=== PATIENT | female | born 1935 | race Caucasian/White ===

== ENCOUNTER 2016-05-09 22:05 | Emergency (ER) | payer OTHER, BC ==
[~2016-05-09] VITALS: Ht 165.1 cm; Wt 71.4 kg
[~2016-05-09 22:05] MED LIST: CARB0.5D28 OPB; CHLO0.1222 PO; DILT-115 PO; ESCI1TAB18 PO; SPIR25TA PO; VALA1TAB31 PO; [UNRECOGNIZED DRUG - CODE] PO
[2016-05-09 22:09] VITALS: TEMP 36.6; Ht 165.1 cm; Wt 71.4 kg
[2016-05-09 22:45] LABS: BASO % 0.3 %; BASO ABS # 0.02 K/uL (0-0.2); COMPLETE YES; EOS % 1.7 %; HEMATOCRIT 42.8 % (37-47); IG% 0.2 %; LYMPH ABS # 0.97 K/uL (1.2-3.4); MEAN CELL VOLUME 97.9 fL (80-100); MEAN CORPUSCULAR HEMOGLOBIN 34.8 pg (25-34); MEAN CORPUSCULAR HGB CONC 35.5 g/dl (32-36); MONO % 13.1 %; NEUT % 69.7 %; PLATELET COUNT 184 K/uL (130-400); RED BLOOD COUNT 4.37 M/uL (4.2-5.4); WHITE BLOOD COUNT 6.48 K/uL (4.8-10.8)
--- NOTE | 2016-05-09 22:56 | DIAGNOSTIC IMAGING REPORT ---
CT SCAN OF THE BRAIN WITHOUT IV CONTRAST CLINICAL HISTORY: Lightheadedness. Hypertension. COMPARISON STUDY: CT of the brain dated 01/24/2014. TECHNIQUE: Unenhanced axial CT scan of the brain is performed from the vertex to the skull base. CT DOSE: 580.48 mGy.cm FINDINGS: Brain parenchyma: There are age-related involutional changes noting mild subcortical and periventricular microangiopathic change. There is no hemorrhage, mass effect, or evidence of acute territorial ischemia by CT criteria. Sellers-white matter is preserved. No extra-axial fluid collection is seen. Ventricles, sulci, cisterns: Prominent secondary to involutional change. Intracranial vasculature: There is atherosclerotic calcification of the cavernous carotid and vertebral arteries. Calvarium: Unremarkable. Sinuses and mastoids: There are secretions within the sphenoid sinuses. The remaining visualized paranasal sinuses are clear. The mastoid air cells are well pneumatized. Orbits: The bony orbits are grossly intact. There are bilateral ocular lens implants. IMPRESSION: There is no hemorrhage, mass effect, or evidence of acute territorial ischemia by CT criteria. Electronically signed by: New Smith M.D. 05/09/2016 10:54 PM Dictated Date/Time: 05/09/2016 10:52 PM
[2016-05-09 23:02] LABS: BLOOD UREA NITROGEN 16 mg/dl (7-18); BUN/CREATININE RATIO 15.5 (10-20); CALCIUM 8.8 mg/dl (8.5-10.1); CARBON DIOXIDE 20 mmol/L (21-32); CHLORIDE 103 mmol/L (98-107); GLUCOSE 95 mg/dl (70-99); POTASSIUM 4.1 mmol/L (3.5-5.1); SODIUM 136 mmol/L (136-145)
[2016-05-09] MEDS ORDERED: PANT40TA PO (23:07)
[2016-05-09] MEDS ORDERED: OMEG10007 PO (23:07)
[2016-05-09] MEDS ORDERED: SPR25 PO (23:07)
[2016-05-09] MEDS ORDERED: GLUC500C4 PO (23:07)
[2016-05-09] MEDS ORDERED: LXP10 PO (23:07)
[2016-05-09] MEDS ORDERED: MISCCAP80 PO (23:07)
[2016-05-09] MEDS ORDERED: VALS-10 PO (23:07)
[2016-05-09 23:52] VITALS: BP 140/86; PULSE 71; O2SAT 96
--- NOTE | 2016-05-10 02:13 | EMERGENCY ROOM VISIT NOTE ---
History First contact with patient: 22:12 Chief Complaint: HYPERTENSION Stated Complaint: HYPERTENSION, LIGHTHEADED History of Present Illness The patient is a 81 year old female who presents to the Emergency Room with complaints of high blood pressure and feeling lightheaded today. Patient's been monitoring her blood pressure for the past 2 days and this was 200/160. Patient saw the family care DrAditi today and increased her spironolactone. Patient has been slowing tapering off her Lexapro. She's been suffering from a chronic rash and they believe the rash might be due to this medication. Patient denies chest pain, dyspnea, fever, chills, numbness, tingling, weakness , vision problems, localized weakness, vomiting, diarrhea. Patient is tolerating by mouth fluids and food. She states she is just concerned about her blood pressure. She sees her family care doctor this Sunday for follow- up. . Review of Systems See HPI for pertinent positives & negatives. A total of 10 systems reviewed and were otherwise negative. Past Medical/Surgical History Medical Problems: (1) Dysthymic Disorder (2) History of anxiety (3) Hyperlipidemia Nec/Nos (4) Hypertension Nos (5) Osteoarthros Nos-L/Leg Surgical Problems: (1) Hip Joint Replacement Status (2) History of hip replacement, total Family History Heart disease Social History Smoking Status: Former Smoker Alcohol Use: none Drug Use: none Marital Status: Housing Status: lives with family Occupation Status: retired Current/Historical Medications Scheduled Escitalopram Oxalate (Escitalopram Oxalate), 10 MG PO Q2D Fish Oil ([place]-3), 1 CAP PO QPM Glucosamine Sulfate (Glucosamine), 1 TAB PO QPM Pantoprazole (Protonix), 1 TAB PO DAILY Probiotic Product (Probiotic), 1 CAP PO QPM Spironolactone (Spironolactone), 25 MG PO DAILY Valsartan/Hctz (Diovan Hct 320MG/12.5MG), 1 TAB PO DAILY Scheduled PRN Carboxymethylcellulose Sodium (Refresh Tears), 1 DROP OPB 5XD PRN for DRY EYES Allergies Coded Allergies: No Known Allergies (Unverified , 05/09/16) Physical Exam Vital Signs Date Time Temp Pulse Resp B/P Pulse Ox O2 Delivery O2 Flow Rate FiO2 05/09/16 23:52 71 18 140/86 96 Room Air 05/09/16 22:09 36.6 74 20 160/77 92 Room Air Pain Rating (0-10): 0 Physical Exam VITALS: Vitals are noted on the nurse's note and reviewed by myself. Vital signs hypertensive GENERAL: Pleasant female anxious-appearing, in no acute distress, nondiaphoretic , well-developed well-nourished. SKIN: The skin was without rashes, erythema, edema, or bruising. There is no tenting of the skin. Capillary reflex less than 2 seconds. HEAD: Normocephalic atraumatic. EARS: External auditory canals clear, tympanic membranes pearly corey without erythema or effusion bilaterally. EYES: Pupils equal round and reactive to light and accommodation. Conjunctivae without injection, sclerae without icterus. Extraocular movements intact. NOSE: Patent, turbinates without inflammation or discharge. MOUTH: Mucous membranes moist. Pharynx without erythema or exudate. Uvula midline. Airway patent. Tongue does not deviate. NECK: Supple without nuchal rigidity. No lymphadenopathy. No thyromegaly. Cervical spine is nontender. No JVD. HEART: Regular rate and rhythm LUNGS: Clear to auscultation bilaterally without wheezes, rales or rhonchi. No dullness to percussion. No retractions or accessory muscle use. ABDOMEN: Positive bowel sounds x 4. Normal tympanic percussion. Soft, nontender, without masses or organomegaly. Paulino sign negative. No guarding or rebound tenderness. MUSCULOSKELETAL: No muscle atrophy, erythema, or edema noted. NEURO: Patient was alert and oriented to person place and time. Normal sensation to light and sharp touch. No focal neurological deficits. Medical Decision & Procedures Laboratory Results 05/09/16 22:35 Red Blood Count 4.37, Mean Corpuscular Volume 97.9, Mean Corpuscular Hemoglobin 34.8, Mean Corpuscular Hemoglobin Concent 35.5, Mean Platelet Volume 11.0, Neutrophils (%) (Auto) 69.7, Lymphocytes (%) (Auto) 15.0, Monocytes (%) (Auto) 13.1, Eosinophils (%) (Auto) 1.7, Basophils (%) (Auto) 0.3, Neutrophils # (Auto ) 4.52, Lymphocytes # (Auto) 0.97, Monocytes # (Auto) 0.85, Eosinophils # (Auto ) 0.11, Basophils # (Auto) 0.02 05/09/16 22:35 Test 05/09/16 22:35 White Blood Count 6.48 K/uL (4.8-10.8) Red Blood Count 4.37 M/uL (4.2-5.4) Hemoglobin 15.2 g/dL (12.0-16.0) Hematocrit 42.8 % (37-47) Mean Corpuscular Volume 97.9 fL (80-100) Mean Corpuscular Hemoglobin 34.8 pg (25-34) Mean Corpuscular Hemoglobin Concent 35.5 g/dl (32-36) Platelet Count 184 K/uL (130-400) Mean Platelet Volume 11.0 fL (7.4-10.4) Neutrophils (%) (Auto) 69.7 % Lymphocytes (%) (Auto) 15.0 % Monocytes (%) (Auto) 13.1 % Eosinophils (%) (Auto) 1.7 % Basophils (%) (Auto) 0.3 % Neutrophils # (Auto) 4.52 K/uL (1.4-6.5) Lymphocytes # (Auto) 0.97 K/uL (1.2-3.4) Monocytes # (Auto) 0.85 K/uL (0.11-0.59) Eosinophils # (Auto) 0.11 K/uL (0-0.5) Basophils # (Auto) 0.02 K/uL (0-0.2) RDW Standard Deviation 47.4 fL (36.4-46.3) RDW Coefficient of Variation 13.2 % (11.5-14.5) Immature Granulocyte % (Auto) 0.2 % Immature Granulocyte # (Auto) 0.01 K/uL (0.00-0.02) Anion Gap 13.0 mmol/L (3-11) Est Creatinine Clear Calc Drug Dose 43.7 ml/min Estimated GFR () 61.2 Estimated GFR (Non- 52.8 BUN/Creatinine Ratio 15.5 (10-20) Calcium Level 8.8 mg/dl (8.5-10.1) Troponin I < 0.015 ng/ml (0-0.045) Thyroid Stimulating Hormone (TSH) 5.440 uIu/ml (0.300-4.500) ED Course Prior records/ancillary studies reviewed regarding the history above. Triage Nursing notes reviewed. Additional history obtained from the family. The patient's history was concerning for hypertension. Differential diagnosis: Etiologies such as benign hypertension, hypertensive emergency, cardiovascular pathology, pheochromocytoma, electrolyte abnormality, renal disease, endorgan damage, as well as others were entertained. Physical examination: As above. No signs of end organ damage. ER treatment provided: Patient was observed On reassessment the patient felt better. Diagnostic interpretation by me: The electrocardiogram was negative for pathologic change. Normal sinus, normal intervals, no acute ST-T changes. Impression normal sinus rhythm interpreted by myself The labs revealed no worrisome leukocytosis or electrolyte abnormality. Negative troponin Imaging studies: Head CT negative for intracranial bleed per radiology This appears to be consistent with blood pressure that resolved on its own. This could be related to patient tapering off her Lexapro. Patient was also anxious appearing. Patient was neurovascularly and neurologically intact. Unremarkable workup as above. She is advised to rest, decrease stress and to follow-up family care as scheduled. She is advised to return to the ER immediately for headache, elevated blood pressure, chest pain, weakness, worsening signs or symptoms or as needed.. By the evaluation outlined above emergent etiologies such as hypertensive emergency, pheochromocytoma, endorgan damage, cardiac ischemia, aortic dissection, pulmonary embolism, pneumonia, pneumothorax, infections, gastrointestinal, as well as others were deemed relatively unlikely. The pt informed about the findings as listed above. All questions were answered and pleased with the treatment. Return instructions were outlined and the patient was discharged in stable condition. Referral: The patient was referred back to their primary care physician for follow-up in 2 to 3 days for a recheck of the current condition. Case reviewed with my attending Medical Decision As above Impression Primary Impression: Hypertension Departure Information Dispostion Home / Self-Care Condition GOOD Forms WORK / SCHOOL INSTRUCTIONS, HOME CARE DOCUMENTATION FORM, IMPORTANT VISIT INFORMATION Patient Instructions [facility] Additional Instructions Monitor your blood pressure. Decrease stress, caffeine, alcohol, tobacco and salt intake. Keep your appointment as scheduled this week with your family doctor. Return to ER sooner for chest pain, difficulty breathing, elevated blood pressure, weakness, worsening signs or symptoms or as needed.
== END 2016-05-09 23:56 | disposition home or self-care (01) ==
LOC: C.EDB 22:06 → C.EDC 23:56
DX: I10 Essential (primary) hypertension (principal); E78.5 Hyperlipidemia, unspecified; Z87.891 Personal history of nicotine dependence; F34.1 Dysthymic disorder

== ENCOUNTER → 2016-05-24 | Outpatient (CLI) | payer OTHER, BC ==
[~2016-05-24] MED LIST changes: +APIX1TAB3 PO; +BUDE0.09 PO; -CHLO0.1222 PO; -DILT-115 PO; +DILT-119 PO; -ESCI1TAB18 PO; +GLUC500C4 PO; +LXP10 PO; +METO25TA56 PO; +MISCCAP80 PO; +OMEG10007 PO; +PANT40TA PO; -SPIR25TA PO; +SPR25 PO; -VALA1TAB31 PO; +VALS-10 PO; -[UNRECOGNIZED DRUG - CODE] PO
[2016-05-24 11:56] LABS: COMPLETE YES; EOS % 0.8 %; HEMATOCRIT 48.7 % (37-47); IG% 0.2 %; LYMPH % 11.4 %; LYMPH ABS # 0.98 K/uL (1.2-3.4); MEAN CELL VOLUME 95.1 fL (80-100); MEAN CORPUSCULAR HEMOGLOBIN 34.6 pg (25-34); MEAN CORPUSCULAR HGB CONC 36.3 g/dl (32-36); MEAN PLATELET VOLUME 10.8 fL (7.4-10.4); MONO % 10.9 %; NEUT % 76.7 %; PLATELET COUNT 166 K/uL (130-400); RED BLOOD COUNT 5.12 M/uL (4.2-5.4)
--- NOTE | 2016-05-24 12:09 | DIAGNOSTIC IMAGING REPORT ---
CHEST 2 VIEWS ROUTINE HISTORY: Fatigue. Upper rest for infection. Cough. Assess for pneumonia. COMPARISON: Chest 06/29/2013. FINDINGS: Stable calcified granuloma within the right upper lobe and calcified right hilar lymph nodes. No focal lung consolidations to suggest pneumonia. No evidence for pulmonary edema. The heart is normal in size. No pleural effusions. No pneumothorax. IMPRESSION: No focal lung consolidations to suggest pneumonia. Electronically signed by: Neftali Blackman M.D. 05/24/2016 12:08 PM Dictated Date/Time: 05/24/2016 12:06 PM
[2016-05-24 12:32] LABS: ALT/SGPT 21 U/L (12-78); BLOOD UREA NITROGEN 20 mg/dl (7-18); BUN/CREATININE RATIO 15.1 (10-20); CALCIUM 9.4 mg/dl (8.5-10.1); CARBON DIOXIDE 23 mmol/L (21-32); CHLORIDE 99 mmol/L (98-107); GLUCOSE 97 mg/dl (70-99); MAGNESIUM 1.8 mg/dl (1.8-2.4); POTASSIUM 4.5 mmol/L (3.5-5.1); SODIUM 133 mmol/L (136-145)
[2016-05-24 12:35] LABS: ALKALINE PHOSPHATASE 112 U/L (45-117); AST/SGOT 20 U/L (15-37)
== END | disposition home or self-care (01) ==
LOC: C.RAD 11:35
PROVIDERS: ATTEND Nurse Practitioner Family
DX: R53.83 Other fatigue (principal); I10 Essential (primary) hypertension

== ENCOUNTER 2016-06-29 12:22 | Inpatient (IN) | payer OTHER, BC ==
[~2016-06-29] VITALS: Ht 167.6 cm; Wt 69.2 kg
[~2016-06-29 12:22] MED LIST changes: -APIX1TAB3 PO; -BUDE0.09 PO; -DILT-119 PO; -METO25TA56 PO
[2016-06-29] MEDS ORDERED: OPTIRAY 320 IV PRN (14:00)
[2016-06-29 14:32] LABS: BASO % 0.1 %; BASO ABS # 0.01 K/uL (0-0.2); COMPLETE YES; EOS % 0.6 %; HEMATOCRIT 40.7 % (37-47); IG% 0.3 %; LYMPH % 8.2 %; LYMPH ABS # 0.72 K/uL (1.2-3.4); MEAN CELL VOLUME 94.2 fL (80-100); MEAN CORPUSCULAR HGB CONC 37.1 g/dl (32-36); MEAN PLATELET VOLUME 10.5 fL (7.4-10.4); MONO % 16.4 %; NEUT % 74.4 %; PLATELET COUNT 195 K/uL (130-400); RED BLOOD COUNT 4.32 M/uL (4.2-5.4)
[2016-06-29] MEDS ORDERED: BUDE0.09 PO (14:46)
[2016-06-29] MEDS ORDERED: DILT-119 PO (14:46)
[2016-06-29] MEDS ORDERED: METO25TA56 PO (14:46)
[2016-06-29 14:51] LABS: ALT/SGPT 134 U/L (12-78); AST/SGOT 112 U/L (15-37); BLOOD UREA NITROGEN 17 mg/dl (7-18); CALCIUM 8.9 mg/dl (8.5-10.1); CARBON DIOXIDE 25 mmol/L (21-32); CHLORIDE 99 mmol/L (98-107); CREATININE 0.92 mg/dl (0.60-1.20); GLUCOSE 98 mg/dl (70-99); POTASSIUM 4.5 mmol/L (3.5-5.1); SODIUM 133 mmol/L (136-145)
[2016-06-29 14:56] LABS: ALB/GLOB RATIO 0.7 (0.9-2); ALKALINE PHOSPHATASE 189 U/L (45-117); CKMB/CK RATIO 3.8 (0-3.0)
--- NOTE | 2016-06-29 15:41 | DIAGNOSTIC IMAGING REPORT ---
CT ANGIOGRAM OF THE CHEST CLINICAL HISTORY: Atypical chest pain COMPARISON STUDY: Chest x-ray dated 05/24/2016 TECHNIQUE: Following the IV administration of 92 mL of Optiray-320, CT angiogram of the thorax was performed from the thoracic inlet to the lung bases utilizing the pulmonary embolus protocol. Images are reviewed in the axial, sagittal, and coronal planes. IV contrast was administered without complication. MIP imaging was performed. CT DOSE: 264.62 mGy.cm FINDINGS: There is a 12 mm left lobe thyroid nodule. No pathologically enlarged axillary mediastinal or hilar lymph nodes were visualized. There was no evidence of thoracic aortic dilatation. There are bilateral upper and lower lobe pulmonary artery filling defects. There is a saddle embolus measuring 9 mm in diameter. There is a trace right pleural effusion. There is pulmonary emphysema. There is a peripheral airspace opacity within the right lower lobe. This likely represents a small infarct or focal atelectatic change. There are minor peripheral airspace opacities within the left upper lobe. IMPRESSION: 1. Acute bilateral pulmonary embolism. There is a moderate thrombus burden. A saddle embolus is visualized. Electronically signed by: Felice Daigle M.D. 06/29/2016 3:40 PM Dictated Date/Time: 06/29/2016 3:36 PM
[2016-06-29] MEDS ORDERED: HEPARIN SOD (PORCINE) 1000 UNIT/ML 10 ML VIAL ONE (16:01)
[2016-06-29] MEDS ORDERED: HEPARIN 25000 UNIT/500 ML D5W ONE (16:01)
[2016-06-29 16:03] LABS: PARTIAL THROMBOPLASTIN RATIO 1.2; PROTHROMBIN TIME (PATIENT) 10.3 SECONDS (9.0-12.0)
--- NOTE | 2016-06-29 17:25 | DIAGNOSTIC IMAGING REPORT ---
ULTRASOUND RIGHT LOWER EXTREMITY VENOUS CLINICAL HISTORY: Right leg swelling. COMPARISON STUDY: No priors. TECHNIQUE: Real-time, grayscale, and color Doppler sonography of the deep veins of the right lower extremity was performed from the inguinal crease to the calf. Compression and augmentation were utilized. FINDINGS: There is occlusive deep venous thrombosis extending from the proximal superficial femoral vein to the calf. The common femoral vein is patent and normally compressible. The greater saphenous vein and the profunda femoris vein at the junction with the common femoral vein appear clear. IMPRESSION: Extensive occlusive right lower extremity deep venous thrombosis as above. Electronically signed by: New Smith M.D. 06/29/2016 5:24 PM Dictated Date/Time: 06/29/2016 5:22 PM
[2016-06-29] MEDS ORDERED: ONDANSETRON INJ 2 MG/ML 2 ML VIAL IV PRN (18:00)
[2016-06-29] MEDS ORDERED: NITROGLYCERIN 0.4 MG SL PER TAB CHARGE SL PRN (18:00)
[2016-06-29] MEDS ORDERED: ACETAMINOPHEN 325 MG TAB PO PRN (18:00)
--- NOTE | 2016-06-29 18:37 | History and Physical ---
History & Physical Date & Time of Service: Jun 29, 2016 at 18:02 Chief Complaint: Legs Swelling W/Chest Discomfort Primary Care Physician: Senia Bangura C.R.NAditiPAditi History of Present Illness Source: patient, family This is a 81 y/o female with PMHx of HTN presented to the ED complaining of right sided chest pain X3days. She states that she only feels the pain with deep inspiration or exertion. Denies any pain at rest. She states that for past few weeks she also noticed right sided leg swelling. She states that she is pretty active at home. Even when she sits down, she wouldn't sit down for more than 1 hr. Denies any recent trip or prolong immobility. Denies any SOB, calf tenderness, weakness, numbness/tingling of the extremities, nausea, vomiting, or abdominal pain. Denies any previous hx of blood clots. She used to smoke but quit about 40yrs ago. She drinks socially. Past Medical/Surgical History Medical Problems: (1) History of anxiety Status: Chronic (2) HTN Status: Chronic (3) Colitis Status: Chronic Surgical Problems: (1) History of hip replacement, total Status: Resolved Family History Heart disease Social History Smoking Status: Former Smoker Alcohol Use: socially Drug Use: none Marital Status: Housing status: lives with family Occupational Status: retired Immunizations History of Influenza Vaccine: Yes History of Tetanus Vaccine?: Yes History of Pneumococcal: Yes History of Hepatitis B Vaccine: No Multi-Drug Resistant Organisms History of MDRO: No Allergies Coded Allergies: No Known Allergies (Unverified , 06/29/16) Home Medications Scheduled Budesonide (Budesonide), 1 TAB PO DAILY Diltiazem Hcl Ext Rel (Tiazac), 360 MG PO DAILY Metoprolol Tartrate (Lopressor) (Lopressor), 12.5 MG PO DAILY Spironolactone (Spironolactone), 25 MG PO DAILY Review of Systems Constitutional: No chills, No fever, No weight loss ENT: No sore throat Respiratory: No cough, No dyspnea at rest, No dyspnea on exertion, No hemoptysis, No shortness of breath, No sputum, No wheezing Cardiovascular: + chest pain (Right sided chest pain with deep inspiration) Abdomen: No constipation, No diarrhea, No nausea, No pain, No vomiting Musculoskeletal: + swelling (R leg swelling), No calf pain, No muscle pain Genitourinary - Female: No dysuria Neurologic: No numbness/tingling, No weakness Endocrine: No fatigue Hematologic / Lymphatic: No clotting problems Integumentary: No rash Physical Exam Vital Signs Date Time Temp Pulse Resp B/P Pulse Ox O2 Delivery O2 Flow Rate FiO2 06/29/16 17:27 99 18 126/85 95 Room Air 06/29/16 17:27 99 06/29/16 16:34 96 18 139/80 95 Room Air 06/29/16 14:50 90 18 143/103 94 Room Air 06/29/16 14:24 96 Room Air 06/29/16 12:32 36.6 89 20 141/86 95 Room Air General Appearance: WD/WN, no apparent distress Head: normocephalic, atraumatic Eyes: normal inspection, PERRL, EOMI ENT: pharynx normal Neck: supple, trachea midline Respiratory/Chest: chest non-tender, lungs clear, normal breath sounds, no respiratory distress, no accessory muscle use Cardiovascular: regular rate, rhythm, no murmur, normal peripheral pulses Abdomen/GI: normal bowel sounds, non tender, soft Extremities/Musculoskelatal: no calf tenderness, + pedal edema (trace of the edema on the distal right lower ext) Neurologic/Psych: alert, normal mood/affect, oriented x 3 Skin: normal color, warm/dry, + pertinent finding (noted bruises b/l legs) Diagnostics Laboratory Results Results Past 24 Hours Test 06/29/16 14:20 06/29/16 16:22 Range/Units White Blood Count 8.80 4.8-10.8 K/uL Red Blood Count 4.32 4.2-5.4 M/uL Hemoglobin 15.1 12.0-16.0 g/dL Hematocrit 40.7 37-47 % Mean Corpuscular Volume 94.2 80-100 fL Mean Corpuscular Hemoglobin 35.0 25-34 pg Mean Corpuscular Hemoglobin Concent 37.1 32-36 g/dl Platelet Count 195 130-400 K/uL Mean Platelet Volume 10.5 7.4-10.4 fL Neutrophils (%) (Auto) 74.4 % Lymphocytes (%) (Auto) 8.2 % Monocytes (%) (Auto) 16.4 % Eosinophils (%) (Auto) 0.6 % Basophils (%) (Auto) 0.1 % Neutrophils # (Auto) 6.55 1.4-6.5 K/uL Lymphocytes # (Auto) 0.72 1.2-3.4 K/uL Monocytes # (Auto) 1.44 0.11-0.59 K/uL Eosinophils # (Auto) 0.05 0-0.5 K/uL Basophils # (Auto) 0.01 0-0.2 K/uL RDW Standard Deviation 45.3 36.4-46.3 fL RDW Coefficient of Variation 13.0 11.5-14.5 % Immature Granulocyte % (Auto) 0.3 % Immature Granulocyte # (Auto) 0.03 0.00-0.02 K/uL Prothrombin Time 10.3 9.0-12.0 SECONDS Prothromb Time International Ratio 1.0 0.9-1.1 Activated Partial Thromboplast Time 30.3 21.0-31.0 SECONDS Partial Thromboplastin Ratio 1.2 D-Dimer 4100 0-500 ug/L FEU Sodium Level 133 136-145 mmol/L Potassium Level 4.5 3.5-5.1 mmol/L Chloride Level 99 98-107 mmol/L Carbon Dioxide Level 25 21-32 mmol/L Anion Gap 9.0 3-11 mmol/L Blood Urea Nitrogen 17 7-18 mg/dl Creatinine 0.92 0.60-1.20 mg/dl Est Creatinine Clear Calc Drug Dose 44.9 ml/min Estimated GFR () 67.7 Estimated GFR (Non- 58.4 BUN/Creatinine Ratio 18.0 10-20 Random Glucose 98 70-99 mg/dl Calcium Level 8.9 8.5-10.1 mg/dl Total Bilirubin 1.1 0.2-1 mg/dl Aspartate Amino Transf (AST/SGOT) 112 15-37 U/L Alanine Aminotransferase (ALT/SGPT) 134 12-78 U/L Alkaline Phosphatase 189 45-117 U/L Total Creatine Kinase 42 26-192 U/L Creatine Kinase MB 1.6 0.5-3.6 ng/ml Creatine Kinase MB Ratio 3.8 0-3.0 Troponin I < 0.015 0-0.045 ng/ml Total Protein 7.2 6.4-8.2 gm/dl Albumin 3.0 3.4-5.0 gm/dl Globulin 4.2 2.5-4.0 gm/dl Albumin/Globulin Ratio 0.7 0.9-2 Diagnostic Radiology Patient Name: ADRIANA GORDON Unit Number: [id number] Dictated: 06/29/161535 Transcribed: 06/29/161535 ARG Printed Date/Time: [~ rep prt dt]/[~ rep prt tm] [~ rep ct labl] - [~ rep ct ivnm] [facility] [place] [address] Dictated: 06/29/161535 Transcribed: 06/29/161535 ARG Printed Date/Time: [~ rep prt dt]/[~ rep prt tm] [~ rep ct labl] - [~ rep ct ivnm] CT ANGIOGRAM OF THE CHEST CLINICAL HISTORY: Atypical chest pain COMPARISON STUDY: Chest x-ray dated 05/24/2016 TECHNIQUE: Following the IV administration of 92 mL of Optiray-320, CT angiogram of the thorax was performed from the thoracic inlet to the lung bases utilizing the pulmonary embolus protocol. Images are reviewed in the axial, sagittal, and coronal planes. IV contrast was administered without complication. MIP imaging was performed. CT DOSE: 264.62 mGy.cm FINDINGS: There is a 12 mm left lobe thyroid nodule. No pathologically enlarged axillary mediastinal or hilar lymph nodes were visualized. There was no evidence of thoracic aortic dilatation. There are bilateral upper and lower lobe pulmonary artery filling defects. There is a saddle embolus measuring 9 mm in diameter. There is a trace right pleural effusion. There is pulmonary emphysema. There is a peripheral airspace opacity within the right lower lobe. This likely represents a small infarct or focal atelectatic change. There are minor peripheral airspace opacities within the left upper lobe. IMPRESSION: 1. Acute bilateral pulmonary embolism. There is a moderate thrombus burden. A saddle embolus is visualized. Electronically signed by: Felice Daigle M.D. 06/29/2016 3:40 PM Dictated Date/Time: 06/29/2016 3:36 PM The status of this report is Signed. Draft = Not yet reviewed or approved by Radiologist. Signed = Reviewed and approved by Radiologist. <AttendingPhy></AttendingPhy> <FamilyPhy>Senia Bangura C.RAditiN.P.</FamilyPhy> <PrimaryPhy>Senia Bangura C.R.NAditiP.</PrimaryPhy> <UnitNumber>[id number]</ UnitNumber> <VisitNumber>[id number]</VisitNumber> <PatientName>ADRIANA GORDON</ PatientName> <DateOfBirth>1935</DateOfBirth> <Location>C.EDB</Location> < ServiceDate>06/29/16</ServiceDate> <MNE>ESINDI</MNE> <OrderingPhy>Kerri Cordoba PA-C</OrderingPhy> <OrderingPhyMNE>f rep ord dr levy</OrderingPhyMNE> < DictatingPhyMNE>f rep dict dr levy</DictatingPhyMNE> <CCListMNE>f rep ct mne</ CCListMNE> <AdmittingPhyMNE>f pt admit dr levy</AdmittingPhyMNE> <AttendingPhyMNE >f pt attend dr levy</AttendingPhyMNE> <ConsultingPhyMNE>f pt consult dr levy</ConsultingPhyMNE> <FamilyPhyMNE>f pt fam dr levy</FamilyPhyMNE> <OtherPhyMNE>f pt other dr levy</OtherPhyMNE> < PrimaryPhyMNE>f pt prim care dr levy</PrimaryPhyMNE> <ReferringPhyMNE>f pt referring dr levy</ReferringPhyMNE> Patient Name: ADRIANA GORDON Unit Number: [id number] Dictated: 06/29/161721 Transcribed: 06/29/161721 EV Printed Date/Time: [~ rep prt dt]/[~ rep prt tm] [~ rep ct labl] - [~ rep ct ivnm] [facility] [place] [address] Dictated: 06/29/161721 Transcribed: 06/29/161721 EV Printed Date/Time: [~ rep prt dt]/[~ rep prt tm] [~ rep ct labl] - [~ rep ct ivnm] ULTRASOUND RIGHT LOWER EXTREMITY VENOUS CLINICAL HISTORY: Right leg swelling. COMPARISON STUDY: No priors. TECHNIQUE: Real-time, grayscale, and color Doppler sonography of the deep veins of the right lower extremity was performed from the inguinal crease to the calf. Compression and augmentation were utilized. FINDINGS: There is occlusive deep venous thrombosis extending from the proximal superficial femoral vein to the calf. The common femoral vein is patent and normally compressible. The greater saphenous vein and the profunda femoris vein at the junction with the common femoral vein appear clear. IMPRESSION: Extensive occlusive right lower extremity deep venous thrombosis as above. Electronically signed by: [place] M.D. 06/29/2016 5:24 PM Dictated Date/Time: 06/29/2016 5:22 PM The status of this report is Signed. Draft = Not yet reviewed or approved by Radiologist. Signed = Reviewed and approved by Radiologist. <AttendingPhy></AttendingPhy> <FamilyPhy>Senia Bangura C.R.N.P.</FamilyPhy> <PrimaryPhy>Senia Bangura C.R.N.P.</PrimaryPhy> <UnitNumber>[id number]</ UnitNumber> <VisitNumber>[id number]</VisitNumber> <PatientName>ADRIANA GORDON</ PatientName> <DateOfBirth>1935</DateOfBirth> <Location>C.EDB</Location> < ServiceDate>06/29/16</ServiceDate> <MNE>ESINDI</MNE> <OrderingPhy>Kerri Cordoba PA-C</OrderingPhy> <OrderingPhyMNE>f rep ord dr levy</OrderingPhyMNE> < DictatingPhyMNE>f rep dict dr levy</DictatingPhyMNE> <CCListMNE>f rep ct mne</ CCListMNE> <AdmittingPhyMNE>f pt admit dr levy</AdmittingPhyMNE> <AttendingPhyMNE >f pt attend dr levy</AttendingPhyMNE> <ConsultingPhyMNE>f pt consult dr levy</ConsultingPhyMNE> <FamilyPhyMNE>f pt fam dr levy</FamilyPhyMNE> <OtherPhyMNE>f pt other dr levy</OtherPhyMNE> < PrimaryPhyMNE>f pt prim care dr levy</PrimaryPhyMNE> <ReferringPhyMNE>f pt referring dr levy</ReferringPhyMNE> Impression Assessment and Plan 1. Saddle PE/DVT - Patient complains of right sided chest pain with deep inspiration and RLE swelling. Denies any SOB. The etiology is unclear. Patient states that she is pretty active at home and denies any recent trip or immobility. - Dimer was elevated in ED (4100) - INR is normal - CTA of chest showed: Acute bilateral pulmonary embolism, saddle embolus measuring 9 mm in diameter, and a trace right pleural effusion. - US of the right lower ext showed extensive occlusive right lower extremity deep venous thrombosis - Currently on heparin drip - Order Protein C & S activity, antithrombin III activity and factor V Leiden - Pending - Will continue to monitor in Tele 2. HTN - Continue with the home medications - C/w Diltiazem 360mg, Metoprolol 12.5mg, and Spirolactone 25mg 3. Colitis - C/w Budesonide 3mg 4. DVT prophylaxis - heparin 5. Code Status - DNR - Patient states that she has a living will Resident Physician Supervision Note: I was present with Dr. Robledo during the history and exam. I discussed the case with the resident and agree with the findings and plan as documented in the note. Any exceptions or clarifications are listed here: Agree with plan, unprovoked PE, no recent trips or trauma, agree with heparin drip. Genetic testing obtained Level of Care Telemetry Advanced Directives Existing Living Will: Yes Resuscitation Status DO NOT RESUSCITATE VTE Prophylaxis VTE Risk Assessment Done? Y/N: Yes Risk Level: Moderate Given or contraindicated: Other Anticoagulation Note >60minutes
[2016-06-29 18:57] VITALS: BP 160/88; PULSE 105; TEMP 36.9; O2SAT 96; Ht 167.6 cm; Wt 69.2 kg
[2016-06-29] MEDS ORDERED: NURSING VERBAL MED ORDER ONE (19:45)
[2016-06-29] MEDS: AUTOLOGOUS SERUM OP SCH (20:58)
[2016-06-29 23:08] LABS: PARTIAL THROMBOPLASTIN RATIO 3.5
[2016-06-29 23:17] VITALS: BP 134/80; PULSE 94; TEMP 36.8; O2SAT 92
[2016-06-29] MEDS: HEPARIN 25,000 UNIT/500ML D5W 500 ML IV PRN (23:50)
[2016-06-30 04:00] VITALS: BP 135/80; PULSE 90; TEMP 36.6; O2SAT 92
[2016-06-30 06:25] LABS: HEMATOCRIT 40.2 % (37-47); MEAN CELL VOLUME 95.7 fL (80-100); MEAN CORPUSCULAR HGB CONC 36.6 g/dl (32-36); MEAN PLATELET VOLUME 10.9 fL (7.4-10.4); PLATELET COUNT 214 K/uL (130-400); WHITE BLOOD COUNT 9.09 K/uL (4.8-10.8)
[2016-06-30 06:45] LABS: PARTIAL THROMBOPLASTIN RATIO 2.8; PROTHROMBIN TIME (PATIENT) 10.9 SECONDS (9.0-12.0)
[2016-06-30 06:47] LABS: BUN/CREATININE RATIO 16.8 (10-20); CALCIUM 9.1 mg/dl (8.5-10.1); CREATININE 0.8 mg/dl (0.60-1.20); POTASSIUM 3.9 mmol/L (3.5-5.1)
[2016-06-30 07:30] VITALS: BP 116/66; PULSE 95; TEMP 36.7; O2SAT 93
--- NOTE | 2016-06-30 07:34 | Hospitalist Progress Note ---
Hospitalist Progress Note Date of Service Jun 30, 2016. (Wilma Kwan ., SEFERINO) Subjective Pt evaluation today including: conversation w/ patient, conversation w/ family , physical exam, chart review, lab review, review of studies, review of inpatient medication list Voiding: no voiding problems, no incontinence Patient states she is feeling well. She is eating and drinking OK. +right-sided pain under breast. Patient denies any fever, chills, sweats, lightheadedness, dizziness, vision changes, CP, palpitations, edema, SOB, wheezing, cough, abdominal pain, nausea, vomiting, diarrhea, urinary symptoms, melena, numbness/ tingling, weakness, muscle/joint pain, anxiety/depression, active bleeding, or new skin discoloration/changes. (Wilma Kwan ., ANNE MARIEC) Medications Current Inpatient Medications Medications (Trade) Dose Ordered Sig/Khadijah Route Start Time Stop Time Status Last Admin Dose Admin Ioversol (Optiray 320) 125 ml UD PRN IV 06/29/16 14:00 07/03/16 13:59 Acetaminophen (Tylenol Tab) 650 mg Q4H PRN PO 06/29/16 18:00 07/29/16 17:59 06/30/16 08:08 650 MG Ondansetron HCl (Zofran Inj) 4 mg Q6H PRN IV 06/29/16 18:00 07/29/16 17:59 06/30/16 07:53 4 MG Nitroglycerin (Nitrostat Tab) 0.4 mg UD PRN SL 06/29/16 18:00 07/29/16 17:59 Budesonide (Entocort EC Cap) 3 mg DAILY PO 06/30/16 09:00 07/30/16 08:59 06/30/16 08:09 3 MG Diltiazem HCl (TIAzac CAP) 360 mg DAILY PO 06/30/16 09:00 07/30/16 08:59 06/30/16 08:09 360 MG Metoprolol Tartrate (Lopressor Tab) 12.5 mg DAILY PO 06/30/16 09:00 07/30/16 08:59 06/30/16 08:09 12.5 MG Spironolactone 25 mg 25 mg DAILY PO 06/30/16 09:00 07/30/16 08:59 06/30/16 08:09 25 MG Heparin Sodium/ Dextrose (Heparin 25,000 Unit/500ml D5W) 500 ml @ 19 mls/hr Q24H PRN IV 06/29/16 20:45 07/29/16 20:44 06/29/16 23:50 20 MLS/HR Non-Formulary Medication 1 ea 1 ea QID OP 06/29/16 21:00 07/29/16 20:59 06/30/16 12:55 1 EA Sodium Chloride (Nss 1000ml) 1,000 ml @ 75 mls/hr [id number] IV 06/30/16 07:45 07/30/16 07:44 06/30/16 07:59 75 MLS/HR (Wilma Kwan PA-C) Objective Vital Signs Date Time Temp Pulse Resp B/P Pulse Ox O2 Delivery O2 Flow Rate FiO2 06/30/16 04:00 Room Air 06/30/16 04:00 36.6 90 19 135/80 92 Room Air 06/30/16 00:00 Room Air 06/29/16 23:17 36.8 94 17 134/80 92 Room Air 06/29/16 20:00 Room Air 06/29/16 18:57 36.9 105 18 160/88 96 Room Air 06/29/16 18:23 98 18 147/82 95 Room Air 06/29/16 17:27 99 18 126/85 95 Room Air 06/29/16 17:27 99 06/29/16 16:34 96 18 139/80 95 Room Air 06/29/16 14:50 90 18 143/103 94 Room Air 06/29/16 14:24 96 Room Air 06/29/16 12:32 36.6 89 20 141/86 95 Room Air (Wilma Kwan PA-C) Physical Exam General Appearance: no apparent distress Eyes: normal inspection, PERRL ENT: hearing grossly normal Neck: supple Respiratory/Chest: lungs clear, no respiratory distress, no accessory muscle use Cardiovascular: regular rate, rhythm Abdomen: normal bowel sounds, non tender, soft Extremities: no calf tenderness, + swelling (non-pitting edema of right LE ) Neurologic/Psychiatric: alert, normal mood/affect, oriented x 3 Skin: normal color, warm/dry, no rash (Wilma Kwan PA-C) Laboratory Results Last 24 Hours Test 06/29/16 14:20 06/29/16 16:22 06/29/16 22:30 06/30/16 05:50 White Blood Count 8.80 K/uL 9.09 K/uL Red Blood Count 4.32 M/uL 4.20 M/uL Hemoglobin 15.1 g/dL 14.7 g/dL Hematocrit 40.7 % 40.2 % Mean Corpuscular Volume 94.2 fL 95.7 fL Mean Corpuscular Hemoglobin 35.0 pg 35.0 pg Mean Corpuscular Hemoglobin Concent 37.1 g/dl 36.6 g/dl Platelet Count 195 K/uL 214 K/uL Mean Platelet Volume 10.5 fL 10.9 fL Neutrophils (%) (Auto) 74.4 % Lymphocytes (%) (Auto) 8.2 % Monocytes (%) (Auto) 16.4 % Eosinophils (%) (Auto) 0.6 % Basophils (%) (Auto) 0.1 % Neutrophils # (Auto) 6.55 K/uL Lymphocytes # (Auto) 0.72 K/uL Monocytes # (Auto) 1.44 K/uL Eosinophils # (Auto) 0.05 K/uL Basophils # (Auto) 0.01 K/uL RDW Standard Deviation 45.3 fL 45.8 fL RDW Coefficient of Variation 13.0 % 13.1 % Immature Granulocyte % (Auto) 0.3 % Immature Granulocyte # (Auto) 0.03 K/uL Prothrombin Time 10.3 SECONDS 10.9 SECONDS Prothromb Time International Ratio 1.0 1.0 Activated Partial Thromboplast Time 30.3 SECONDS 91.7 SECONDS 72.5 SECONDS Partial Thromboplastin Ratio 1.2 3.5 2.8 D-Dimer 4100 ug/L FEU Sodium Level 133 mmol/L 131 mmol/L Potassium Level 4.5 mmol/L 3.9 mmol/L Chloride Level 99 mmol/L 97 mmol/L Carbon Dioxide Level 25 mmol/L 23 mmol/L Anion Gap 9.0 mmol/L 11.0 mmol/L Blood Urea Nitrogen 17 mg/dl 13 mg/dl Creatinine 0.92 mg/dl 0.80 mg/dl Est Creatinine Clear Calc Drug Dose 44.9 ml/min 51.6 ml/min Estimated GFR () 67.7 80.1 Estimated GFR (Non- 58.4 69.1 BUN/Creatinine Ratio 18.0 16.8 Random Glucose 98 mg/dl 96 mg/dl Calcium Level 8.9 mg/dl 9.1 mg/dl Total Bilirubin 1.1 mg/dl Aspartate Amino Transf (AST/SGOT) 112 U/L Alanine Aminotransferase (ALT/SGPT) 134 U/L Alkaline Phosphatase 189 U/L Total Creatine Kinase 42 U/L Creatine Kinase MB 1.6 ng/ml Creatine Kinase MB Ratio 3.8 Troponin I < 0.015 ng/ml Total Protein 7.2 gm/dl Albumin 3.0 gm/dl Globulin 4.2 gm/dl Albumin/Globulin Ratio 0.7 (Wilma Kwan, SEFERINO) Assessment and Plan This is a 81 y/o female with PMHx of HTN presented to the ED complaining of right sided chest pain X3days. She states that she only feels the pain with deep inspiration or exertion. Denies any pain at rest. She states that for past few weeks she also noticed right sided leg swelling. She states that she is pretty active at home. Even when she sits down, she wouldn't sit down for more than 1 hr. Denies any recent trip or prolong immobility. Denies any SOB, calf tenderness, weakness, numbness/tingling of the extremities, nausea, vomiting, or abdominal pain. Denies any previous hx of blood clots. She used to smoke but quit about 40yrs ago. She drinks socially. Saddle PE/DVT: - Admit to tele for cardiac monitoring--> reviewed- at 0624 run of v tach, otherwise episodes of sinus tachycardia (highest rate 120) - IV Heparin drip, bridge w/ Coumadin until INR within therapeutic range of 2-3 -- Discussed risk/benefits of Coumadin--> patient/ verbalized understanding and agree to proceed w/ Coumadin treatment - Imaging: -- CTA of chest showed- Acute bilateral pulmonary embolism, saddle embolus measuring 9 mm in diameter, and a trace right pleural effusion. -- US of the right lower extremity showed extensive occlusive right lower extremity deep venous thrombosis - Hypercoagulable workup pending - Follow PT/INR/PTT, CBC Hyponatremia: - Treat w/ IV NSS @ 75 ml/hr - Follow PRP Elevated LFTs: - Repeat LFT panel- trending downwards - Review of past records show LFTs WNL in 05/2016 HTN: Continue Diltiazem 360mg, Metoprolol 12.5mg, and Spirolactone 25mg Colitis: Continue Budesonide 3mg DVT prophylaxis: Heparin/Coumadin Code Status, LEVEL V, DNR Dispo: - From home, lives w/ - PT/OT evaluations (Wilma Kwan ., PABrice) Attending Attestation: Pt seen/examined, chart reviewed, care plan d/w GURU Kwan. I agree w/ the myrick components of her documentation. Pt's right sided chest pain is largely resolved. Denies dyspnea at rest or orthopnea. Good appetite. Reports that over the winter she was "sick for a lot of it." Wasn't as active as previous. But, no surgery, no travel. Weight loss was 4 pounds over winter. NO personal or family h/o DVT or PE. tele with 5-beat run of NS v-tach VSS, o2 sats wnl in RA gen - nad neck - no JVD heart - RRR, s1, s2 lungs - CTA b/l abd - soft, NT, no HSM ext - trace edema right leg, pulses 2+ b/l A/P: 1. RLE DVT (extensive) with PE (saddle/extensive) - unprovoked; greatest risk factor relative immobility 2. hemodynamically stable fortunately 3. abnormal LFTs, possibly 2nd to right heart strain from #1 4. chronic colitis on entocort 5. HTN 6. non-sustained V-tach in light of clot burden, age, etc would not use a DOAC but instead coumadin heparin drip for now for bridging purpose may be candidate to transition to lovenox in a couple of days and allow to return home on lovenox w/ coumadin consider outpatient w/u for occult malignancy if desired by patient; I get the sense she would not want such, however repeat LFTs in am NSS at 75cc/hr for another 24 hours as she is preload dependent cont entocort cont outpatient BP meds as tolerated check echo due to #1 and #6 PT, OT leave on tele Bobo MILLS MD (Stanley Mills MD)
[2016-06-30] MEDS: SODIUM CHLORIDE 0.9% 1000ML 1,000 ML IV SCH ×2 (07:59→21:17)
[2016-06-30] MEDS: AUTOLOGOUS SERUM OP SCH ×4 (08:02→22:01)
[2016-06-30] MEDS: METOPROLOL TARTRATE 25 MG TAB PO SCH (08:09)
[2016-06-30] MEDS: DILTIAZEM HCL (TIAzac) 180 MG CAPCR PO SCH (08:09)
[2016-06-30] MEDS: BUDESONIDE EC 3 MG CAP PO SCH (08:09)
[2016-06-30] MEDS: SPIRONOLACTONE 25 MG TAB PO SCH (08:09)
[2016-06-30 11:30] VITALS: BP 107/65; PULSE 67; TEMP 36.9; O2SAT 92
[2016-06-30 14:47] LABS: PARTIAL THROMBOPLASTIN RATIO 2.4
[2016-06-30 15:37] VITALS: BP 96/55; PULSE 70; TEMP 36.8; O2SAT 92
--- NOTE | 2016-06-30 16:13 | EMERGENCY ROOM VISIT NOTE ---
History First contact with patient: 13:28 Chief Complaint: CARDIAC ASSESSMENT Stated Complaint: DVT, PULMONARY EMBOLISM Nursing Triage Summary: Triage Note: Pt reports she was seen at [facility] and sent to ed for further eval. "i feel like i have a broken rib but i know i don't have a broken rib. " pt reports pain is at right ribs. pt denies any shortness of breath. pt reports right leg swelling x "some weeks ago." History of Present Illness The patient is a 81 year old female who presents to the Emergency Room with complaints of pain below her right breast. The patient states that she first noticed the pain a few days ago when she was riding in the car back from [place]. She initially thought that it may have been bruising from the seatbelt. She reports that it feels like a broken rib, but she denies any recent trauma to the ribs. She states the pain is worse with deep breath and she sometimes feels it is difficult to take a deep breath. She denies any true shortness of breath. The patient does report that she has had some right leg swelling over the past few weeks. She has some areas of bruising over both legs but states this is normal for her. The patient denies any cardiac history. She states that she had a recent cardiac workup including stress test , all of which was negative. She does report that she has had chronic diarrhea for the past several months and is currently taking a steroid for this. She denies any personal or family history of blood clots. She is not a smoker. She denies any recent prolonged travel. She denies any history of cancer. The patient denies palpitations, syncope, abdominal pain, nausea or vomiting. She denies cough or fevers/chills. Review of Systems A complete 10-point Review of Systems was discussed with the patient, with pertinent positives and negatives listed in the History of Present Illness. All remaining Review of Systems questions can be considered negative unless otherwise specified. Past Medical/Surgical History Medical Problems: (1) DVT (deep venous thrombosis) (2) Dysthymic Disorder (3) History of anxiety (4) Hyperlipidemia Nec/Nos (5) Hypertension Nos (6) Osteoarthros Nos-L/Leg (7) Pulmonary embolism Surgical Problems: (1) Hip Joint Replacement Status (2) History of hip replacement, total Family History Heart disease Social History Smoking Status: Never Smoker Alcohol Use: none Drug Use: none Marital Status: Housing Status: lives with family Occupation Status: retired Current/Historical Medications Scheduled Budesonide (Budesonide), 1 TAB PO DAILY Diltiazem Hcl Ext Rel (Tiazac), 360 MG PO DAILY Metoprolol Tartrate (Lopressor) (Lopressor), 12.5 MG PO DAILY Spironolactone (Spironolactone), 25 MG PO DAILY Allergies Coded Allergies: No Known Allergies (Unverified , 06/29/16) Physical Exam Vital Signs Date Time Temp Pulse Resp B/P Pulse Ox O2 Delivery O2 Flow Rate FiO2 06/29/16 17:27 99 18 126/85 95 Room Air 06/29/16 17:27 99 06/29/16 16:34 96 18 139/80 95 Room Air 06/29/16 14:50 90 18 143/103 94 Room Air 06/29/16 14:24 96 Room Air 06/29/16 12:32 36.6 89 20 141/86 95 Room Air Pain Rating (0-10): 0 Physical Exam VITALS: Vitals are noted on the nurse's note and reviewed by myself. Vital signs stable. GENERAL: This is an 81-year-old female, in no acute distress, nondiaphoretic, well-developed well-nourished. SKIN: Capillary reflex less than 2 seconds. HEENT: Normocephalic. PERRLA. EOMI. Nares patent. Mucous membranes moist. Neck is supple without nuchal rigidity. HEART: Mildly tachycardic, regular rhythm without murmurs gallops or rubs. LUNGS: Clear to auscultation bilaterally without wheezes, rales or rhonchi. No retractions or accessory muscle use. CHEST: No reproducible chest pain on palpation. ABDOMEN: Positive bowel sounds x 4. Soft, nontender to palpation. NEURO: Patient was alert and oriented to person place and time. Medical Decision & Procedures ER Provider Diagnostic Interpretation: CT ANGIOGRAM OF THE CHEST FINDINGS: There is a 12 mm left lobe thyroid nodule. No pathologically enlarged axillary mediastinal or hilar lymph nodes were visualized. There was no evidence of thoracic aortic dilatation. There are bilateral upper and lower lobe pulmonary artery filling defects. There is a saddle embolus measuring 9 mm in diameter. There is a trace right pleural effusion. There is pulmonary emphysema. There is a peripheral airspace opacity within the right lower lobe. This likely represents a small infarct or focal atelectatic change. There are minor peripheral airspace opacities within the left upper lobe. IMPRESSION: 1. Acute bilateral pulmonary embolism. There is a moderate thrombus burden. A saddle embolus is visualized. ULTRASOUND RIGHT LOWER EXTREMITY VENOUS FINDINGS: There is occlusive deep venous thrombosis extending from the proximal superficial femoral vein to the calf. The common femoral vein is patent and normally compressible. The greater saphenous vein and the profunda femoris vein at the junction with the common femoral vein appear clear. IMPRESSION: Extensive occlusive right lower extremity deep venous thrombosis as above. Laboratory Results Test 06/29/16 14:20 06/29/16 16:22 Immature Granulocyte % (Auto) 0.3 % White Blood Count 8.80 K/uL (4.8-10.8) Red Blood Count 4.32 M/uL (4.2-5.4) Hemoglobin 15.1 g/dL (12.0-16.0) Hematocrit 40.7 % (37-47) Mean Corpuscular Volume 94.2 fL (80-100) Mean Corpuscular Hemoglobin 35.0 pg (25-34) Mean Corpuscular Hemoglobin Concent 37.1 g/dl (32-36) Platelet Count 195 K/uL (130-400) Mean Platelet Volume 10.5 fL (7.4-10.4) Neutrophils (%) (Auto) 74.4 % Lymphocytes (%) (Auto) 8.2 % Monocytes (%) (Auto) 16.4 % Eosinophils (%) (Auto) 0.6 % Basophils (%) (Auto) 0.1 % Neutrophils # (Auto) 6.55 K/uL (1.4-6.5) Lymphocytes # (Auto) 0.72 K/uL (1.2-3.4) Monocytes # (Auto) 1.44 K/uL (0.11-0.59) Eosinophils # (Auto) 0.05 K/uL (0-0.5) Basophils # (Auto) 0.01 K/uL (0-0.2) Immature Granulocyte # (Auto) 0.03 K/uL (0.00-0.02) D-Dimer 4100 ug/L FEU (0-500) Total Creatine Kinase 42 U/L (26-192) Creatine Kinase MB 1.6 ng/ml (0.5-3.6) Creatine Kinase MB Ratio 3.8 (0-3.0) Troponin I < 0.015 ng/ml (0-0.045) Globulin 4.2 gm/dl (2.5-4.0) Albumin/Globulin Ratio 0.7 (0.9-2) Medications Administered Medications (Trade) Dose Ordered Sig/Khadijah Route Start Time Stop Time Status Last Admin Dose Admin Heparin Sodium/ Dextrose 1 ea NOW STAT N/A 06/29/16 15:46 06/29/16 15:49 DC 06/29/16 15:46 1 EA Heparin Sodium/ Dextrose 1 ea Q30M N/A 06/29/16 16:00 06/29/16 19:00 DC 06/29/16 16:00 1 EA Heparin Sodium (Porcine) (Heparin Iv Bolus) 10,000 unit STK-MED ONCE .ROUTE 06/29/16 16:01 06/29/16 16:05 DC 06/29/16 16:23 10,000 UNIT Heparin Sodium/ Dextrose (Heparin 25,000 Unit/500ml D5W) 25,000 unit STK-MED ONCE .ROUTE 06/29/16 16:01 06/29/16 16:05 DC 06/29/16 16:24 25,000 UNIT ECG Rate (beats per minute): 89 Rhythm: normal sinus Findings: T-wave inversion (Anterior), no acute ischemic change, no ectopy Medical Decision Differential diagnosis includes pulmonary embolism, acute coronary syndrome, pericarditis, costochondritis, muscular strain, fracture, contusion, cholecystitis, among others. The patient was evaluated as above. Labs were drawn and IV access was obtained. The patient was placed on the director global strategic publisher sales. Imaging studies were performed and read by radiology as above. The patient was reassessed multiple times during their stay in the emergency department and remained in stable condition. The patient is an 81-year-old female who presents today complaining of pain in her right ribs. Labs revealed no leukocytosis or concerning anemia. D-dimer significantly elevated at greater than 4000. Troponin. LFTs were elevated. This is of unclear clinical significance. EKG was interpreted by myself and showed no acute ischemic changes. CTA of the chest was performed and revealed bilateral pulmonary emboli with saddle embolus and moderate thrombus burden. The patient does not have any significant risk factors for pulmonary embolism. Hypercoagulability workup was ordered. Standard Heparin bolus and drip were given. The case was discussed with the [facility] hospitalist service, who agreed to evaluate the patient for admission. At that time, Doppler ultrasound of the right lower extremity was pending. The patient remained hemodynamically stable under my care. Oxygen saturations remained around 95% on room air. The patient was independently evaluated by Dr. Hoffman, ED attending physician, who agreed with my assessment and treatment plan. Impression Primary Impression: Pulmonary embolism Critical Care I have personally spent greater than 30 minutes of critical care time in the direct management of this patient. This includes bedside care, interpretation of diagnostic studies, and testing, discussion with consultants, patient, and family members, and other required patient management activities. This 30 minutes is in excess of all separately billable procedures. Departure Information Dispostion Being Evaluated By Hospitalist Condition FAIR Referrals Senia Bangura, C.R.N.P. (PCP) Forms IMPORTANT VISIT INFORMATION Patient Instructions My [facility] Health Problem Qualifiers Primary Impression: Pulmonary embolism Pulmonary embolism type: saddle Chronicity: acute
[2016-06-30] MEDS: HEPARIN 25,000 UNIT/500ML D5W 500 ML IV PRN (17:45)
[2016-06-30] MEDS: WARFARIN SOD 5 MG TAB PO SCH (18:37)
[2016-06-30 19:26] VITALS: BP 113/67; PULSE 79; TEMP 37; O2SAT 90
[2016-06-30 23:47] VITALS: BP 123/66; PULSE 76; TEMP 36.8; O2SAT 91
[2016-07-01] VITALS (9 sets, daily range): BP systolic 115–127; BP diastolic 65–70; PULSE 69–80; TEMP 36.5–36.8; O2SAT 91–94
[2016-07-01 04:45] LABS: HEMATOCRIT 36.3 % (37-47); MEAN CELL VOLUME 93.6 fL (80-100); MEAN CORPUSCULAR HEMOGLOBIN 33.8 pg (25-34); MEAN PLATELET VOLUME 10.3 fL (7.4-10.4); PLATELET COUNT 205 K/uL (130-400); RED BLOOD COUNT 3.88 M/uL (4.2-5.4); WHITE BLOOD COUNT 9.77 K/uL (4.8-10.8)
[2016-07-01 05:03] LABS: PARTIAL THROMBOPLASTIN RATIO 2.5; PROTHROMBIN TIME (PATIENT) 10.8 SECONDS (9.0-12.0)
[2016-07-01 05:06] LABS: BUN/CREATININE RATIO 14.1 (10-20); CALCIUM 8.3 mg/dl (8.5-10.1); CREATININE 0.79 mg/dl (0.60-1.20); POTASSIUM 3.9 mmol/L (3.5-5.1)
[2016-07-01 05:07] LABS: MEAN CORPUSCULAR HGB CONC 36.1 g/dl (32-36)
[2016-07-01] MEDS: HEPARIN 25,000 UNIT/500ML D5W 500 ML IV PRN ×2 (05:29→18:04)
[2016-07-01] MEDS: AUTOLOGOUS SERUM OP SCH ×4 (07:00→20:41)
[2016-07-01] MEDS: SPIRONOLACTONE 25 MG TAB PO SCH (07:02)
[2016-07-01] MEDS: METOPROLOL TARTRATE 25 MG TAB PO SCH (07:02)
[2016-07-01] MEDS: BUDESONIDE EC 3 MG CAP PO SCH (07:02)
[2016-07-01] MEDS: DILTIAZEM HCL (TIAzac) 180 MG CAPCR PO SCH (07:02)
[2016-07-01] MEDS: SODIUM CHLORIDE 0.9% 1000ML 1,000 ML IV SCH (10:25)
--- NOTE | 2016-07-01 14:56 | ECHOCARDIOGRAM REPORT ---
*NOTICE TO RECEIVING DEMOCRAT AGENCY This information is strictly Confidential and protected under [place] law. [place] law prohibits you from making any further disclosure of this information unless further disclosure is expressly permitted by the written consent of the person to whom it pertains or is authorized by law. A general authorization for the release of medical or other information is not sufficient for this purpose. Hospital accepts no responsibility if the information is made available to any other person, INCLUDING THE PATIENT. Interpretation Summary * Name: ADRIANA GORDON Study Date: 07/01/2016 01:37 PM BP: 124/65 mmHg * Patient Location: C.2E\S\E209\S\1 HR: 77 * : 1935 (M/d/yyy) Gender: Female Height: 66 in * Age: 81 yrs Ethnicity: CA Weight: 149 lb * Ordering Physician: Stanley Lambert * Referring Physician: Self, Referred * Performed By: Abhishek Patel RDCS * * Reason For Study: Acute saddle PE, nonsustained vtach * BSA: 1.8 m2 * Normal biventricular systolic function. * Normal chamber dimensions. * Left ventricular diastolic dysfunction. * Mild tricuspid and pulmonic regurgitation. * Moderate pulmonary hypertension. * Trace mitral regurgitation. * -- Conclusions -- * Aortic valve sclerosis mild, without significant aortic valvular stenosis. Procedure Details * A complete two-dimensional transthoracic echocardiogram was performed (2D, M-mode, Doppler and color flow Doppler). * The study was technically adequate. Left Ventricle * The left ventricle is normal in size. * There is normal left ventricular wall thickness. * Left ventricular systolic function is normal. * Ejection Fraction = 65-70%. * A full diastolic examination was done with clinical findings of Class I diastolic dysfunction. * The left ventricular wall motion is normal. Right Ventricle * The right ventricle is normal in size and function. * The right ventricular systolic function is normal as assessed by tricuspid annular plane systolic excursion (TAPSE) (normal >1.5 cm). Atria * The left atrial size is normal. * Right atrial size is normal. * No ASD detected; PFO is not assessed. Mitral Valve * There is mild mitral annular calcification. * There is no mitral valve stenosis. * There is trace mitral regurgitation. Tricuspid Valve * The tricuspid valve is not well visualized, but is grossly normal. * There is no tricuspid stenosis. * There is mild tricuspid regurgitation. * Right ventricular systolic pressure is elevated at 50-60mmHg. Aortic Valve * The aortic valve is trileaflet. * The aortic valve opens well. * Aortic valve sclerosis mild, without significant aortic valvular stenosis. * No aortic regurgitation is present. Pulmonic Valve * The pulmonary valve is inadequately visualized, but the Doppler data is adequate for interpretation. * Pulmonic stenosis is absent. * Mild pulmonic valvular regurgitation. Great Vessels * The aortic root is normal size. * The inferior vena cava is mildly dilated. MMode 2D Measurements and Calculations IVSd 0.89 cm IVSs 1.4 cm LVIDd 4.2 cm LVIDs 2.5 cm LVPWd 0.89 cm LVPWs 1.2 cm IVS/LVPW 1.0 FS 39.9 % EDV(Teich) 80.2 ml ESV(Teich) 23.3 ml EF(Teich) 70.9 % EDV(cubed) 76.0 ml ESV(cubed) 16.5 ml EF(cubed) 78.3 % % IVS thick 61.2 % % LVPW thick 33.8 % LV mass(C)d 117.8 grams LV mass(C)dI 66.8 grams/m\S\2 LV mass(C)s 101.2 grams LV mass(C)sI 57.3 grams/m\S\2 SV(Teich) 56.8 ml SI(Teich) 32.2 ml/m\S\2 SV(cubed) 59.5 ml SI(cubed) 33.7 ml/m\S\2 EPSS 0.65 cm Ao root diam 2.9 cm Ao root area 6.6 cm\S\2 ACS 1.4 cm LA dimension 3.7 cm LA/Ao 1.3 LVOT diam 1.9 cm LVOT area 2.8 cm\S\2 LVAd ap4 13.9 cm\S\2 LVLd ap4 6.5 cm EDV(MOD-sp4) 25.0 ml LVAs ap4 8.1 cm\S\2 LVLs ap4 5.4 cm ESV(MOD-sp4) 10.0 ml EF(MOD-sp4) 60.0 % LVAd ap2 16.3 cm\S\2 LVLd ap2 6.4 cm EDV(MOD-sp2) 35.0 ml LVAs ap2 9.1 cm\S\2 LVLs ap2 5.3 cm ESV(MOD-sp2) 13.0 ml EF(MOD-sp2) 62.9 % SV(MOD-sp4) 15.0 ml SI(MOD-sp4) 8.5 ml/m\S\2 SV(MOD-sp2) 22.0 ml SI(MOD-sp2) 12.5 ml/m\S\2 Doppler Measurements and Calculations MV E max marlon 69.1 cm/sec MV A max marlon 96.3 cm/sec MV E/A 0.72 MV dec time 0.30 sec Ao V2 max 178.4 cm/sec Ao max PG 12.7 mmHg Ao max PG (full) 6.9 mmHg YRN(V,A) 1.9 cm\S\2 YRN(V,D) 1.9 cm\S\2 LV V1 max PG 5.8 mmHg LV V1 max 120.3 cm/sec PA V2 max 106.7 cm/sec PA max PG 4.6 mmHg PI end-d marlon 112.5 cm/sec TR max marlon 337.5 cm/sec
[2016-07-01] MEDS: WARFARIN SOD 5 MG TAB PO SCH (17:05)
--- NOTE | 2016-07-01 23:42 | Progress Note ---
Subjective Date of Service: Jul 01, 2016. Subjective Pt evaluation today including: conversation w/ patient, conversation w/ family , physical exam, chart review, lab review, review of studies, review of inpatient medication list Voiding: no voiding problems, no incontinence Pt is seen and examined by me at the bedside. Pt was accompanied with her and daughter.Pt still have some right sided lower rib pain, but much better than before. Pin is more likely on deep breathing. Pt denies Cp, SOB, dizziness, palpitation and LOC. Pt denies any abnormal bleeding on Coumadin.Pt has good appetite and sleep.Pt denies fever, chills, rigors and sweats. Problem List Medical Problems: (1) Hypertension Status: Acute Review of Systems All Other Systems: Reviewed and Negative Objective Vital Signs Date Time Temp Pulse Resp B/P Pulse Ox O2 Delivery O2 Flow Rate FiO2 07/01/16 20:04 91 Room Air 07/01/16 19:45 36.8 75 18 127/69 93 Room Air 07/01/16 16:18 91 Room Air 07/01/16 15:34 36.5 77 18 118/70 94 Room Air 07/01/16 12:14 91 Room Air 07/01/16 11:47 36.8 69 18 115/69 91 Room Air 07/01/16 08:22 36.5 80 18 123/70 93 Room Air 07/01/16 08:01 91 Room Air 07/01/16 04:00 36.8 77 16 124/65 91 Room Air 07/01/16 04:00 Room Air 07/01/16 00:00 Room Air 06/30/16 23:47 36.8 76 18 123/66 91 Room Air Physical Exam General Appearance: WD/WN, no apparent distress Eyes: normal inspection, PERRL Neck: supple, no adenopathy, thyroid normal Respiratory/Chest: lungs clear, normal breath sounds, no respiratory distress, no accessory muscle use, + pertinent finding (right sided lower rib pain) Cardiovascular: regular rate, rhythm, no edema, no JVD, no murmur Abdomen: non tender, soft Extremities: non-tender, normal inspection, no pedal edema, + calf tenderness ( right lower leg calf tenderness on deep palpation) Neurologic/Psychiatric: no motor/sensory deficits, alert, normal mood/affect, oriented x 3 Lymphatic: no adenopathy Laboratory Results Last 24 Hours Test 07/01/16 04:30 White Blood Count 9.77 K/uL Red Blood Count 3.88 M/uL Hemoglobin 13.1 g/dL Hematocrit 36.3 % Mean Corpuscular Volume 93.6 fL Mean Corpuscular Hemoglobin 33.8 pg Mean Corpuscular Hemoglobin Concent 36.1 g/dl RDW Standard Deviation 44.9 fL RDW Coefficient of Variation 13.0 % Platelet Count 205 K/uL Mean Platelet Volume 10.3 fL Prothrombin Time 10.8 SECONDS Prothromb Time International Ratio 1.0 Activated Partial Thromboplast Time 65.5 SECONDS Partial Thromboplastin Ratio 2.5 Sodium Level 132 mmol/L Potassium Level 3.9 mmol/L Chloride Level 99 mmol/L Carbon Dioxide Level 25 mmol/L Anion Gap 8.0 mmol/L Blood Urea Nitrogen 11 mg/dl Creatinine 0.79 mg/dl Est Creatinine Clear Calc Drug Dose 52.3 ml/min Estimated GFR () 81.4 Estimated GFR (Non- 70.2 BUN/Creatinine Ratio 14.1 Random Glucose 121 mg/dl Calcium Level 8.3 mg/dl Total Bilirubin 0.8 mg/dl Direct Bilirubin 0.3 mg/dl Aspartate Amino Transf (AST/SGOT) 59 U/L Alanine Aminotransferase (ALT/SGPT) 78 U/L Alkaline Phosphatase 167 U/L Total Protein 6.1 gm/dl Albumin 2.3 gm/dl Assessment and Plan A/P: 1. RLE DVT (extensive) with PE (saddle/extensive) - unprovoked; greatest risk factor relative immobility - Cont Coumadin, INR is therapeutic 2. abnormal LFTs, possibly 2nd to right heart strain from #1, however slowly trended downward. 3. chronic colitis on entocort 4. HTN. well controlled, cont meds 5. non-sustained V-tach, no acute events overnight. 6. Elevated Pulmonary artery pressure need outpatient work up for pulmonary HTN - Echo reviewed, EF 60-65%. Continued [facility] stay due to: other (abnormal lab) Discharge planning: home
[2016-07-02] VITALS (8 sets, daily range): BP systolic 118–147; BP diastolic 62–81; PULSE 64–94; TEMP 36.4–37; O2SAT 91–94
[2016-07-02] MEDS: SODIUM CHLORIDE 0.9% 1000ML 1,000 ML IV SCH ×2 (00:06→12:37)
[2016-07-02 05:06] LABS: PARTIAL THROMBOPLASTIN RATIO 2.8; PROTHROMBIN TIME (PATIENT) 11.2 SECONDS (9.0-12.0)
[2016-07-02 05:07] LABS: BUN/CREATININE RATIO 8.9 (10-20); CALCIUM 8.3 mg/dl (8.5-10.1); CREATININE 0.71 mg/dl (0.60-1.20); POTASSIUM 3.7 mmol/L (3.5-5.1)
[2016-07-02] MEDS: HEPARIN 25,000 UNIT/500ML D5W 500 ML IV PRN ×3 (05:28→23:25)
[2016-07-02] MEDS: SPIRONOLACTONE 25 MG TAB PO SCH (07:15)
[2016-07-02] MEDS: BUDESONIDE EC 3 MG CAP PO SCH (07:15)
[2016-07-02] MEDS: METOPROLOL TARTRATE 25 MG TAB PO SCH (07:15)
[2016-07-02] MEDS: DILTIAZEM HCL (TIAzac) 180 MG CAPCR PO SCH (07:16)
[2016-07-02] MEDS: AUTOLOGOUS SERUM OP SCH ×4 (07:20→20:02)
[2016-07-02] MEDS ORDERED: NURSING VERBAL MED ORDER ONE (10:15)
[2016-07-02 11:56] LABS: PARTIAL THROMBOPLASTIN RATIO 2.3
--- NOTE | 2016-07-02 15:00 | Progress Note ---
Subjective Date of Service: Jul 02, 2016. Subjective Pt evaluation today including: conversation w/ patient, physical exam, chart review, lab review, review of studies, conversation w/ quality compliance consultant, review of inpatient medication list Pain: no pain reported PO Intake: excellent Voiding: no voiding problems, no incontinence Pt is seen and examined by. Pt denies Cp, Sob, dizziness and LOC. Pt denies abdominal pain, nausea, vomiting, and diarrhea. Excellent appetite and sleep. Pt right side rib pain improved on deep inspiration. Problem List Medical Problems: (1) Hypertension Status: Acute Review of Systems All Other Systems: Reviewed and Negative Objective Vital Signs Date Time Temp Pulse Resp B/P Pulse Ox O2 Delivery O2 Flow Rate FiO2 07/02/16 12:38 91 Room Air 07/02/16 12:00 37.0 71 18 126/74 94 Room Air 07/02/16 08:01 91 Room Air 07/02/16 07:38 36.4 94 18 147/81 94 Room Air 07/02/16 04:00 36.5 91 18 133/76 93 Room Air 07/02/16 04:00 Room Air 07/02/16 00:00 Room Air 07/02/16 00:00 36.8 74 18 133/69 93 Room Air 07/01/16 20:04 91 Room Air 07/01/16 19:45 36.8 75 18 127/69 93 Room Air 07/01/16 16:18 91 Room Air 07/01/16 15:34 36.5 77 18 118/70 94 Room Air Physical Exam General Appearance: WD/WN, no apparent distress Neck: supple, no JVD Respiratory/Chest: lungs clear, normal breath sounds, no respiratory distress Cardiovascular: regular rate, rhythm, no edema, no JVD, no murmur Abdomen: normal bowel sounds, non tender, soft, no organomegaly Extremities: normal range of motion, non-tender, normal inspection, no pedal edema Neurologic/Psychiatric: homemaking rehabilitation consultant II-XII nml as tested, normal mood/affect, oriented x 3 Skin: no rash Lymphatic: no adenopathy Laboratory Results Last 24 Hours Test 07/02/16 04:30 07/02/16 04:40 07/02/16 11:27 Prothrombin Time 11.2 SECONDS Prothromb Time International Ratio 1.0 Activated Partial Thromboplast Time 71.6 SECONDS 59.0 SECONDS Partial Thromboplastin Ratio 2.8 2.3 Sodium Level 135 mmol/L Potassium Level 3.7 mmol/L Chloride Level 102 mmol/L Carbon Dioxide Level 26 mmol/L Anion Gap 7.0 mmol/L Blood Urea Nitrogen 6 mg/dl Creatinine 0.71 mg/dl Est Creatinine Clear Calc Drug Dose 58.1 ml/min Estimated GFR () 92.6 Estimated GFR (Non- 79.9 BUN/Creatinine Ratio 8.9 Random Glucose 112 mg/dl Calcium Level 8.3 mg/dl Assessment and Plan A/P: 1. RLE DVT (extensive) with PE (saddle/extensive) - unprovoked; greatest risk factor relative immobility - Cont Coumadin, INR is still subtherapeutic INR1.0, will increase to Coumadin 7.5mg tonight and repeat INR in am. - We will cont heparin for now. 2. abnormal LFTs, possibly 2nd to right heart strain from #1, however slowly trended downward. - will repeat LFt,s in am. 3. chronic colitis on entocort 4. HTN. well controlled, cont meds 5. non-sustained V-tach, no acute events overnight. 6. Elevated Pulmonary artery pressure need outpatient work up for pulmonary HTN - Echo reviewed, EF 60-65%. Full code Continued [facility] stay due to: multiple IV medications needed, other (abnormal lab ) Discharge planning: home
[2016-07-02] MEDS ORDERED: WARFARIN SOD 2.5 MG TAB PO ONE (16:00)
[2016-07-02] MEDS: WARFARIN SOD 5 MG TAB PO SCH (19:57)
[2016-07-03 00:51] VITALS: BP 130/80; PULSE 78; TEMP 36.7; O2SAT 95
[2016-07-03] MEDS: SODIUM CHLORIDE 0.9% 1000ML 1,000 ML IV SCH (01:49)
[2016-07-03 04:57] LABS: MEAN CELL VOLUME 93.5 fL (80-100); MEAN PLATELET VOLUME 10.1 fL (7.4-10.4); PLATELET COUNT 202 K/uL (130-400); RED BLOOD COUNT 3.53 M/uL (4.2-5.4); WHITE BLOOD COUNT 7.79 K/uL (4.8-10.8)
[2016-07-03 05:06] LABS: MEAN CORPUSCULAR HGB CONC 36.4 g/dl (32-36)
[2016-07-03 05:21] LABS: INR 1.2 (0.9-1.1); PARTIAL THROMBOPLASTIN RATIO 2.5; PROTHROMBIN TIME (PATIENT) 13.4 SECONDS (9.0-12.0)
[2016-07-03 05:31] LABS: BUN/CREATININE RATIO 7.9 (10-20); CALCIUM 8.2 mg/dl (8.5-10.1); CREATININE 0.73 mg/dl (0.60-1.20); POTASSIUM 3.7 mmol/L (3.5-5.1)
[2016-07-03 07:48] VITALS: BP 157/89; PULSE 85; TEMP 36.5; O2SAT 93
[2016-07-03] MEDS: BUDESONIDE EC 3 MG CAP PO SCH (07:55)
[2016-07-03] MEDS: DILTIAZEM HCL (TIAzac) 180 MG CAPCR PO SCH (07:55)
[2016-07-03] MEDS: SPIRONOLACTONE 25 MG TAB PO SCH (07:55)
[2016-07-03] MEDS: AUTOLOGOUS SERUM OP SCH (07:55)
[2016-07-03] MEDS: METOPROLOL TARTRATE 25 MG TAB PO SCH (07:55)
[2016-07-03] MEDS ORDERED: APIX1TAB3 PO (09:49)
--- NOTE | 2016-07-03 09:50 | Discharge Instructions ---
Discharge Instructions Admission Admission Date: Jun 29, 2016 at 17:54 Admission Diagnosis: Dvt, Pulmonary Embolism. Care Plan - Goal(s): Decrease discomfort Care Plan - Instructions: Recommended Home Diet: AHA Phase I (2gmNa/LoCho) VTE Core Measure Inpt VTE Proph given/why not?: Other Anticoagulation [place] Recommendations: Call your doctor if: * Temperature above 101 degrees * Pain not relieved by pain medicine ordered * There is increased drainage or redness from any incision * You have any unanswered questions or concerns. Your Doctors Instructions noted above were prepared by provider Pamela Ruff.
[2016-07-03 10:20] VITALS: BP 157/89; PULSE 85; TEMP 36.5; O2SAT 93
--- NOTE | 2016-07-03 17:30 | Discharge Summary ---
Discharge Summary Date of Service Jul 03, 2016. Discharge Summary Admission Date: Jun 29, 2016 at 17:54 Discharge Date: Jul 03, 2016 Discharge Disposition: Home Principal Diagnosis: DVT/PE Problems/Secondary Diagnoses: 1. RLE DVT (extensive) with PE (saddle/extensive) 2. abnormal LFTs 3. chronic colitis on entocort 4. HTN. well controlled, cont meds 5. non-sustained V-tach, no acute events overnight. 6. Elevated Pulmonary artery pressure need outpatient work up for pulmonary HTN - Echo reviewed, EF 60-65%. Immunizations: Have You Had Influenza Vaccine: Yes History of Tetanus Vaccine?: Yes History of Pneumococcal: Yes History of Hepatitis B Vaccine: No Medication Reconciliation New Medications: Apixaban (Eliquis) 5 Mg Tab 5 MG PO BID for 30 Days, #60 TAB start after one week Apixaban (Eliquis) 5 Mg Tab 10 MG PO BID for 7 Days, #28 TAB Continued Medications: Budesonide (Budesonide) 3 Mg Cap 1 TAB PO DAILY Diltiazem Hcl Ext Rel (Tiazac) 360 Mg Capcr 360 MG PO DAILY, CAP Metoprolol Tartrate (Lopressor) (Lopressor) 25 Mg Tab 12.5 MG PO DAILY, TAB Spironolactone (Spironolactone) 25 Mg Tab 25 MG PO DAILY Discharge Exam Review of Systems: Constitutional: No chills, No fatigue, No fever, No problem reported, No sweats, No weakness, No weight loss Eyes: No diplopia, No discharge, No eye pain, No problem reported, No redness, No worsening of vision ENT: No dental problems, No hearing loss, No nasal symptoms, No problem reported, No sore throat, No tinnitus, No trouble swallowing, No unusual epistaxis Respiratory: No cough, No dyspnea at rest, No dyspnea on exertion, No hemoptysis, No problem reported, No shortness of breath, No sputum, No wheezing Cardiovascular: No PND, No chest pain, No claudication, No edema, No orthopnea, No palpitations, No problem reported Abdomen: No GI bleeding, No constipation, No diarrhea, No nausea, No pain, No problem reported, No vomiting Musculoskeletal: No calf pain, No joint pain, No muscle pain, No problem reported, No swelling Genitourinary - Female: No dysmenorrhea, No dysuria, No hematuria, No menorrhagia, No metrorrhagia, No , No problem reported, No rash, No urinary frequency, No urinary incontinence, No urinary retention, No urinary urgency, No vaginal bleeding, No vaginal discharge, No vaginal itching, No vulvodynia Neurologic: No balance problems, No memory loss, No numbness/tingling, No paralysis, No problem reported, No vertigo, No weakness Psychiatric: No anhedonism, No anxiety, No depression symptoms, No insomnia , No problem reported, No substance abuse Endocrine: No excessive thirst, No excessive urination, No fatigue, No problem reported Hematologic / Lymphatic: No abnormal bleeding/bruising, No clotting problems , No night sweats, No problem reported, No swollen lymph nodes Integumentary: No bleeding, No color change, No itch, No new/changing skin lesions, No problem reported, No rash Physical Exam: General Appearance: WD/WN, no apparent distress Eyes: normal inspection, EOMI ENT: normal ENT inspection, hearing grossly normal, TMs normal Neck: supple, no adenopathy, thyroid normal, no JVD Respiratory/Chest: chest non-tender, lungs clear, normal breath sounds, no respiratory distress, no accessory muscle use Cardiovascular: regular rate, rhythm, no edema, no gallop, no JVD, no murmur Abdomen / GI: normal bowel sounds, non tender, soft, no organomegaly, no pulsatile mass, normal rectal exam, occult blood negative Extremities: normal inspection, no calf tenderness, normal capillary refill , no pedal edema, normal range of motion Neurologic/Psychiatric: piccoloist II-XII nml as tested, no motor/sensory deficits , alert, normal mood/affect, normal reflexes, oriented x 3 Skin: normal color, warm/dry, no rash Hospital Course This is a 81 y/o female with PMHx of HTN presented to the ED complaining of right sided chest pain X3days. Denied any recent trip or prolong immobility. Denies any SOB, calf tenderness, weakness, numbness/tingling of the extremities , nausea, vomiting, or abdominal pain. Denies any previous hx of blood clots. She used to smoke but quit about 40yrs ago. She drinks socially. US lower ext and CTA revealed RLE extensive DVT and extensive PE. noted to have pulmonary HTN, slight elevation of LFTS and an episaode of NSVT likely all related to her PE started on heparin drip and improved slowly. initially was planed to have coumadin but then it was found that her copay on Eliquis is only 1 dollar, she is not a fall risk, last fall was mechanical and was 2 years ago agreed to have mamogram and pap smear with further cancer screening as an OP she had a recent colonoscopy that showed mild chronic colitis stable for discharge today Total Time Spent: Greater than 30 minutes This includes examination of the patient, discharge planning, medication reconciliation, and communication with other providers. Discharge Instructions Please refer to the electronic Patient Visit Report (Discharge Instructions) for additional information.
[2016-07-04 15:40] LABS: ANTITHROMBINIII ACTIVITY** 120 % activity (80-120); B2 GLYCOPROTEIN IGA <9 SAU (<=20); B2 GLYCOPROTEIN IGG <9 SGU (<=20); B2 GLYCOPROTEIN IGM <9 SMU (<=20); LUPUS ANTICOAGULANT** TC36573X Positive (Negative); PROTEIN C ACTIVITY** TC 1777X 141 % (70-180); PROTEIN S ACT(FUNCT)**1779X 108 % (60-140)
== END 2016-07-03 11:45 | disposition home or self-care (01) | DRG 299 ==
LOC: ENRESERVTM → ENRESERVDT → C.EDB 12:23 → C.2E 17:54 → C.MS4W 07-02 15:57
PROVIDERS: ADMIT Hospitalist; ATTEND Internal Medicine
DX: I82.401 Acute embolism and thrombosis of unspecified deep veins of right lower extremity (principal); I26.92 Saddle embolus of pulmonary artery without acute cor pulmonale; E87.1 Hypo-osmolality and hyponatremia; I47.2 Ventricular tachycardia; J90 Pleural effusion, not elsewhere classified; R94.5 Abnormal results of liver function studies; I27.2 Other secondary pulmonary hypertension; I10 Essential (primary) hypertension; K52.9 Noninfective gastroenteritis and colitis, unspecified; R63.4 Abnormal weight loss; R60.0 Localized edema; R07.9 Chest pain, unspecified; M19.90 Unspecified osteoarthritis, unspecified site; I51.9 Heart disease, unspecified; R79.1 Abnormal coagulation profile; Z96.649 Presence of unspecified artificial hip joint; Z66 Do not resuscitate; Z87.891 Personal history of nicotine dependence; Z79.52 Long term (current) use of systemic steroids; Z79.899 Other long term (current) drug therapy

== ENCOUNTER → 2016-07-17 | Outpatient (CLI) | payer OTHER, BC ==
[~2016-07-17] MED LIST changes: +APIX1TAB3 PO; +BUDE0.09 PO; -CARB0.5D28 OPB; +DILT-119 PO; +ESCI10TA17 PO; -GLUC500C4 PO; -LXP10 PO; +METO25TA56 PO; -MISCCAP80 PO; -OMEG10007 PO; +OPTIRAY 320 IV PRN; -PANT40TA PO; +PRAV20TA PO; -VALS-10 PO; +VALS320T2 PO
--- NOTE | 2016-07-17 14:02 | DIAGNOSTIC IMAGING REPORT ---
CT SCAN OF THE ABDOMEN AND PELVIS COMBO PANCREAS PROTOCOL CLINICAL HISTORY: Generalized abdominal pain. Hypercoagulable state. COMPARISON STUDY: Abdominal CT dated 06/29/2013. Chest CT dated 06/29/2016. TECHNIQUE: Before and following the IV administration of 93 cc of Optiray 320, CT scan of the abdomen and pelvis is performed from the lung bases to the proximal femora. The abdominal CT scan is performed utilizing the pancreas protocol. Images are reviewed in the axial, sagittal, and coronal planes. IV contrast was administered without complication. Automated dose control exposure was utilized. CT DOSE: 1278.84 mGycm FINDINGS: Lung bases: The heart is normal in size and without pericardial effusion. The coronary arteries are densely calcified. There is a large fat-containing Bochdalek hernia at the left lung base. Emphysema is observed. There is no airspace consolidation or pleural effusion. Linear atelectasis versus scarring is seen along the right major fissure, possibly related to pulmonary infarct. There is a small hiatal hernia. Segmental and subsegmental pulmonary emboli are present in the right lower lobe. These are best seen on axial image #47 of the arterial phase series. Liver: The contrast-enhanced liver is normal in size, contour, and attenuation. There is no intrahepatic biliary ductal dilatation. 11 mm cyst is present in the right lobe on image #101. Hepatic and portal vasculature: Hepatic arterial anatomy is conventional. The hepatic veins, portal veins, superior mesenteric vein, and splenic vein are patent. Gallbladder: Unremarkable. Spleen: Normal in size and attenuation. There are numerous calcified splenic granulomas. Pancreas: Unremarkable. Adrenal glands: Unremarkable. Kidneys: There is markedly asymmetric cortical atrophy of the left kidney as compared to the right. No hydronephrosis is seen. No renal calculi are identified on the unenhanced series. The kidneys enhance symmetrically. A subcentimeter cortical hypodensity in the upper pole of left kidney likely represents a cyst but is too small for definitive characterization. Abdominal vasculature: The abdominal aorta is normal in course and caliber noting advanced atherosclerotic calcification. 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 Bowel: The small bowel and colon are normal in course and caliber. The appendix is not identified and reported surgically absent. Peritoneum: There is no intraperitoneal free air or abdominal ascites. There is a small fat-containing umbilical hernia. Lymphadenopathy: None. Pelvic viscera: Evaluation of the pelvis is degraded by streak artifact from a right hip arthroplasty. The bladder is normal as imaged. The uterus is surgically absent. No adnexal lesion is seen. Pelvic floor prolapse is suggested. Skeletal structures: The skeletal structures are osteopenic. There is moderate to advanced lumbosacral spondylosis. No lytic or blastic lesions are seen. A right hip arthroplasty is in place. IMPRESSION: 1. There are no acute infectious or inflammatory findings in the abdomen or pelvis. 2. Segmental and subsegmental pulmonary emboli are present within branches of the right lower lobe pulmonary artery. This appears diminished in size from the 06/29/[address] scan. 3. Unremarkable assessment of the pancreas. 4. There is markedly asymmetric cortical atrophy of the left kidney as compared to the right. 5. Additional findings as above. Electronically signed by: New Smith M.D. 07/17/2016 2:00 PM Dictated Date/Time: 07/17/2016 1:50 PM
== END | disposition home or self-care (01) ==
LOC: C.CTS 12:23
PROVIDERS: ATTEND Internal Medicine Gastroenterology
DX: R19.7 Diarrhea, unspecified (principal); I26.99 Other pulmonary embolism without acute cor pulmonale; N26.1 Atrophy of kidney (terminal)

== ENCOUNTER → 2017-01-23 | Outpatient (CLI) | payer OTHER, BC ==
[~2017-01-23] MED LIST changes: -APIX1TAB3 PO; -ESCI10TA17 PO; -OPTIRAY 320 IV PRN; -PRAV20TA PO; -VALS320T2 PO
[2017-01-25 23:31] LABS: DRVVT MIX INTERPRETAION Not Indicated; LAC PTT SCREEN 39 sec (<=40)
== END | disposition home or self-care (01) ==
LOC: C.LAB1850 10:43
PROVIDERS: ATTEND Internal Medicine Hematology & Oncology
DX: I82.401 Acute embolism and thrombosis of unspecified deep veins of right lower extremity (principal); I26.02 Saddle embolus of pulmonary artery with acute cor pulmonale; D68.51 Activated protein C resistance; D68.62 Lupus anticoagulant syndrome

== ENCOUNTER → 2017-07-26 | Outpatient (CLI) | payer OTHER, BC ==
[~2017-07-26] MED LIST changes: +APIX1TAB3 PO; -BUDE0.09 PO; -DILT-119 PO; +ESCI10TA17 PO; +PRAV20TA PO; +VALS320T2 PO
[2017-07-26 15:57] LABS: BASO % 0.4 %; BASO ABS # 0.03 K/uL (0-0.2); EOS % 4.4 %; EOS ABS # 0.32 K/uL (0-0.5); HEMATOCRIT 40.3 % (37-47); HEMOGLOBIN 14.6 g/dL (12.0-16.0); IG# 0.02 K/uL (0.00-0.02); LYMPH ABS # 1.23 K/uL (1.2-3.4); MEAN CELL VOLUME 97.8 fL (80-100); MEAN CORPUSCULAR HEMOGLOBIN 35.4 pg (25-34); MEAN CORPUSCULAR HGB CONC 36.2 g/dl (32-36); MEAN PLATELET VOLUME 10.2 fL (7.4-10.4); MONO % 13.6 %; MONO ABS # 0.98 K/uL (0.11-0.59); NEUT % 64.3 %; NEUT ABS # 4.64 K/uL (1.4-6.5); PLATELET COUNT 257 K/uL (130-400); RED CELL DISTRIBUTION WIDTH CV 13.8 % (11.5-14.5); RED CELL DISTRIBUTION WIDTH SD 49.1 fL (36.4-46.3); WHITE BLOOD COUNT 7.22 K/uL (4.8-10.8)
[2017-07-26 16:25] LABS: ALBUMIN 3.8 gm/dl (3.4-5.0); ALT/SGPT 21 U/L (12-78); AST/SGOT 19 U/L (15-37); BLOOD UREA NITROGEN 11 mg/dl (7-18); CALCIUM 9.2 mg/dl (8.5-10.1); CARBON DIOXIDE 27 mmol/L (21-32); CREATININE 1.17 mg/dl (0.60-1.20); GLUCOSE 111 mg/dl (70-99); POTASSIUM 4.1 mmol/L (3.5-5.1); SODIUM 127 mmol/L (136-145)
[2017-07-26 16:28] LABS: ALKALINE PHOSPHATASE 83 U/L (45-117)
== END | disposition home or self-care (01) ==
LOC: C.LAB1850 15:31
PROVIDERS: ATTEND Internal Medicine Hematology & Oncology
DX: D68.62 Lupus anticoagulant syndrome (principal)

== ENCOUNTER → 2017-11-02 | Outpatient (CLI) | payer OTHER, BC ==
[~2017-11-02] MED LIST changes: +BUDE0.09 PO; -ESCI10TA17 PO; +ESCI1TAB10 PO; +MESA4ENE2 PO; +SPIR25TA6 PO; -SPR25 PO
--- NOTE | 2017-11-02 08:43 | DIAGNOSTIC IMAGING REPORT ---
R PELVIS UNILATERAL HIP 1 VIEW CLINICAL HISTORY: RIGHT HIP PAIN COMPARISON STUDY: Pelvis 12/10/2014. FINDINGS: No fracture or dislocation within the pelvis or hips. Mild left hip osteoarthritis, unchanged. There is a right total hip arthroplasty. The hardware is intact. No abnormal periprosthetic lucency. Mild vascular calcifications. IMPRESSION: 1. Right total hip arthroplasty. No evidence for hardware complication. 2. No fracture or dislocation within the pelvis or hips. Electronically signed by: Neftali Blackman M.D. 11/02/2017 8:41 AM Dictated Date/Time: 11/02/2017 8:39 AM
== END | disposition home or self-care (01) ==
LOC: C.RDSM 12:47
PROVIDERS: ATTEND Physician Assistant
DX: T84.84XA Pain due to internal orthopedic prosthetic devices, implants and grafts, initial encounter (principal); Y83.1 Surgical operation with implant of artificial internal device as the cause of abnormal reaction of the patient, or of later complication, without mention of misadventure at the time of the procedure; Z96.641 Presence of right artificial hip joint

== ENCOUNTER 2019-04-14 14:38 | Inpatient (IN) ==
[2019-04-14] MEDS ORDERED: SODIUM CHLORIDE 0.9% 500 ML IV SCH (16:00)
[2019-04-14 16:26] LABS: Basophils # (auto) 0.01 K/uL (0-0.2); Basophils % (auto) 0.1 %; Hematocrit (blood only) 34.1 % (37-47); Hemoglobin 11.7 g/dL (12.0-16.0); Immature Granulocytes # (auto) 0.02 K/uL (0.00-0.02); Immature Granulocytes % (auto) 0.3 %; Lymphocytes # (auto) 1.08 K/uL (1.2-3.4); Lymphocytes % (auto) 14.1 %; Mean Corpuscular Hemoglobin 35.2 pg (25-34); Mean Corpuscular Hgb Conc 34.3 g/dL (32-36); Mean Corpuscular Volume 102.7 fL (80-100); Mean Platelet Volume 11.3 fL (7.4-10.4); Monocytes # (auto) 1.06 K/uL (0.11-0.59); Monocytes % (auto) 13.8 %; Neutrophils # (auto) 5.49 K/uL (1.4-6.5); Neutrophils % (auto) 71.7 %; Platelet Count 191 K/uL (130-400); RDW Coefficient of Variation 13.4 % (11.5-14.5); RDW Standard Deviation 49.8 fL (36.4-46.3); Red Blood Count 3.32 M/uL (4.2-5.4); White Blood Count 7.66 K/uL (4.8-10.8)
--- NOTE | 2019-04-14 16:30 | XRay Report ---
XR chest 1V portable CLINICAL HISTORY: Chest Pain dyspnea COMPARISON STUDY: 12/02/2018 FINDINGS: The bones soft tissues and hemidiaphragms are normal. The cardiomediastinal silhouette is n ormal. The lungs are clear. The pulmonary vasculature is normal. IMPRESSION: Mild cardiomegaly. Otherwise negative study. ACT 112: Negative or not required by law. The above report was generated using voice recognition software. It may contain grammatical, syntax or spelling errors. Electronically signed by: Dudley Payton M.D. 04/14/2019 4:29 PM
[2019-04-14 16:35] LABS: iSTAT Creatinine 1.3 mg/dl (0.6-1.3); iSTAT Hemoglobin 11.2 g/dl (12.0-16.0); iSTAT Ionized Calcium 1.21 mmol/l (1.12-1.32); iSTAT Potassium 4.3 mEq/L (3.3-5.0)
[2019-04-14 16:36] LABS: INR 1.1 (0.9-1.1); Prothrombin Time 10.9 Seconds (9.0-12.0)
[2019-04-14 16:44] LABS: Alanine Aminotransferase 14 U/L (12-78); Albumin Level 3.3 gm/dl (3.4-5.0); Aspartate Aminotransferase 15 U/L (15-37); BUN Creatinine Ratio 20.6 (10-20); Blood Urea Nitrogen 26 mg/dl (7-18); Calcium 9.2 mg/dl (8.5-10.1); Carbon Dioxide 25 mmol/L (21-32); Chloride 105 mmol/L (98-107); Est GFR (African American) 45.3; Est GFR (Non-African American) 39.1; Glucose 107 mg/dl (70-99); Lipase 296 U/L (73-393); Magnesium 1.8 mg/dl (1.8-2.4); Potassium 4.3 mmol/L (3.5-5.1); Sodium 137 mmol/L (136-145)
[2019-04-14 16:49] LABS: Albumin Globulin Ratio 0.9 (0.9-2); Alkaline Phosphatase 79 U/L (45-117); Bilirubin,Total 1.3 mg/dl (0.2-1); Globulin 3.5 gm/dl (2.5-4.0); Phosphorus 3.5 mg/dl (2.5-4.9); Total Protein 6.8 gm/dl (6.4-8.2); Troponin I < 0.015 ng/ml (0-0.045)
[2019-04-14] MEDS ORDERED: IOVERSOL 100ml IV PRN (16:55)
--- NOTE | 2019-04-14 17:12 | CT Scan Report ---
CT abd pelvis IV con only CLINICAL HISTORY: 84 years-old Female presenting with melena, h/o colitis. TECHNIQUE: Multidetector CT of the abdomen and pelvis was performed after the administration of intra venous contrast. IV contrast: 90 mL of Optiray 320. One or more dose lowering techniques were used co nsistent with the principles of ALARA (as low as reasonably achievable), including automatic exposure control, mA or kV adjustment to individual patient size, and/or use of iterative reconstruction. COMPARISON: 07/17/2016. CT DOSE (mGy.cm): The estimated cumulative dose is 423.10 mGy.cm. 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 Lung bases: Multichamber enlargement of the heart. Coronary artery calcification. Fat-containing Luanne dalek hernia on the left. No pericardial or pleural effusion. Centrilobular emphysema. Minimal depend ent changes likely atelectasis. Liver: Normal morphology. No liver lesion. Patent hepatic vasculature. Biliary: No intrahepatic or extrahepatic biliary ductal dilatation. Normal gallbladder. Pancreas: Normal. Spleen: Calcifications in the spleen suggest a history of granulomatous disease. Adrenal glands: Normal. Kidneys and ureters: Chronic severe atrophy of the left kidney as on prior exam. Normal appearance of the right kidney. Bladder: Normal. Pelvic organs: Uterus surgically absent. Bowel: Postsurgical changes of appendectomy or ileocecectomy. Postsurgical changes of the small bowel in the right mid abdomen. No bowel obstruction. Moderate sliding type hiatal hernia. Circumferential low density wall thickening of the gastric antrum. No perigastric inflammatory changes. Peritoneal cavity: No free fluid or intraperitoneal gas. Lymph nodes: No enlarged lymph nodes in the abdomen or pelvis. Vasculature: Densely calcified abdominal aorta as well as the origins of the major branch vessels. IV C patent. Abdominal wall: Abdominal wall laxity noted Musculoskeletal: Degenerative changes of the spine. Exaggerated endplate concavities suggest underlyi ng osteoporosis/osteopenia. Additionally new mild depression of the superior endplate of L2 suggests an interval compression fracture. This is also new since the prior CT from 10/05/2018. IMPRESSION: 1. Wall thickening of the gastric antrum could suggest a mild gastritis. No perigastric inflammatory change to suggest a more advanced gastritis. 2. Postsurgical changes of the bowel. No bowel obstruction. 3. Chronic severe left renal atrophy. 4. Mild compression fracture involving the superior endplate of L2 new since prior CT lumbar spine f rom September 2018. Correlate for point tenderness to assess for acuity. 5. Extensive atherosclerosis. 6. Emphysema. ACT 112: Negative or not required by law. Electronically signed by: True Cloud M.D. 04/14/2019 5:10 PM
[2019-04-14] MEDS ORDERED: PANTOprazole 80 MG in DEXTROSE 5% 100 ML IV ONE (17:30)
[2019-04-14] MEDS: PANTOprazole 40 MG in DEXTROSE 5% 100 ML IV SCH ×2 (18:18→23:36)
--- NOTE | 2019-04-14 18:56 | Emergency Department Note ---
Entered by Jany Arteaga acting as a scribe for Diaz Washington MD History of Present Illness General Chief complaint: Illness Stated complaint: BLACK STOOLS,NOT FEELING WELL Time Seen by Provider: 04/14/19 15:53 Source: patient History of Present Illness Onset (ago): day(s) 1 Location: abdomen (black stool) Pain Consistency: + other (persistent) Maximum Pain Intensity: 0 Associated symptoms: + weakness and + other (ositive black stool, tired. Negative congestion, diarrhea.); no cough, no fever/chills, no nausea/vomiting and no shortness of breath Treatments prior to arrival: none The patient is an 84 year old female presenting to the Emergency Department complaining of persistent black stool staring 1 day ago. The patient reports that she has noticed that her stool is a very dark color. She explains that she has had bowel movements today and yesterday both of which were dark. She notes that she feels very tired and weak and that this is not normal for her as she is usually active. She adds that she has a history of chronic diarrhea that she has been taking medications for. The patient reports that she has been regularly taking Eliquis for blood clots that were diagnosed 3 years ago. 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 She notes that she follows with GI. 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 The patient denies recent fevers, chills, cough, congestion, nausea, vomiting, diarrhea, shortness of breath and r ecently taking any Pepto-Bismol or iron supplements. Home Medications Home Medications Medication Instructions Recorded Confirmed Type budesonide 3 mg PO DAILY 02/17/18 04/14/19 History escitalopram oxalate 20 mg PO DAILY 02/17/18 04/14/19 History mesalamine 2.4 mg PO DAILY 02/17/18 04/14/19 History pravastatin 20 mg PO HS 02/17/18 04/14/19 History spironolactone 50 mg PO DAILY 02/17/18 04/14/19 History ergocalciferol (vitamin D2) 2,500 2,500 units PO DAILY 06/20/18 04/14/19 History unit capsule losartan 100 mg tablet 100 mg PO DAILY 07/08/18 04/14/19 History metoprolol tartrate 25 mg tablet 100 mg PO DAILY tab 11/27/18 04/14/19 History metoprolol tartrate 50 mg tablet 50 mg PO HS tab 11/27/18 04/14/19 History apixaban 5 mg tablet 5 mg PO BID #180 tab 01/13/19 04/14/19 Rx tramadol 50 mg tablet 50 mg PO .BID-TID #60 tab 01/27/19 04/14/19 Rx triamcinolone acetonide 0.1 % 1 appln TOP .COMPLEX gm 02/20/19 04/14/19 History topical cream gabapentin 300 mg capsule 300 mg PO TID #90 cap 03/17/19 04/14/19 Rx Allergies Allergy/AdvReac Type Severity Reaction Status Date / Time No Known Allergies Allergy Verified 04/14/19 16:18 Past Med/Surg History Medical History Anxiety (Chronic) Chronic diarrhea (Chronic) ON MESALAMINE Collagenous colitis Deep vein thrombosis (Resolved) R LEG Degenerative disc disease (Chronic) Factor 5 Leiden mutation, heterozygous (Chronic) Hypertension (Chronic) Lumbago (Chronic) Lumbar canal stenosis (Chronic) Multilevel On anticoagulant therapy (Chronic) ELIQUIS Osteoarthritis (Chronic) Pulmonary embolism (Resolved) BILT---REASON FOR ELIQUIS Right lumbar radiculitis (Chronic) Surgical History H/O bilateral cataract extraction (Resolved) History of blepharoplasty (Resolved) BILT History of colonoscopy (Resolved) History of tonsillectomy and adenoidectomy (Resolved) History of tooth extraction (Resolved) ALL UPPER TEETH History of total abdominal hysterectomy and bilateral salpingo-oophorectomy (Resolved) Status post right hip replacement (Resolved) Family History Other No significant family history Social History Preferred Language: Malagasy Communication Ability: Effective Visual Impairment: No Limitations 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: Normal 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: No Beliefs That Will Affect Care: None marital status: Current Living Situation: Spouse current occupational status: retired Other Information That Helps Us Care for You: No Feels Safe at Home: Yes Safety Concerns: Feels Safe At This Time Smoking Status: Former smoker Tobacco Type: cigarettes ; Cigarettes Per Day: last smoke 1975 ; Do You Dip or Chew Tobacco: No ; Second Hand Exposure: No ; Hx Alcohol Use: Yes Alcohol type: wine Hx Substance Use: Yes (medical roxana) substance use type: marijuana Substance Use Type Other:: medical marijuana card Last Used Substance Other:: two weeks ago Review of Systems See HPI for pertinent positives & negatives. and A total of 10 systems reviewed and were otherwise negative Physical Exam Vital Signs Vital Signs - 24 hr 04/14/19 14:43 04/14/19 16:27 04/14/19 18:10 Temperature 36.8 C Temperature Source Oral Pulse Rate 62 68 Pulse Rate [Apical] 58 L Pulse Rhythm Regular Pulse Rhythm [Apical] Regular Pulse Strength Normal Respiratory Rate 16 17 18 Respiratory Effort / Characteristics Non-Labored Non-Labored Spontaneous Respiratory Depth Normal Normal Respiratory Pattern Regular Regular Blood Pressure 130/65 Blood Pressure [Right Arm] 161/77 H Blood Pressure Mean 86 Blood Pressure Mean [Right Arm] 105 Blood Pressure Position Sitting Blood Pressure Position [Right Arm] Pulse Oximetry 97 94 Oxygen Delivery Method Room Air Room Air Sepsis Recent Fever Within 48 Hours No Sepsis Action Taken by Nursing No Action Required 04/14/19 18:17 Temperature Temperature Source Pulse Rate Pulse Rate [Apical] 66 Pulse Rhythm Pulse Rhythm [Apical] Pulse Strength Respiratory Rate 20 Respiratory Effort / Characteristics Respiratory Depth Respiratory Pattern Blood Pressure Blood Pressure [Right Arm] 171/97 H Blood Pressure Mean Blood Pressure Mean [Right Arm] 121 Blood Pressure Position Blood Pressure Position [Right Arm] Lying Pulse Oximetry 97 Oxygen Delivery Method Room Air Sepsis Recent Fever Within 48 Hours Sepsis Action Taken by Nursing GENERAL: Awake, alert, fatigued-appearing, in no distress HENT: Normocephalic, atraumatic. Oropharynx with dry mucous membranes and otherwise unremarkable. EYES: Normal conjunctiva. Sclera non-icteric. NECK: Supple. No nuchal rigidity. FROM. No JVD. RESPIRATORY: CTAB. CARDIAC: Regular rate, normal rhythm. Extremities warm and well perfused. Pulses equal. ABDOMEN: Soft, non-distended. No tenderness to palpation. No rebound or guarding. No masses. RECTAL: Scant black stool. Guaiac positive. No gross red blood. MUSCULOSKELETAL: Chest examination reveals no tenderness. The back is symmetr ical on inspection without obvious abnormality. There is no CVA tenderness to palpation. No joint edema. LOWER EXTREMITIES: Calves are equal size bilaterally and non-tender. No edema. No discoloration. NEURO: Normal sensorium. No sensory or motor deficits noted. SKIN: No rash or jaundice noted. Course Course 1600: The patient was evaluated in room C10, and a complete history and physical examination were performed. 1638: I performed a rectal exam at this time. See physical exam for details. 1720: I discussed the patients case with Dr. Kent [facility] hospitalist. She will evaluate the patient for further management. Administered Medications Gabapentin (Neurontin) 300 mg PO TID [place] Stop: 05/14/19 20:59 Last Admin: 04/14/19 21:24 Dose: 300 mg Documented by: [id number] Pantoprazole Sodium 40 mg/ (Dextrose) 100 mls @ 20 mls/hr IV Q5H [place] Stop: 05/14/19 17:44 Last Admin: 04/14/19 23:36 Dose: 20 mls/hr Documented by: [id number] Infusion: 04/14/19 23:18 Dose: 20 mls/hr Documented by: [id number] Admin: 04/14/19 18:18 Dose: 20 mls/hr Documented by: [id number] Sodium Chloride (Nss 1000ml) 1,000 mls @ 80 mls/hr IV .[id number] [place] Stop: 05/14/19 20:17 Last Admin: 04/14/19 20:47 Dose: 80 mls/hr Documented by: [id number] Metoprolol Tartrate (Lopressor) 50 mg PO HS [place] Stop: 05/14/19 20:59 Last Admin: 04/14/19 21:23 Dose: 50 mg Documented by: [id number] Pravastatin Sodium (Pravachol) 20 mg PO HS [place] Stop: 05/14/19 20:59 Last Admin: 04/14/19 21:24 Dose: 20 mg Documented by: [id number] Sucralfate (Carafate) 1 gm PO QID [place] Stop: 05/14/19 20:59 Last Admin: 04/14/19 21:21 Dose: 1 gm Documented by: [id number] Tramadol HCl (Ultram) 50 mg PO BID [place] Stop: 05/14/19 20:59 Last Admin: 04/14/19 21:25 Dose: Not Given Documented by: [id number] Discontinued Medications Sodium Chloride (Nss) 500 mls @ 999 mls/hr IV .Q31M [place] Stop: 04/14/19 16:30 Last Infusion: 04/14/19 17:14 Dose: 0 mls/hr Documented by: [id number] Admin: 04/14/19 16:32 Dose: 999 mls/hr Documented by: [id number] Pantoprazole Sodium 80 mg/ (Dextrose) 120 mls @ 480 mls/hr IV NOW ONE Stop: 04/14/19 17:44 Last Infusion: 04/14/19 18:41 Dose: 0 mls/hr Documented by: [id number] Admin: 04/14/19 17:53 Dose: 480 mls/hr Documented by: [id number] Ioversol (Optiray 320 100ml) 93 ml IV ONCE PRN PRN Reason: Interaction Checking Stop: 04/18/19 16:54 Last Admin: 04/14/19 16:55 Dose: 1 ml Documented by: [id number] Triamcinolone Acetonide (Kenalog 0.1%) 1 appln TOP BID [place] Stop: 05/14/19 20:59 Last Admin: 04/14/19 22:08 Dose: Not Given Documented by: [id number] Medical Decision Making Differential Diagnosis Differential diagnosis: Etiologies such as diverticulosis, AVM, coagulopathy, colitis, inflammatory bowel disease, malignancy, Naz-Soto tear, esophagitis, peptic ulcer disease, variceal bleed, gastritis, epistaxis, fissure, hemorrhoids, aswell as others were entertained. Medical Records Attestation: I reviewed the patient's medical records. Home Medications Current Medication List: was personally reviewed by me Laboratory Data Attestation: I reviewed the patient's lab results. Result diagrams: 04/14/19 21:54 04/14/19 16:13 Lab Results 04/14/19 04/14/19 04/14/19 Range/Units 16:13 16:13 16:13 WBC 7.66 (4.8-10.8) K/uL RBC 3.32 L (4.2-5.4) M/uL Hgb 11.7 L (12.0-16.0) g/dL POC Hgb (12.0-16.0) g/dl Hct 34.1 L (37-47) % POC Hct (37-47) % MCV 102.7 H (80-100) fL MCH 35.2 H (25-34) pg MCHC 34.3 (32-36) g/dL RDW Std Deviation 49.8 H (36.4-46.3) fL RDW Coeff of Gissell 13.4 (11.5-14.5) % Plt Count 191 (130-400) K/uL MPV 11.3 H (7.4-10.4) fL Immature Gran % (Auto) 0.3 % Neut % (Auto) 71.7 % Lymph % (Auto) 14.1 % Gilchrist % (Auto) 13.8 % Eos % (Auto) 0.0 % Baso % (Auto) 0.1 % Immature Gran # (Auto) 0.02 (0.00-0.02) K/uL Neut # (Auto) 5.49 (1.4-6.5) K/uL Lymph # (Auto) 1.08 L (1.2-3.4) K/uL Gilchrist # (Auto) 1.06 H (0.11-0.59) K/uL Eos # (Auto) 0.00 (0-0.5) K/uL Baso # (Auto) 0.01 (0-0.2) K/uL PT 10.9 (9.0-12.0) Seconds INR 1.1 (0.9-1.1) POC Sodium (135-144) mEq/L Sodium 137 (136-145) mmol/L POC Potassium (3.3-5.0) mEq/L Potassium 4.3 (3.5-5.1) mmol/L POC Chloride (101-112) mEq/L Chloride 105 (98-107) mmol/L Carbon Dioxide 25 (21-32) mmol/L POC Total CO2 (24-31) mEq/l Anion Gap 7.0 (3-11) POC Anion Gap (16-25) mmol/L POC BUN (7-18) mg/dl BUN 26 H (7-18) mg/dl Creatinine 1.26 H (0.6-1.2) mg/dl POC Creatinine (0.6-1.3) mg/dl Est Cr Clr Drug Dosing Not Reportable Est GFR ( Amer) 45.3 Est GFR (Non-Af Amer) 39.1 BUN/Creatinine Ratio 20.6 H (10-20) Glucose 107 H (70-99) mg/dl POC Glucose (other) (70-99) mg/dl Calcium 9.2 (8.5-10.1) mg/dl POC Ioniz Calcium [place] (1.12-1.32) mmol/l Phosphorus 3.5 (2.5-4.9) mg/dl Magnesium 1.8 (1.8-2.4) mg/dl Total Bilirubin 1.3 H (0.2-1) mg/dl AST 15 (15-37) U/L ALT 14 (12-78) U/L Alkaline Phosphatase 79 (45-117) U/L Troponin I < 0.015 (0-0.045) ng/ml NT-Pro-B Natriuret Pep (0-1800) pg/ml Total Protein 6.8 (6.4-8.2) gm/dl Albumin 3.3 L (3.4-5.0) gm/dl Globulin 3.5 (2.5-4.0) gm/dl Albumin/Globulin Ratio 0.9 (0.9-2) Lipase 296 (73-393) U/L Urine Color Urine Appearance (Clear) Urine pH (4.5-7.5) Ur Specific [place] (1.000-1.030) Urine Protein (Negative) Urine Glucose (UA) (Negative) Urine Ketones (Negative) Urine Blood (Negative) Urine Nitrite (Negative) Urine Bilirubin (Negative) Urine Urobilinogen (Negative) Ur Leukocyte Esterase (Negative) Urine WBC (Auto) (0-5) /hpf Urine RBC (Auto) (0-4) /hpf U Hyaline Cast (Auto) (0-5) /lpf U Epithel Cells (Auto) (0-5) /lpf Urine Bacteria (Auto) (Negative) POC Stool Occult Blood (Negative) Blood Type Antibody Screen Crossmatch 04/14/19 04/14/19 04/14/19 Range/Units 16:13 16:23 16:28 WBC (4.8-10.8) K/uL RBC (4.2-5.4) M/uL Hgb (12.0-16.0) g/dL POC Hgb 11.2 L (12.0-16.0) g/dl Hct (37-47) % POC Hct 33 L (37-47) % MCV (80-100) fL MCH (25-34) pg MCHC (32-36) g/dL RDW Std Deviation (36.4-46.3) fL RDW Coeff of Gissell (11.5-14.5) % Plt Count (130-400) K/uL MPV (7.4-10.4) fL Immature Gran % (Auto) % Neut % (Auto) % Lymph % (Auto) % Gilchrist % (Auto) % Eos % (Auto) % Baso % (Auto) % Immature Gran # (Auto) (0.00-0.02) K/uL Neut # (Auto) (1.4-6.5) K/uL Lymph # (Auto) (1.2-3.4) K/uL Gilchrist # (Auto) (0.11-0.59) K/uL Eos # (Auto) (0-0.5) K/uL Baso # (Auto) (0-0.2) K/uL PT (9.0-12.0) Seconds INR (0.9-1.1) POC Sodium 134 L (135-144) mEq/L Sodium (136-145) mmol/L POC Potassium 4.3 (3.3-5.0) mEq/L Potassium (3.5-5.1) mmol/L POC Chloride 104 (101-112) mEq/L Chloride (98-107) mmol/L Carbon Dioxide (21-32) mmol/L POC Total CO2 23 L (24-31) mEq/l Anion Gap (3-11) POC Anion Gap 12.0 L (16-25) mmol/L POC BUN 24 H (7-18) mg/dl BUN (7-18) mg/dl Creatinine (0.6-1.2) mg/dl POC Creatinine 1.3 (0.6-1.3) mg/dl Est Cr Clr Drug Dosing Est GFR ( Amer) Est GFR (Non-Af Amer) BUN/Creatinine Ratio (10-20) Glucose (70-99) mg/dl POC Glucose (other) 108 H (70-99) mg/dl Calcium (8.5-10.1) mg/dl POC Ioniz Calcium [place] 1.21 (1.12-1.32) mmol/l Phosphorus (2.5-4.9) mg/dl Magnesium (1.8-2.4) mg/dl Total Bilirubin (0.2-1) mg/dl AST (15-37) U/L ALT (12-78) U/L Alkaline Phosphatase (45-117) U/L Troponin I (0-0.045) ng/ml NT-Pro-B Natriuret Pep 1282 (0-1800) pg/ml Total Protein (6.4-8.2) gm/dl Albumin (3.4-5.0) gm/dl Globulin (2.5-4.0) gm/dl Albumin/Globulin Ratio (0.9-2) Lipase (73-393) U/L Urine Color Urine Appearance (Clear) Urine pH (4.5-7.5) Ur Specific [place] (1.000-1.030) Urine Protein (Negative) Urine Glucose (UA) (Negative) Urine Ketones (Negative) Urine Blood (Negative) Urine Nitrite (Negative) Urine Bilirubin (Negative) Urine Urobilinogen (Negative) Ur Leukocyte Esterase (Negative) Urine WBC (Auto) (0-5) /hpf Urine RBC (Auto) (0-4) /hpf U Hyaline Cast (Auto) (0-5) /lpf U Epithel Cells (Auto) (0-5) /lpf Urine Bacteria (Auto) (Negative) POC Stool Occult Blood (Negative) Blood Type A Positive Antibody Screen NEGATIVE Crossmatch See Detail 04/14/19 04/14/19 Range/Units 16:54 18:40 WBC (4.8-10.8) K/uL RBC (4.2-5.4) M/uL Hgb (12.0-16.0) g/dL POC Hgb (12.0-16.0) g/dl Hct (37-47) % POC Hct (37-47) % MCV (80-100) fL MCH (25-34) pg MCHC (32-36) g/dL RDW Std Deviation (36.4-46.3) fL RDW Coeff of Gissell (11.5-14.5) % Plt Count (130-400) K/uL MPV (7.4-10.4) fL Immature Gran % (Auto) % Neut % (Auto) % Lymph % (Auto) % Gilchrist % (Auto) % Eos % (Auto) % Baso % (Auto) % Immature Gran # (Auto) (0.00-0.02) K/uL Neut # (Auto) (1.4-6.5) K/uL Lymph # (Auto) (1.2-3.4) K/uL Gilchrist # (Auto) (0.11-0.59) K/uL Eos # (Auto) (0-0.5) K/uL Baso # (Auto) (0-0.2) K/uL PT (9.0-12.0) Seconds INR (0.9-1.1) POC Sodium (135-144) mEq/L Sodium (136-145) mmol/L POC Potassium (3.3-5.0) mEq/L Potassium (3.5-5.1) mmol/L POC Chloride (101-112) mEq/L Chloride (98-107) mmol/L Carbon Dioxide (21-32) mmol/L POC Total CO2 (24-31) mEq/l Anion Gap (3-11) POC Anion Gap (16-25) mmol/L POC BUN (7-18) mg/dl BUN (7-18) mg/dl Creatinine (0.6-1.2) mg/dl POC Creatinine (0.6-1.3) mg/dl Est Cr Clr Drug Dosing Est GFR ( Amer) Est GFR (Non-Af Amer) BUN/Creatinine Ratio (10-20) Glucose (70-99) mg/dl POC Glucose (other) (70-99) mg/dl Calcium (8.5-10.1) mg/dl POC Ioniz Calcium [place] (1.12-1.32) mmol/l Phosphorus (2.5-4.9) mg/dl Magnesium (1.8-2.4) mg/dl Total Bilirubin (0.2-1) mg/dl AST (15-37) U/L ALT (12-78) U/L Alkaline Phosphatase (45-117) U/L Troponin I (0-0.045) ng/ml NT-Pro-B Natriuret Pep (0-1800) pg/ml Total Protein (6.4-8.2) gm/dl Albumin (3.4-5.0) gm/dl Globulin (2.5-4.0) gm/dl Albumin/Globulin Ratio (0.9-2) Lipase (73-393) U/L Urine Color Yellow Urine Appearance Clear (Clear) Urine pH 5.0 (4.5-7.5) Ur Specific [place] 1.029 (1.000-1.030) Urine Protein Negative (Negative) Urine Glucose (UA) Negative (Negative) Urine Ketones Negative (Negative) Urine Blood Negative (Negative) Urine Nitrite Negative (Negative) Urine Bilirubin Negative (Negative) Urine Urobilinogen Negative (Negative) Ur Leukocyte Esterase 1+ H (Negative) Urine WBC (Auto) 1-5 (0-5) /hpf Urine RBC (Auto) 0-4 (0-4) /hpf U Hyaline Cast (Auto) 1-5 (0-5) /lpf U Epithel Cells (Auto) 10-20 H (0-5) /lpf Urine Bacteria (Auto) Negative (Negative) POC Stool Occult Blood Positive A (Negative) Blood Type Antibody Screen Crossmatch Imaging Data Radiologist's Impression: Radiology results as stated below per my review and the radiologist's interpretation: CT abd pelvis IV con only CLINICAL HISTORY: 84 years-old Female presenting with melena, h/o colitis. TECHNIQUE: Multidetector CT of the abdomen and pelvis was performed after the administration of intravenous contrast. IV contrast: 90 mL of Optiray 320. One or more dose lowering techniques were used consistent with the principles of ALARA (as low as reasonably achievable), including automatic exposure control, mA or kV adjustment to individual patient size, and/or use of iterative reconstruction. COMPARISON: 07/17/2016. CT DOSE (mGy.cm): The estimated cumulative dose is 423.10 mGy.cm. FINDINGS: Spool Salvager topogram: Orthopedic hardware. Lung bases: Multichamber enlargement of the heart. Coronary artery calcification. 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 No pericardial or pleural effusion. Centrilobular emphysema. Minimal dependent changes likely atelectasis. Liver: Normal morphology. No liver lesion. Patent hepatic vasculature. Biliary: No intrahepatic or extrahepatic biliary ductal dilatation. Normal gallb ladder. Pancreas: Normal. Spleen: Calcifications in the spleen suggest a history of granulomatous disease. Adrenal glands: Normal. Kidneys and ureters: Chronic severe atrophy of the left kidney as on prior exam. Normal appearance of the right kidney. Bladder: Normal. Pelvic organs: Uterus surgically absent. Bowel: Postsurgical changes of appendectomy or ileocecectomy. Postsurgical changes of the small bowel in the right mid abdomen. No bowel obstruction. Moderate sliding type hiatal hernia. Circumferential low density wall thickening of the gastric antrum. No perigastric inflammatory changes. Peritoneal cavity: No free fluid or intraperitoneal gas. Lymph nodes: No enlarged lymph nodes in the abdomen or pelvis. Vasculature: Densely calcified abdominal aorta as well as the origins of the major branch vessels. IVC patent. Abdominal wall: Abdominal wall laxity noted Musculoskeletal: Degenerative changes of the spine. Exaggerated endplate concavities suggest underlying osteoporosis/osteopenia. Additionally new mild depression of the superior endplate of L2 suggests an interval compression fracture. This is also new since the prior CT from 10/05/2018. IMPRESSION: 1. Wall thickening of the gastric antrum could suggest a mild gastritis. No perigastric inflammatory change to suggest a more advanced gastritis. 2. Postsurgical changes of the bowel. No bowel obstruction. 3. Chronic severe left renal atrophy. 4. Mild compression fracture involving the superior endplate of L2 new since prior CT lumbar spine from September 2018. Correlate for point tenderness to assess for acuity. 5. Extensive atherosclerosis. 6. Emphysema. ACT 112: Negative or not required by law. Electronically signed by: True Cloud M.D. 04/14/2019 5:10 PM XR chest 1V portable CLINICAL HISTORY: Chest Pain dyspnea COMPARISON STUDY: 12/02/2018 FINDINGS: The bones soft tissues and hemidiaphragms are normal. The cardiomediastinal silhouette is normal. The lungs are clear. The pulmonary vasculature is normal. IMPRESSION: Mild cardiomegaly. Otherwise negative study. ACT 112: Negative or not required by law. The above report was generated using voice recognition software. It may contain grammatical, syntax or spelling errors. Electronically signed by: Dudley Payton M.D. 04/14/2019 4:29 PM ECG Data Attestation: I personally reviewed and interpreted this ECG as follows: Indication: + nausea and + weakness Rate (beats per minute): 57 Rhythm: + sinus bradycardia ECG [place]: + Normal ECG ST segments: no ST depression and no ST elevation ECG Findings: + Other (QT-c 439.); no PACs and no PVCs Blood Pressure Blood Pressure Findings: Elevated blood pressure Blood Pressure Disposition: further management by hospitalist [facility] Narrative The patient is a pleasant 84-year-old woman with a past medical history of factor V Leiden, on Eliquis with a history of DVT/PE who presents emergency department with generalized weakness with new onset melena/black stools that began yesterday per HPI. On arrival the patient is fatigued appearing but no acute distress, afebrile stable vital signs. On exam patient has scant black stool/melena that is Hemoccult positive. There is no gross hemorrhage or red blood. EKG without overt acute ischemia. Chest x-ray negative for acute process. Blood work demonstrates anemia with H/H of 10.6/39.8 down from 13.6/38 in July BUN of 26 and Cr. 1.2 slightly increased form prior c/w patient's clinically dry appearance of likely upper GIB. CT of abdomen pelvis demons trates evidence of gastritis. Given Hemodynamically stable without gross hemorrhage, no indication transfusiona t this time. Patient agreeable with admission. Patient was ordered for Protonix bolus and drip. Case was discussed with Dr. Kent, [facility] hospitalist, who evaluate the patient for admission. Impression & Plan Acute upper GI bleed, Gastritis, Melena, Anemia Discharge Plan Visit Data *Final* Discharge Date/Time: 04/14/19 19:29 Chief Complaint: Illness Stated Complaint: BLACK STOOLS,NOT FEELING WELL ED Provider: Diaz Washington Discharge Problem: Acute upper GI bleed, Gastritis, Melena, Anemia Patient Disposition: Admitted As Inpatient Discharge Instructions Interventions: ED Discharge Assessment Last Done: 04/14/19 19:29 Discharge Problem: Gastritis Qualifiers: Gastritis type: unspecified gastritis Chronicity: unspecified Gastritis bleeding: with bleeding Qualified Code(s): K29.71 - Gastritis, unspecified, with bleeding Anemia Qualifiers: Anemia type: unspecified type Qualified Code(s): D64.9 - Anemia, unspecified The scribe's documentation has been prepared under my direction and personally reviewed by me in its entirety. I confirm that the note above accurately reflects all work, treatment, procedures, and medical decision making performed by me.
[2019-04-14 19:06] LABS: Appearance Urine Clear (Clear); Bacteria Urine Automated Negative (Negative); Bilirubin Urine Negative (Negative); Blood Urine Negative (Negative); Color Urine Yellow; Glucose Urine UA Negative (Negative); Ketones Urine Negative (Negative); Leukocyte Esterase Urine 1+ (Negative); Nitrite Urine Negative (Negative); Protein Urine Negative (Negative); RBC Urine Automated 0-4 /hpf (0-4); Specific Gravity Urine 1.029 (1.000-1.030); Urobilinogen Urine Negative (Negative)
--- NOTE | 2019-04-14 19:16 | History & Physical Report ---
Date of Service April 14, 2019 Assessment & Plan (1) Acute upper GI bleed: Obdulia Charles is a 84 y/o female with past medical hx of HTN, HLD, Factor V, PE, Collagenous Colitis who presented to the [facility] ED with CC of Melena. 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 She had Melena x3 episodes starting yesterday with last episode this AM. None since and none currently. Her CT Abd showed gastritis as presumed source of upper GI bleed. Acute Upper GI Bleed - Protonix started in the ED and will continue - Sacralfate 1gm QID started - Will hold Eliquis and Budesonide - GI Consult placed; Follows with GI Dr. Goff as outpatient - Type and Cross 2 units and hold, Hgb currently 11.7, no indication for transfusion - NPO - H&H q6Hr scheduled HTN - Will hold Losartan and Spironolactone since GI bleed and slight elevation in Creatinine - Okay to give home Metoprolol tartrate 100mg PO daily, 50mg qHS - Monitor vitals - Currently elevated with 171/97, could be compensation from blood loss and will give IV fluids Hx of Pulmonary HTN - No reported history of Cardiac Disease - Review of records show Hx of Pulmonary HTN and Echo 2016 showing Grade 1 diastolic dysfunction with EF 70% - BNP ordered for consideration for CHF HLD - Continue with home pravastatin 20mg PO HS Collagenous Colitis - Will hold Budesonide and Mesalamine Depression - Continue with Escitalopram 20mg PO daily Osteoarthritis/Chronic Back Pain/New L2 Compression Fracture on CT - Continue with Tramadol 50mg BID - Gabapentin 300mg PO TID - No current pain so will keep on home medications - Added Tylenol PO for pain PRN Diet: NPO FEN: NSS 80ml/Hr Code Status: DNR/DNI (2) Gastritis: (3) Melena: (4) Anemia: (5) Chronic diarrhea: (6) On anticoagulant therapy: (7) Factor 5 Leiden mutation, heterozygous: (8) Hypertension: History of Present Illness Chief Complaint: Melena Primary Care Provider: LUIS Mcgovern Obdulia Charles is a 84 y/o female with past medical hx of HTN, HLD, Factor V, PE, Collagenous Colitis who presented to the [facility] ED with CC of Melena. Obdulia notes that she started not feeling well about 2 days ago with symptoms of generally not feeling well. She noted melena starting yesterday evening and episodes of Melena x 3. She scheduled an appointment with and saw Senior Resident Marky Shaffer in conjunction with Dr. Holbrook Attending who recommended her to come here [facility] for further workup of presumed GI bleed. She notes she is currently on Eliquis 5mg BID dosing from prior saddle PE about 3 years ago with a hx of Factor V Leiden. She notes last taking her Eliquis this AM. Her last meal was a grilled cheese at 1pm today. She denies any abdominal pain, chest pain, shortness of breath, or aspirin use. She denies any prior history of GI bleed. Allergies Allergy/AdvReac Type Severity Reaction Status Date / Time No Known Allergies Allergy Verified 04/14/19 16:18 Home Medications Home Medications Medication Instructions Recorded Confirmed Type budesonide 3 mg PO DAILY 02/17/18 04/14/19 History escitalopram oxalate 20 mg PO DAILY 02/17/18 04/14/19 History mesalamine 2.4 mg PO DAILY 02/17/18 04/14/19 History pravastatin 20 mg PO HS 02/17/18 04/14/19 History spironolactone 50 mg PO DAILY 02/17/18 04/14/19 History ergocalciferol (vitamin D2) 2,500 2,500 units PO DAILY 06/20/18 04/14/19 History unit capsule losartan 100 mg tablet 100 mg PO DAILY 07/08/18 04/14/19 History metoprolol tartrate 25 mg tablet 100 mg PO DAILY tab 11/27/18 04/14/19 History metoprolol tartrate 50 mg tablet 50 mg PO HS tab 11/27/18 04/14/19 History apixaban 5 mg tablet 5 mg PO BID #180 tab 01/13/19 04/14/19 Rx tramadol 50 mg tablet 50 mg PO .BID-TID #60 tab 01/27/19 04/14/19 Rx triamcinolone acetonide 0.1 % 1 appln TOP .COMPLEX gm 02/20/19 04/14/19 History topical cream gabapentin 300 mg capsule 300 mg PO TID #90 cap 03/17/19 04/14/19 Rx Past Med/Surg History Medical History Anxiety (Chronic) Chronic diarrhea (Chronic) ON MESALAMINE Collagenous colitis Deep vein thrombosis (Resolved) R LEG Degenerative disc disease (Chronic) Factor 5 Leiden mutation, heterozygous (Chronic) Hypertension (Chronic) Lumbago (Chronic) Lumbar canal stenosis (Chronic) Multilevel On anticoagulant therapy (Chronic) ELIQUIS Osteoarthritis (Chronic) Pulmonary embolism (Resolved) BILT---REASON FOR ELIQUIS Right lumbar radiculitis (Chronic) Surgical History H/O bilateral cataract extraction (Resolved) History of blepharoplasty (Resolved) BILT History of colonoscopy (Resolved) History of tonsillectomy and adenoidectomy (Resolved) History of tooth extraction (Resolved) ALL UPPER TEETH History of total abdominal hysterectomy and bilateral salpingo-oophorectomy (Resolved) Status post right hip replacement (Resolved) Family History Other No significant family history Social History Preferred Language: Turkish Communication Ability: Effective Visual Impairment: No Limitations 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: Normal [employer] Required: No Beliefs That Will Affect Care: None marital status: Current Living Situation: Spouse current occupational status: retired Other Information That Helps Us Care for You: No Feels Safe at Home: Yes Safety Concerns: Feels Safe At This Time Smoking Status: Former smoker Tobacco Type: cigarettes ; Cigarettes Per Day: last smoke 1975 ; Do You Dip or Chew Tobacco: No ; Second Hand Exposure: No ; Hx Alcohol Use: Yes Alcohol type: wine Hx Substance Use: Yes ([facility]) substance use type: marijuana Sub stance Use Type Other:: medical marijuana card Last Used Substance Other:: two weeks ago Review of Systems Review of Systems: All systems reviewed & are unremarkable except as noted in HPI & below Constitutional: no fever and no chills Eyes: + dry eyes (left chronic) Ear, Nose, Mouth, Throat: + epistaxis (sunday x 1, 2 days ago, resolved on own); no ear pain, no bleeding gums and no sore throat Respiratory: no cough and no dyspnea Cardiovascular: no chest pain and no syncope Gastrointestinal: no abdominal pain, no nausea and no vomiting Genitourinary: no dysuria and no difficulty urinating Musculoskeletal: no back pain and no joint pain Integumentary: no rash and no bleeding lesions Neurologic: no headache(s) and no confusion Physical Exam Constitutional: WD/WN, vitals as above cooperative and comfortable Eyes: PERRL, conjunctivae normal, anicteric sclerae ENMT: external ear and nose normal, oropharynx normal Neck: normal visual inspection and trachea midline Respiratory: normal respiratory effort, lungs clear to auscultation Cardiovascular: RRR, no murmur, no edema Gastrointestinal (Abdomen): Inspection/Auscultation: normal bowel sounds Percussion/Palpation: abdomen soft; abdomen nontender, no guarding and abdomen not rigid Musculoskeletal: Head/Neck/Chest: normocephalic and head atraumatic Skin: diffuse extremity ecchymosis over bony surfaces in various stages of healing Neurologic: moves all extremities and awake Psychiatric: A+Ox3, euthymic affect Results & Data Vital Signs (Past 12 Hours) Vital Signs Temp Pulse Pulse Resp BP BP Pulse Ox 04/14/19 18:17 66 20 171/97 H 97 04/14/19 16:27 58 L 17 161/77 H 94 04/14/19 14:43 36.8 C 62 16 130/65 97 Laboratory Results Laboratory Results - last 24 hr 04/14/19 04/14/19 04/14/19 16:13 16:13 16:13 WBC 7.66 RBC 3.32 L Hgb 11.7 L POC Hgb Hct 34.1 L POC Hct MCV 102.7 H MCH 35.2 H MCHC 34.3 RDW Std Deviation 49.8 H RDW Coeff of Gissell 13.4 Plt Count 191 MPV 11.3 H Immature Gran % (Auto) 0.3 Neut % (Auto) 71.7 Lymph % (Auto) 14.1 [place] % (Auto) 13.8 Eos % (Auto) 0.0 Baso % (Auto) 0.1 Immature Gran # (Auto) 0.02 Neut # (Auto) 5.49 Lymph # (Auto) 1.08 L [place] # (Auto) 1.06 H Eos # (Auto) 0.00 Baso # (Auto) 0.01 PT 10.9 INR 1.1 POC Sodium Sodium 137 POC Potassium Potassium 4.3 POC Chloride Chloride 105 Carbon Dioxide 25 POC Total CO2 Anion Gap 7.0 POC Anion Gap POC BUN BUN 26 H Creatinine 1.26 H POC Creatinine Est Cr Clr Drug Dosing Not Reportable Est GFR ( Amer) 45.3 Est GFR (Non-Af Amer) 39.1 BUN/Creatinine Ratio 20.6 H Glucose 107 H POC Glucose (other) Calcium 9.2 POC Ioniz Calcium [place] Phosphorus 3.5 Magnesium 1.8 Total Bilirubin 1.3 H AST 15 ALT 14 Alkaline Phosphatase 79 Troponin I < 0.015 Total Protein 6.8 Albumin 3.3 L Globulin 3.5 Albumin/Globulin Ratio 0.9 Lipase 296 Urine Color Urine Appearance Urine pH Ur Specific [place] Urine Protein Urine Glucose (UA) Urine Ketones Urine Blood Urine Nitrite Urine Bilirubin Urine Urobilinogen Ur Leukocyte Esterase POC Stool Occult Blood Blood Type Antibody Screen 04/14/19 04/14/19 04/14/19 16:23 16:28 16:54 WBC RBC Hgb POC Hgb 11.2 L Hct POC Hct 33 L MCV MCH MCHC RDW Std Deviation RDW Coeff of Gissell Plt Count MPV Immature Gran % (Auto) Neut % (Auto) Lymph % (Auto) [place] % (Auto) Eos % (Auto) Baso % (Auto) Immature Gran # (Auto) Neut # (Auto) Lymph # (Auto) [place] # (Auto) Eos # (Auto) Baso # (Auto) PT INR POC Sodium 134 L Sodium POC Potassium 4.3 Potassium POC Chloride 104 Chloride Carbon Dioxide POC Total CO2 23 L Anion Gap POC Anion Gap 12.0 L POC BUN 24 H BUN Creatinine POC Creatinine 1.3 Est Cr Clr Drug Dosing Est GFR ( Amer) Est GFR (Non-Af Amer) BUN/Creatinine Ratio Glucose POC Glucose (other) 108 H Calcium POC Ioniz Calcium [place] 1.21 Phosphorus Magnesium Total Bilirubin AST ALT Alkaline Phosphatase Troponin I Total Protein Albumin Globulin Albumin/Globulin Ratio Lipase Urine Color Urine Appearance Urine pH Ur Specific [place] Urine Protein Urine Glucose (UA) Urine Ketones Urine Blood Urine Nitrite Urine Bilirubin Urine Urobilinogen Ur Leukocyte Esterase POC Stool Occult Blood Positive A Blood Type A Positive Antibody Screen NEGATIVE 04/14/19 18:40 WBC RBC Hgb POC Hgb Hct POC Hct MCV MCH MCHC RDW Std Deviation RDW Coeff of Gissell Plt Count MPV Immature Gran % (Auto) Neut % (Auto) Lymph % (Auto) [place] % (Auto) Eos % (Auto) Baso % (Auto) Immature Gran # (Auto) Neut # (Auto) Lymph # (Auto) [place] # (Auto) Eos # (Auto) Baso # (Auto) PT INR POC Sodium Sodium POC Potassium Potassium POC Chloride Chloride Carbon Dioxide POC Total CO2 Anion Gap POC Anion Gap POC BUN BUN Creatinine POC Creatinine Est Cr Clr Drug Dosing Est GFR ( Amer) Est GFR (Non-Af Amer) BUN/Creatinine Ratio Glucose POC Glucose (other) Calcium POC Ioniz Calcium [place] Phosphorus Magnesium Total Bilirubin AST ALT Alkaline Phosphatase Troponin I Total Protein Albumin Globulin Albumin/Globulin Ratio Lipase Urine Color Pending Urine Appearance Pending Urine pH Pending Ur Specific [place] Pending Urine Protein Pending Urine Glucose (UA) Pending Urine Ketones Pending Urine Blood Pending Urine Nitrite Pending Urine Bilirubin Pending Urine Urobilinogen Pending Ur Leukocyte Esterase Pending POC Stool Occult Blood Blood Type Antibody Screen Diagnostic Findings CT Abd Pelvis w IV contrast IMPRESSION: 1. Wall thickening of the gastric antrum could suggest a mild gastritis. No perigastric inflammatory change to suggest a more advanced gastritis. 2. Postsurgical changes of the bowel. No bowel obstruction. 3. Chronic severe left renal atrophy. 4. Mild compression fracture involving the superior endplate of L2 new since prior CT lumbar spine from September 2018. Correlate for point tenderness to assess for acuity. 5. Extensive atherosclerosis. 6. Emphysema. Medications Administered Pantoprazole Sodium 40 mg/ (Dextrose) 100 mls @ 20 mls/hr IV Q5H [facility] Stop: 05/14/19 17:44 Last Admin: 04/14/19 18:18 Dose: 20 mls/hr Documented by: [id number] Ioversol (Optiray 320 100ml) 93 ml IV ONCE PRN PRN Reason: Interaction Checking Stop: 04/18/19 16:54 Last Admin: 04/14/19 16:55 Dose: 1 ml Documented by: [id number] Code Status & VTE Plan Code Status DNR/DNI VTE Prophylaxis Plan VTE Prophylaxis will be ordered: Yes Reason for no VTE drug order: Contraindicated Supervising Physician Co-Signing Physician Notes I have seen and examined pt with Dr. Rocha and I was directly involved in assessment and plan of the further management, therefore I agree with 's history and physical. My physical exam is : Physical Exam Constitutional: WD/WN, vitals as above cooperative and comfortable Eyes: PERRL, conjunctivae normal, anicteric sclerae ENMT: external ear and nose normal, oropharynx normal Neck: normal visual inspection and trachea midline Respiratory: normal respiratory effort, lungs clear to auscultation Cardiovascular: RRR, no murmur, no edema Gastrointestinal (Abdomen): Inspection/Auscultation: normal bowel sounds Percussion/Palpation: abdomen soft; abdomen nontender, no guarding and abdomen not rigid Musculoskeletal: Head/Neck/Chest: normocephalic and head atraumatic Skin: diffuse extremity ecchymosis over bony surfaces in various stages of healing Neurologic: moves all extremities and awake Psychiatric: A+Ox3, euthymic affect Resident Activity Tracking Resident Involvement: Resident Care Provided Care Provided: Adult Hospital Medicine (1) Anemia Anemia type: unspecified type Qualified Code(s): D64.9 - Anemia, unspecified (2) Gastritis Chronicity: unspecified Gastritis bleeding: with bleeding Gastritis type: unspecified gastritis Qualified Code(s): K29.71 - Gastritis, unspecified, with bleeding
[2019-04-14] MEDS ORDERED: SODIUM CHLORIDE 0.9% 250 ML IV PRN (20:18)
[2019-04-14] MEDS ORDERED: ACETAMINOPHEN 325 MG TAB PO PRN (20:18)
[2019-04-14] MEDS ORDERED: ONDANSETRON INJ 2 MG/ML 2 ML VIAL IV PRN (20:18)
[2019-04-14] MEDS: SODIUM CHLORIDE 0.9% 1000ML 1,000 ML IV SCH (20:47)
[2019-04-14] MEDS ORDERED: TRIAMCINOLONE ACET 0.1% CR 15 GM TUBE TOP SCH (21:00)
[2019-04-14] MEDS: SUCRALFATE 1 GM/10 ML UDC PO SCH (21:21)
[2019-04-14] MEDS: METOPROLOL TARTRATE 50 MG TAB PO SCH (21:23)
[2019-04-14] MEDS: PRAVASTATIN SOD 20 MG TAB PO SCH (21:24)
[2019-04-14] MEDS: GABAPENTIN 300 MG CAP PO SCH (21:24)
[2019-04-14] MEDS: TRAMADOL HCL 50 MG TABLET PO SCH (21:25)
[2019-04-14 22:20] LABS: Hematocrit (blood only) 30.8 % (37-47); Hemoglobin 10.6 g/dL (12.0-16.0)
[2019-04-15] MEDS: PANTOprazole 40 MG in DEXTROSE 5% 100 ML IV SCH ×5 (04:27→22:52)
[2019-04-15 04:30] LABS: Basophils # (auto) 0.01 K/uL (0-0.2); Basophils % (auto) 0.2 %; Hematocrit (blood only) 30.3 % (37-47); Hemoglobin 10.1 g/dL (12.0-16.0); Immature Granulocytes # (auto) 0.02 K/uL (0.00-0.02); Immature Granulocytes % (auto) 0.3 %; Lymphocytes # (auto) 1.43 K/uL (1.2-3.4); Mean Corpuscular Hemoglobin 35.1 pg (25-34); Mean Corpuscular Hgb Conc 33.3 g/dL (32-36); Mean Corpuscular Volume 105.2 fL (80-100); Mean Platelet Volume 10.8 fL (7.4-10.4); Monocytes # (auto) 0.96 K/uL (0.11-0.59); Monocytes % (auto) 14.7 %; Neutrophils # (auto) 4.09 K/uL (1.4-6.5); Neutrophils % (auto) 62.8 %; Platelet Count 175 K/uL (130-400); RDW Coefficient of Variation 13.4 % (11.5-14.5); RDW Standard Deviation 50.8 fL (36.4-46.3); Red Blood Count 2.88 M/uL (4.2-5.4); White Blood Count 6.51 K/uL (4.8-10.8)
[2019-04-15 04:35] LABS: INR 1.1 (0.9-1.1); Prothrombin Time 10.8 Seconds (9.0-12.0)
[2019-04-15 04:46] LABS: Albumin Level 2.7 gm/dl (3.4-5.0); BUN Creatinine Ratio 15.4 (10-20); Calcium 8.5 mg/dl (8.5-10.1); Est GFR (African American) 50.1; Est GFR (Non-African American) 43.2; Magnesium 1.5 mg/dl (1.8-2.4)
[2019-04-15 04:49] LABS: Albumin Globulin Ratio 0.9 (0.9-2); Bilirubin,Total 1.2 mg/dl (0.2-1); Globulin 3.1 gm/dl (2.5-4.0); Phosphorus 3.3 mg/dl (2.5-4.9); Total Protein 5.8 gm/dl (6.4-8.2)
[2019-04-15] MEDS: SUCRALFATE 1 GM/10 ML UDC PO SCH ×4 (07:44→20:06)
[2019-04-15] MEDS: ESCITALOPRAM OXALATE 20 MG TAB PO SCH (07:44)
[2019-04-15] MEDS: METOPROLOL TARTRATE 100 MG TAB PO SCH (07:44)
[2019-04-15] MEDS: TRAMADOL HCL 50 MG TABLET PO SCH ×2 (07:44→20:10)
[2019-04-15] MEDS: GABAPENTIN 300 MG CAP PO SCH ×3 (07:44→20:06)
[2019-04-15] MEDS: SODIUM CHLORIDE 0.9% 1000ML 1,000 ML IV SCH ×2 (08:35→20:12)
[2019-04-15 10:30] LABS: Hematocrit (blood only) 29.3 % (37-47); Hemoglobin 10.1 g/dL (12.0-16.0)
--- NOTE | 2019-04-15 15:16 | Anesthesiology Consultation ---
Date of Service April 15, 2019 Assessment & Plan (1) Encounter for pre-operative examination: Chart Review Chart Review: Acceptable Risk for Surgery and Patient NOT seen in Pre Admission Testing Consults Requested none History Surgery Operation Date: 04/15/19 15:30 Proposed Procedures p Esophagogastroduodenoscopy Dr Shell Goff Height/Weight Height: 5 ft 3 in Weight: 70.5 kg Allergies Allergy/AdvReac Type Severity Reaction Status Date / Time No Known Allergies Allergy Verified 04/14/19 16:18 Medications Home Medications Medication Instructions Recorded Confirmed Last Taken budesonide 3 mg PO DAILY 02/17/18 04/14/19 03/12/18 escitalopram oxalate 20 mg PO DAILY 02/17/18 04/14/19 03/12/18 mesalamine 2.4 mg PO DAILY 02/17/18 04/14/19 03/12/18 pravastatin 20 mg PO HS 02/17/18 04/14/19 03/12/18 spironolactone 50 mg PO DAILY 02/17/18 04/14/19 03/12/18 ergocalciferol (vitamin D2) 2,500 2,500 units PO DAILY 06/20/18 04/14/19 Unknown unit capsule losartan 100 mg tablet 100 mg PO DAILY 07/08/18 04/14/19 Unknown metoprolol tartrate 25 mg tablet 100 mg PO DAILY tab 11/27/18 04/14/19 Unknown metoprolol tartrate 50 mg tablet 50 mg PO HS tab 11/27/18 04/14/19 Unknown apixaban 5 mg tablet 5 mg PO BID #180 tab 01/13/19 04/14/19 Unknown tramadol 50 mg tablet 50 mg PO .BID-TID #60 tab 01/27/19 04/14/19 Unknown triamcinolone acetonide 0.1 % 1 appln TOP .COMPLEX gm 02/20/19 04/14/19 Unknown topical cream gabapentin 300 mg capsule 300 mg PO TID #90 cap 03/17/19 04/14/19 Unknown Active Medications Generic Name Dose Route Start Last Admin Trade Name Freq PRN Reason Stop Dose Admin Escitalopram Oxalate 20 mg 04/15/19 09:00 04/15/19 07:44 Lexapro Tab PO 05/15/19 08:59 20 mg DAILY [place] Administration Gabapentin 300 mg 04/14/19 21:00 04/15/19 13:30 Neurontin PO 05/14/19 20:59 300 mg TID [place] Administration Pantoprazole Sodium 40 mg/ 100 mls @ 20 mls/hr 04/14/19 17:45 04/15/19 13:29 Dextrose IV 05/14/19 17:44 20 mls/hr Q5H [place] Administration Sodium Chloride 1,000 mls @ 80 mls/hr 04/14/19 20:18 04/15/19 08:35 Nss 1000ml IV 05/14/19 20:17 80 mls/hr .[id number] [place] Administration Metoprolol Tartrate 50 mg 04/14/19 21:00 04/14/19 21:23 Lopressor PO 05/14/19 20:59 50 mg HS [place] Administration Metoprolol Tartrate 100 mg 04/15/19 09:00 04/15/19 07:44 Lopressor PO 05/15/19 08:59 100 mg DAILY [place] Administration Pravastatin Sodium 20 mg 04/14/19 21:00 04/14/19 21:24 Pravachol PO 05/14/19 20:59 20 mg HS [place] Administration Sucralfate 1 gm 04/14/19 21:00 04/15/19 11:28 Carafate PO 05/14/19 20:59 Not Given QID [place] Tramadol HCl 50 mg 04/14/19 21:00 04/15/19 07:44 Ultram PO 05/14/19 20:59 Not Given BID [place] NPO Date Last Intake of Fluids: 04/14/19 Time Last Intake of Fluids: 13:00 Last Intake of Fluids Comment: Ice chips until 1300 per patient. Date Last Intake of Solids: 04/14/19 Time Last Intake of Solids: 11:00 Past Medical History Medical History Anxiety (Chronic) Chronic diarrhea (Chronic) ON MESALAMINE Collagenous colitis Deep vein thrombosis (Resolved) R LEG Degenerative disc disease (Chronic) Factor 5 Leiden mutation, heterozygous (Chronic) Hypertension (Chronic) Lumbago (Chronic) Lumbar canal stenosis (Chronic) Multilevel On anticoagulant therapy (Chronic) ELIQUIS Osteoarthritis (Chronic) Pulmonary embolism (Resolved) BILT---REASON FOR ELIQUIS Right lumbar radiculitis (Chronic) Past Family History Family History Other No significant family history Past Surgical History Surgical History H/O bilateral cataract extraction (Resolved) History of blepharoplasty (Resolved) BILT History of colonoscopy (Resolved) History of tonsillectomy and adenoidectomy (Resolved) History of tooth extraction (Resolved) ALL UPPER TEETH History of total abdominal hysterectomy and bilateral salpingo-oophorectomy (Resolved) Status post right hip replacement (Resolved) Social History Smoking Status: Former smoker tobacco type: cigarettes Smoking cigarettes per day: last smoke 1976 Do You Dip or Chew Tobacco: No Hx Alcohol Use: Yes Alcohol type: wine alcohol intake frequency: a few times a week Hx 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) substance use type: marijuana Substance Use Type Other:: medical marijuana card Last Used Substance Other:: two weeks ago Physical Exam Vital Signs Last Vital Signs Temp 36.8 C 04/15/19 14:42 Pulse 59 L 04/15/19 14:42 Resp 20 04/15/19 14:42 BP 170/73 H 04/15/19 14:42 Pulse Ox 97 04/15/19 14:42 Testing Laboratory Results 04/15/19 10:09 04/15/19 04:07 PT 10.8 Seconds (9.0-12.0) 04/15/19 04:07 INR 1.1 (0.9-1.1) 04/15/19 04:07 Urine Color Yellow 04/14/19 18:40 Urine Appearance Clear (Clear) 04/14/19 18:40 Urine pH 5.0 (4.5-7.5) 04/14/19 18:40 Ur Specific [place] 1.029 (1.000-1.030) 04/14/19 18:40 Urine Protein Negative (Negative) 04/14/19 18:40 Urine Glucose (UA) Negative (Negative) 04/14/19 18:40 Urine Ketones Negative (Negative) 04/14/19 18:40 Urine Nitrite Negative (Negative) 04/14/19 18:40 Ur Leukocyte Esterase 1+ (Negative) H 04/14/19 18:40 Urine WBC (Auto) 1-5 /hpf (0-5) 04/14/19 18:40 Urine RBC (Auto) 0-4 /hpf (0-4) 04/14/19 18:40 U Hyaline Cast (Auto) 1-5 /lpf (0-5) 04/14/19 18:40 U Epithel Cells (Auto) 10-20 /lpf (0-5) H 04/14/19 18:40 Urine Bacteria (Auto) Negative (Negative) 04/14/19 18:40 Blood Type A Positive 04/14/19 16:28 Antibody Screen NEGATIVE 04/14/19 16:28
[2019-04-15] MEDS ORDERED: ePHEDrine sulfate 50 MG/ML AMP IV PRN (15:21)
[2019-04-15] MEDS ORDERED: ATROPINE SULFATE 0.1 MG/ML 10ML SYR IV PRN (15:21)
--- NOTE | 2019-04-15 15:28 | History & Physical Report ---
Date of Service April 15, 2019 History of Present Illness Chief Complaint: Melena, anemia Primary Care Provider: LUIS Mcgovern For EGD Allergies Allergy/AdvReac Type Severity Reaction Status Date / Time No Known Allergies Allergy Verified 04/14/19 16:18 Home Medications Home Medications Medication Instructions Recorded Confirmed Type budesonide 3 mg PO DAILY 02/17/18 04/14/19 History escitalopram oxalate 20 mg PO DAILY 02/17/18 04/14/19 History mesalamine 2.4 mg PO DAILY 02/17/18 04/14/19 History pravastatin 20 mg PO HS 02/17/18 04/14/19 History spironolactone 50 mg PO DAILY 02/17/18 04/14/19 History ergocalciferol (vitamin D2) 2,500 2,500 units PO DAILY 06/20/18 04/14/19 History unit capsule losartan 100 mg tablet 100 mg PO DAILY 07/08/18 04/14/19 History metoprolol tartrate 25 mg tablet 100 mg PO DAILY tab 11/27/18 04/14/19 History metoprolol tartrate 50 mg tablet 50 mg PO HS tab 11/27/18 04/14/19 History apixaban 5 mg tablet 5 mg PO BID #180 tab 01/13/19 04/14/19 Rx tramadol 50 mg tablet 50 mg PO .BID-TID #60 tab 01/27/19 04/14/19 Rx triamcinolone acetonide 0.1 % 1 appln TOP .COMPLEX gm 02/20/19 04/14/19 History topical cream gabapentin 300 mg capsule 300 mg PO TID #90 cap 03/17/19 04/14/19 Rx Past Med/Surg History Medical History Anxiety (Chronic) Chronic diarrhea (Chronic) ON MESALAMINE Collagenous colitis Deep vein thrombosis (Resolved) R LEG Degenerative disc disease (Chronic) Factor 5 Leiden mutation, heterozygous (Chronic) Hypertension (Chronic) Lumbago (Chronic) Lumbar canal stenosis (Chronic) Multilevel On anticoagulant therapy (Chronic) ELIQUIS Osteoarthritis (Chronic) Pulmonary embolism (Resolved) BILT---REASON FOR ELIQUIS Right lumbar radiculitis (Chronic) Surgical History H/O bilateral cataract extraction (Resolved) History of blepharoplasty (Resolved) BILT History of colonoscopy (Resolved) History of tonsillectomy and adenoidectomy (Resolved) History of tooth extraction (Resolved) ALL UPPER TEETH History of total abdominal hysterectomy and bilateral salpingo-oophorectomy (Resolved) Status post right hip replacement (Resolved) Family History Other No significant family history Social History Preferred Language: Italian Communication Ability: Effective Visual Impairment: No Limitations 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: Normal Wireless Field Technician Required: No Beliefs That Will Affect Care: None marital status: Current Living Situation: Spouse current occupational status: retired Other Information That Helps Us Care for You: No Feels Safe at Home: Yes Safety Concerns: Feels Safe At This Time Smoking Status: Former smoker Tobacco Type: cigarettes ; Cigarettes Per Day: last smoke 1975 ; Do You Dip or Chew Tobacco: No ; Second Hand Exposure: No ; Hx Alcohol Use: Yes Alcohol type: wine Hx Substance Use: Yes (medical [place]) substance use type: marijuana Substance Use Type Other:: medical marijuana card Last Used Substance Other:: two weeks ago Physical Exam Constitutional: + frail appearing Respiratory: normal respiratory effort Cardiovascular: Rate/Rhythm: regular rate and regular rhythm Gastrointestinal (Abdomen): Percussion/Palpation: abdomen soft Results & Data Vital Signs (Past 12 Hours) Vital Signs Temp Pulse Pulse Resp BP BP Pulse Ox 04/15/19 14:42 36.8 C 59 L 20 170/73 H 97 04/15/19 12:13 37 C 57 L 18 167/82 H 97 04/15/19 08:20 36.7 C 55 L 20 146/67 H 93 04/15/19 08:00 64 04/15/19 07:47 61 04/15/19 04:01 36.7 C 62 20 155/83 H 96 Code Status & VTE Plan VTE Prophylaxis Plan VTE Prophylaxis will be ordered: Yes Reason for no VTE drug order: Contraindicated
[2019-04-15] MEDS ORDERED: SODIUM CHLORIDE 0.9% 1000ML 1,000 ML IV SCH (15:30)
--- NOTE | 2019-04-15 16:44 | Consultation Report ---
DATE OF CONSULTATION: 04/15/2019 REASON FOR EVALUATION: Melena and anemia. HISTORY OF PRESENT ILLNESS: The patient is an 84-year-old who presented to the hospital with melena. She had 3 episodes starting on 04/13/2019 and yesterday presented to the hospital where she was noted to be anemic with a hemoglobin of 10.1. She reports no specific abdominal pain. She does have a history of collagenous colitis and is on budesonide chronically. She also takes Eliquis for factor V Leiden disorder. She takes no aspirin or nonsteroidals. She did have a CT scan as an evaluation in the Emergency Room, which showed possible gastritis. GI consultation has been requested. Her Eliquis has been held and she has been started on Protonix drip. PAST MEDICAL HISTORY: Remarkable for hypertension, hyperlipidemia, collagenous colitis, depression, osteoarthritis with compression fractures at L2. She has factor V Leiden condition as well. MEDICATIONS: Per list. ALLERGIES: None. FAMILY HISTORY: Not significant. SOCIAL HISTORY: The patient is and lives with her spouse. Former smoker. Consumes wine and medical marijuana. REVIEW OF SYSTEMS: Positive for dry eyes and nosebleed few days before presenting to the hospital. PHYSICAL EXAMINATION: GENERAL: The patient appears somewhat frail, but in no acute distress. VITAL SIGNS: Blood pressure is 130/65, pulse 62. She is afebrile. ABDOMEN: Soft and nontender. The patient underwent an EGD today which showed a normal esophagus and duodenum. The stomach showed 4 gastric ulcers in the antrum, one was quite deep on the anterior wall, but there was no stigmata of bleeding and no blood anywhere in the upper digestive tract. IMPRESSION AND PLAN: The patient has gastric antral ulcers of unclear etiology. She is not taking any aspirin or nonsteroidals. Currently, there is no signs of bleeding. At this point, I would continue Protonix and hold her Eliquis for another 3 days. If she does not have any more active bleeding, then we can resume Eliquis and continue her proton pump inhibitor orally. She should be on a bland diet and will check a stool for H. pylori and get a fasting serum gastrin level. We will continue to follow the patient. [facility]
--- NOTE | 2019-04-15 16:57 | Hospitalist Progress Note ---
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 She has no hx of this prior. She had no abd pain, n/v with any of this. She feels at her usual at present. She has diarrhea at baseline and this is unchanged. She is awaiting EGD during our discussion. Pt denies fever, SOB, chest pain, LE pain or swelling. Review of Systems Review of Systems: Pertinent positives and negatives reviewed in HPI--all others negative Physical Exam Constitutional: WD/WN, vitals as above Eyes: normal visual kapoor by confrontation and + anicteric sclerae Neck: normal visual inspection and trachea midline Respiratory: normal respiratory effort, lungs clear to auscultation Cardiovascular: Rate/Rhythm: regular rate and regular rhythm Gastrointestinal (Abdomen): Inspection/Auscultation: abdomen not distended Percussion/Palpation: abdomen soft; abdomen nontender Musculoskeletal: Head/Neck/Chest: normocephalic and head atraumatic negative for edema, peripheral pulses intact Skin: no rashes, warm and dry Neurologic: awake; not confused Speech / Cognition: normal speech Psychiatric: A+Ox3, euthymic affect Results & Data Vital Signs (Past 12 Hours) Vital Signs Temp Pulse Pulse Resp BP BP Pulse Ox 04/15/19 16:38 36.6 C 61 20 194/100 H 96 04/15/19 16:13 60 16 160/81 H 96 04/15/19 15:58 62 16 146/71 H 98 04/15/19 15:43 61 16 137/68 96 04/15/19 14:42 36.8 C 59 L 20 170/73 H 97 04/15/19 12:13 37 C 57 L 18 167/82 H 97 04/15/19 08:20 36.7 C 55 L 20 146/67 H 93 04/15/19 08:00 64 04/15/19 07:47 61 PG Care Time/CCT Total # of Minutes Spent Total Time Spent with Patient: Total time spent is greater than 50% in coordination of care (as documented) at patient's floor/unit and/or counseling patient: (1) Anemia Anemia type: unspecified type Qualified Code(s): D64.9 - Anemia, unspecified
[2019-04-15] MEDS: PRAVASTATIN SOD 20 MG TAB PO SCH (20:06)
[2019-04-15] MEDS: METOPROLOL TARTRATE 50 MG TAB PO SCH (20:08)
[2019-04-16] MEDS: PANTOprazole 40 MG in DEXTROSE 5% 100 ML IV SCH ×3 (04:42→14:02)
[2019-04-16 07:48] LABS: Basophils # (auto) 0.01 K/uL (0-0.2); Basophils % (auto) 0.2 %; Hematocrit (blood only) 29.8 % (37-47); Hemoglobin 9.9 g/dL (12.0-16.0); Immature Granulocytes # (auto) 0.02 K/uL (0.00-0.02); Immature Granulocytes % (auto) 0.5 %; Lymphocytes # (auto) 1.05 K/uL (1.2-3.4); Lymphocytes % (auto) 24.9 %; Mean Corpuscular Hemoglobin 35.4 pg (25-34); Mean Corpuscular Hgb Conc 33.2 g/dL (32-36); Mean Corpuscular Volume 106.4 fL (80-100); Mean Platelet Volume 10.9 fL (7.4-10.4); Monocytes # (auto) 0.77 K/uL (0.11-0.59); Monocytes % (auto) 18.2 %; Neutrophils # (auto) 2.37 K/uL (1.4-6.5); Neutrophils % (auto) 56.2 %; Platelet Count 176 K/uL (130-400); RDW Coefficient of Variation 13.7 % (11.5-14.5); RDW Standard Deviation 52.5 fL (36.4-46.3); White Blood Count 4.22 K/uL (4.8-10.8)
[2019-04-16] MEDS: TRAMADOL HCL 50 MG TABLET PO SCH (08:49)
[2019-04-16] MEDS: METOPROLOL TARTRATE 100 MG TAB PO SCH (08:49)
[2019-04-16] MEDS: SUCRALFATE 1 GM/10 ML UDC PO SCH ×2 (08:50→14:01)
[2019-04-16] MEDS: GABAPENTIN 300 MG CAP PO SCH ×2 (08:50→14:02)
[2019-04-16] MEDS: SODIUM CHLORIDE 0.9% 1000ML 1,000 ML IV SCH (08:50)
[2019-04-16] MEDS: ESCITALOPRAM OXALATE 20 MG TAB PO SCH (08:50)
[2019-04-16 13:10] LABS: Hematocrit (blood only) 32.8 % (37-47); Hemoglobin 10.9 g/dL (12.0-16.0)
--- NOTE | 2019-04-16 14:21 | Discharge Summary ---
Date of Service April 16, 2019 Admission HPI Per Admitting Provider For EGD Principal Diagnosis Pt is doing well. Still without abd pain. Stools are still dark but less than prior. Pt denies fever, SOB, chest pain, n/v, LE pain or swelling. Pt states that she gets some mild R ankle swelling if she is on her feet for a long time and that this is a consistent occurence for her. Discharge Exam Constitutional WD/WN, vitals as above Eyes normal visual kapoor by confrontation and + anicteric sclerae Neck normal visual inspection and trachea midline Respiratory normal respiratory effort, lungs clear to auscultation Cardiovascular Rate/Rhythm: regular rate and regular rhythm Gastrointestinal (Abdomen) Inspection/Auscultation: abdomen not distended Percussion/Palpation: abdomen soft; abdomen nontender Musculoskeletal Head/Neck/Chest: normocephalic and head atraumatic Skin no rashes, warm and dry Neurologic awake; not confused Speech / Cognition: normal speech Psychiatric A+Ox3, euthymic affect Discharge Data Allergies Allergy/AdvReac Type Severity Reaction Status Date / Time No Known Allergies Allergy Verified 04/14/19 16:18 Consultations 04/14/19 17:05 ED Decision to Admit Stat 04/14/19 23:31 Consult Gastroenterology Routine Procedures Performed Operation Date: 04/15/19 15:30 Actual Procedures p Esophagogastroduodenoscopy - Juan J Goff Ordered Studies 04/14/19 16:00 CT abd pelvis IV con only Stat Hospital Course (1) 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 upper 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 noted for gastric ulcer x4 but without active bleeding Hpylori, gastrin pending Protonix BID x8 weeks Carafate schedule Holding eliquis until 04/18 (last dose was 1/6 AM) ADAT hemoccult + Hb with initial slight drop but stabilized, 10.9 on d/c CTAP on admission noted for gastritis Pitt diet x1 week F/U GI in 1 week (2) Anemia: Monitor as above (3) Chronic diarrhea: Stable (4) On anticoagulant therapy: (5) Factor 5 Leiden mutation, heterozygous: Holding eliquis for above Pt advised to monitor for LE swelling and pain or SOB or chest pain and to seek care if this develops (6) Hypertension: continue home meds (7) Compression fracture: Noted on CTAP Asx Add calcitonin if pain develops (8) DVT prophylaxis: SCDs given above Total Time Total Time Spent Total Time Spent (In Minutes): >30 Total Time Includes: Examination of the Patient, Discharge Planning, Medication Reconciliation, Communication With Other Providers and Other Discharge Plan Discharge Items Patient Disposition: Home - Self-Care Reason For Visit: MELENA Discharge Diagnosis: Gastric ulcers Activity: Resume your previous activity Non-emergency contact: Primary Care Provider and Juice Weigher Call non-emergency contact if: you have any medication questions and your symptoms worsen Follow-up/Referrals: Senia Bangura CRNP [Primary Care Provider] - Diet: Regular Diet Comment: Pitt diet as below Addtl Attending Provider Instructions: You should hold your eliquis until Sunday to allow your stomach time to heal. This does increase your risk for a blood clot. You should come to the ED if you have any changes in swelling in your arms or legs, chest pain, or any new trouble breathing to make sure that you do not have a blood clot. You should use a bland diet for the next week to allow your stomach time to heal. Refer to the handout that I gave you on discharge or call if there are questions. You should follow up with Dr. Goff in 1 week You should follow up with your PCP in the next 1-2 weeks Pending Studies at Discharge: Yes Studies:: Hpylori, gastrin Stand-Alone Forms: My [facility] [employer], Smoking Cessation Medications and DC Order Prescriptions: New sucralfate 1 gram tablet 1 g PO QID Qty: 30 RF: 0 pantoprazole [Protonix] 40 mg tablet,delayed release (DR/EC) 40 mg PO BID Qty: 60 RF: 1 Continued losartan 100 mg tablet 100 mg PO DAILY RF: 0 metoprolol tartrate 50 mg tablet 50 mg PO HS RF: 0 ergocalciferol (vitamin D2) 2,500 unit capsule 2,500 units PO DAILY RF: 0 tramadol 50 mg tablet 50 mg PO .BID-TID Qty: 60 RF: 0 gabapentin 300 mg capsule 300 mg PO TID Qty: 90 RF: 2 triamcinolone acetonide 0.1 % cream 1 appln TOP .COMPLEX RF: 0 pravastatin 20 mg tablet 20 mg PO HS RF: 0 budesonide 3 mg capsule,delayed,extend.release 3 mg PO DAILY RF: 0 spironolactone 50 mg tablet 50 mg PO DAILY RF: 0 escitalopram oxalate 20 mg tablet 20 mg PO DAILY RF: 0 mesalamine 1.2 gram tablet,delayed release (DR/EC) 2.4 mg PO DAILY RF: 0 metoprolol tartrate 25 mg tablet 100 mg PO DAILY RF: 0 Eliquis 5 mg tablet 5 mg PO BID Qty: 180 RF: 3 Discharge Orders: Discharge Order (Routine); Ordered 04/16/19 Ordered By: Charmaine Cody Admission Data Admit Date/Time: 04/15/19 16:57 Attending Provider: Charmaine Cody Admit Provider: Huseyin Rocha Primary Care Provider: Senai Bangura Other Providers: Andrew Kent ; Juan J Goff Other Interventions: Discharge Summary Assessment (RN) Last Done: 04/16/19 14:22 DC Date/Time DO NOT enter until pt leaves facility: 04/16/19 15:29
--- NOTE | 2019-04-18 14:28 | GI REPORT ---
Patient Name: Obdulia Charles Procedure Date: 04/15/2019 3:26 PM Date of : 1935 Admit Type: Inpatient Age: 84 Gender: Female Attending MD: Juan J Goff MD Procedure: Upper GI endoscopy Providers: Juan J Goff MD Referring MD: Charmaine Cody Indications: Acute post hemorrhagic anemia, Melena Medicines: Propofol total dose 150 mg IV, Lidocaine 40 mg IV Complications: No immediate complications. Estimated Blood Loss: Estimated blood loss: none. Procedure: Pre-Anesthesia Assessment: - Prior to the procedure, a History and Physical was performed, and patient medications, allergies and sensitivities were reviewed. The patient's tolerance of previous anesthesia was reviewed. - The risks and benefits of the procedure and the sedation options and risks were discussed with the patient. All questions were answered and informed consent was obtained. - The risks and benefits of the procedure and the sedation options and risks were discussed with the patient. All questions were answered and informed consent was obtained. After obtaining informed consent, the endoscope was passed under direct vision. Throughout the procedure, the patient's blood pressure, pulse, and oxygen saturations were monitored continuously. The Endoscope was introduced through the mouth, and advanced to the second part of duodenum. The upper GI endoscopy was accomplished without difficulty. The patient tolerated the procedure well. Findings: The Z-line was regular and was found 37 cm from the incisors. The examined esophagus was normal. Four non-bleeding cratered gastric ulcers with pigmented material were found in the gastric antrum. The largest lesion was 12 mm in largest dimension. The examined duodenum was normal. Impression: - Z-line regular, 37 cm from the incisors. - Normal esophagus. - Non-bleeding gastric ulcers with pigmented material. - Normal examined duodenum. - No specimens collected. Recommendation: - [facility] patient to [facility] care. Juan J Goff M.D. Juan J Goff MD 04/15/2019 3:50:14 PM Note Initiated On: 04/15/2019 3:26 PM Number of Addenda: 0 I attest to the content of the Intraoperative Record and orders documented therein, exceptions below {[id number]}
--- NOTE | 2019-04-21 05:43 | Electrocardiogram Report ---
Test Reason : Blood Pressure : / mmHG Vent. Rate : 057 BPM Atrial Rate : 057 BPM P-R Int : 152 ms QRS Dur : 088 ms QT Int : 452 ms P-R-T Axes : 024 -24 014 degrees QTc Int : 439 ms Poor data quality, interpretation may be adversely affected Sinus bradycardia Nonspecific T wave abnormality Abnormal ECG When compared with ECG of 29-JUN-2016 12:35, Vent. rate has decreased BY 32 BPM Confirmed by Danny Adame ([id number]) on 04/15/2019 9:38:27 AM Referred By: REFERRED SELF Confirmed By:Danny Adame
--- NOTE | 2019-04-21 12:55 | Coding Query ---
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 Please assist us with the question(s) below: Coding Question(s): Patient admitted with melena. EGD revealed non-bleeding gastric ulcers in setting of anemia. Please document, if known or suspected, the etiology of the melena. Thank you! Jose Luis Ann [facility] Physician's Response(s): The etiology of the melena is likely the gastric ulcers. Principal Diagnosis: "that condition established after study, to be chiefly responsible for occasioning the admission of the patient to the hospital for care." Co-Existing Principal Diagnosis: "when two or more diagnoses equally meet the criteria for principal diagnosis as determined by the circumstances of admission, diagnostic work up, and/or therapy provided, and the Alphabetic Index, Tabular List, or another coding guideline does not provide sequencing direction, any one of the diagnoses may be sequenced first." "When the physician has documented what appears to be a current diagnosis in the body of the record, but has not included the diagnosis in the final diagnostic statement, the physician should be asked whether the diagnosis should be added." ([facility] 2 QTR90. p3-4) [facility]
== END 2019-04-16 15:29 | disposition home or self-care (01) | DRG 378 ==
LOC: ED 14:38 → 2N 14:38 → SUATTDRO 18:47 → 2N 19:29

== ENCOUNTER 2021-08-15 20:34 | Inpatient (IN) ==
[2021-08-15] MEDS ORDERED: cefTRIAXone SODIUM 1,000 MG/50 ML BAG IV STA (21:39)
[2021-08-15 22:27] LABS: Basophils # (auto) 0.01 K/uL (0-0.2); Basophils % (auto) 0.2 %; Hemoglobin 12.8 g/dL (12.0-16.0); Immature Granulocytes # (auto) 0.01 K/uL (0.00-0.02); Immature Granulocytes % (auto) 0.2 %; Lymphocytes # (auto) 1.32 K/uL (1.2-3.4); Lymphocytes % (auto) 20.3 %; Mean Corpuscular Hemoglobin 33.1 pg (25-34); Mean Corpuscular Hgb Conc 33.7 g/dL (32-36); Mean Corpuscular Volume 98.2 fL (80-100); Mean Platelet Volume 12.3 fL (7.4-10.4); Monocytes # (auto) 1.07 K/uL (0.11-0.59); Monocytes % (auto) 16.5 %; Neutrophils # (auto) 4.08 K/uL (1.4-6.5); Neutrophils % (auto) 62.8 %; Platelet Count 193 K/uL (130-400); RDW Coefficient of Variation 13.3 % (11.5-14.5); RDW Standard Deviation 47.6 fL (36.4-46.3); Red Blood Count 3.87 M/uL (4.2-5.4); White Blood Count 6.49 K/uL (4.8-10.8)
[2021-08-15 23:13] LABS: Albumin Globulin Ratio 1.4 (0.9-2); Albumin Level 3.8 gm/dl (3.4-5.0); BUN Creatinine Ratio 10.2 (10-20); Bilirubin,Total 1.6 mg/dl (0.2-1.0); C Reactive Protein 0.98 mg/dl (0-0.5); Calcium 8.7 mg/dl (8.5-10.1); Creatinine Clr Calc Pharmacy 23.7 ml/min; Est GFR (African American) 37.1 ml/min; Globulin 2.7 gm/dl (2.5-4.0); Magnesium 1.1 mg/dl (1.7-2.4); Potassium 3.8 mmol/L (3.5-5.1); Total Protein 6.5 gm/dl (6.0-8.3)
[2021-08-15] MEDS ORDERED: VANCOMYCIN HCL 1,250 MG in SODIUM CHLORIDE 0.9% 500 ML IV ONE (23:36)
[2021-08-15] MEDS ORDERED: VANCOMYCIN CONSULT ACTIVE PRN (23:36)
[2021-08-15] MEDS ORDERED: LORazepam 2 MG/1 ML VIAL IV STA (23:41)
[2021-08-16] MEDS: MAGNESIUM SULFATE / D5W 1 GM/100 ML BAG IV SCH ×4 (00:11→11:18)
--- NOTE | 2021-08-16 00:15 | Emergency Department Note ---
History of Present Illness General Chief complaint: Finger Pain Stated complaint: SWOLLEN LAST TWO FINGERS ON L HAND Time Seen by Provider: 08/15/21 21:28 History of Present Illness This 86-year-old presents to the ER complaining of hand infection Location: Hand Quality: Swollen Severity: Moderate Duration: Today Timing: Today Context: Patient and family were concerned and came in Modifying factors: better with nothing; worse with activity Tetanus is current. Patient went to urgent care and was sent here. Patient denies trauma, fever, chills, flulike illness. Home Medications Medication Instructions Recorded Confirmed Type escitalopram oxalate 20 mg tablet 20 mg PO QAM 02/17/18 05/26/21 History losartan 100 mg tablet 100 mg PO QAM 07/08/18 05/26/21 History spironolactone 50 mg tablet 25 mg PO QAM tab 11/04/19 05/26/21 History pravastatin 20 mg tablet 20 mg PO QAM 03/10/20 05/26/21 History pantoprazole 40 mg tablet,delayed 40 mg PO QAM tab 03/31/20 05/26/21 History release (Protonix) metoprolol tartrate 50 mg tablet 50 mg PO HS tab 02/21/21 05/26/21 History apixaban 5 mg tablet (Eliquis) 5 mg PO BID #90 tab 06/27/21 Rx Allergies Allergy/AdvReac Type Severity Reaction Status Date / Time No Known Drug Allergies Allergy Verified 05/26/21 11:02 Past Med/Surg History Medical History (Updated 08/16/21 @ 00:19 by Alesia Grider PA-C) Anxiety Chronic diarrhea ON MESALAMINE Collagenous colitis Deep vein thrombosis R LEG Degenerative disc disease Factor 5 Leiden mutation, heterozygous Hypertension Lumbago Lumbar canal stenosis Multilevel On anticoagulant therapy ELIQUIS Osteoarthritis Pulmonary embolism BILT---REASON FOR ELIQUIS Right lumbar radiculitis Surgical History H/O bilateral cataract extraction History of blepharoplasty BILT History of colonoscopy History of tonsillectomy and adenoidectomy History of tooth extraction ALL UPPER TEETH History of total abdominal hysterectomy and bilateral salpingo-oophorectomy Status post right hip replacement Family History Other No significant family history Social History Smoking Status: Former smoker Tobacco Type: Cigarettes Cigarettes Per Day: last smoke 1975; Second Hand Exposure: No; Hx Alcohol Use: Yes Alcohol type: wine Hx Substance Use: Yes (medical mariguana) Last Used Substance Other:: two weeks ago Substance Use Type Other:: medical marijuana card Preferred Language: Peruvian Communication Ability: Effective Visual Impairment: No Limitations 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: Normal Wastewater Analyst Lab Analyst Required: No Beliefs That Will Affect Care: None marital status: Current Living Situation: Spouse current occupational status: retired Feels Safe at Home: Yes Assistive Devices: Walker Review of Systems A total of 10 systems reviewed and were otherwise negative Physical Exam Vital Signs Vital Signs - 24 hr 08/15/21 20:48 08/15/21 22:00 08/15/21 22:29 Temperature 36.6 C Temperature Source Temporal Artery Scan Pulse Rate 66 Pulse Rate [Apical] 68 Respiratory Rate 20 20 Respiratory Effort / Characteristics Non-Labored Non-Labored Spontaneous Respiratory Depth Normal Blood Pressure 217/108 H Blood Pressure [Left Arm] 230/103 H Blood Pressure Mean 144 Blood Pressure Mean [Left Arm] 145 Blood Pressure Position Sitting Pulse Oximetry 95 96 96 Oxygen Delivery Method Room Air Room Air Room Air Sepsis Recent Fever Within 48 Hours No Sepsis New/Unexplained Change in Mental Status N/A Sepsis Action Taken by Nursing No Action Required 08/15/21 23:01 08/16/21 00:01 Temperature Temperature Source Pulse Rate 59 L 57 L Pulse Rate [Apical] Respiratory Rate 24 24 Respiratory Effort / Characteristics Respiratory Depth Blood Pressure 209/99 H 199/98 H Blood Pressure [Left Arm] Blood Pressure Mean 135 131 Blood Pressure Mean [Left Arm] Blood Pressure Position Pulse Oximetry 94 96 Oxygen Delivery Method Room Air Room Air Sepsis Recent Fever Within 48 Hours Sepsis New/Unexplained Change in Mental Status Sepsis Action Taken by Nursing VITALS: Vitals are noted on the nurse's note and reviewed by myself. Vital signs stable. GENERAL: Pleasant elderly female anxious appearing, in no acute distress, nondia phoretic, well-developed well-nourished. SKIN: Left hand pinky finger erythematous and edematous extending to the hand concerning for infection, the rest of the skin was without rashes, erythema, edema, or bruising. There is no tenting of the skin. Capillary reflex less than 2 seconds. HEAD: Normocephalic atraumatic. EARS: External auditory canals clear EYES: Pupils equal round and reactive to light and accommodation. Conjunctivae without injection, sclerae without icterus. Extraocular movements intact. NOSE: Patent, turbinates without inflammation or discharge MOUTH: Mucous membranes moist. Pharynx without erythema or exudate. Uvula midline. Airway patent. Tongue does not deviate. NECK: Supple without nuchal rigidity. No lymphadenopathy. No thyromegaly. Cervical spine is nontender. No JVD. HEART: Regular rate and rhythm LUNGS: Clear to auscultation bilaterally without wheezes, rales or rhonchi. No retractions or accessory muscle use. ABDOMEN: Positive bowel sounds x 4. Normal tympanic percussion. Soft, nontender, without masses or organomegaly. Paulino sign negative. No guarding or rebound tenderness. No CVA tenderness MUSCULOSKELETAL: No muscle atrophy, noted. Left fifth finger erythematous and edematous concerning for infection. Patient is able to fully extend and flex the finger. NEURO: Patient was alert and oriented to person place and time. Normal sensation to light and sharp touch. No focal neurological deficits. Course Administered Medications Magnesium Sulfate/Dextrose (Magnesium Sulfate / D5w) 1 gm in 100 mls @ 200 mls/hr IV Q30M [facility] Stop: 08/16/21 00:34 Last Admin: 08/16/21 00:11 Dose: 200 mls/hr Documented by: [id number] Vancomycin HCl 1,250 mg/ (Sodium Chloride) 525 mls @ 200 mls/hr IV NOW ONE Stop: 08/16/21 02:13 Last Admin: 08/16/21 00:10 Dose: 200 mls/hr Documented by: [id number] Discontinued Medications Ceftriaxone Sodium (Rocephin) 1,000 mg in 50 mls @ 100 mls/hr IV NOW STA Stop: 08/15/21 22:08 Last Infusion: 08/15/21 22:53 Dose: 0 mls/hr Documented by: [id number] Admin: 08/15/21 22:21 Dose: 100 mls/hr Documented by: [id number] Lorazepam (Lorazepam 2 Mg/1 Ml Vial) 0.5 mg IV NOW STA Stop: 08/15/21 23:42 Last Admin: 08/16/21 00:13 Dose: 0.5 mg Documented by: [id number] Medical Decision Making Medical Records Attestation: I reviewed the patient's medical records. Home Medications Current Medication List: was personally reviewed by me Laboratory Data Attestation: I reviewed the patient's lab results. Result diagrams: 08/15/21 22:00 08/15/21 22:00 Lab Results 08/15/21 08/15/21 08/15/21 Range/Units 22:00 22:00 22:00 WBC 6.49 (4.8-10.8) K/uL RBC 3.87 L (4.2-5.4) M/uL Hgb 12.8 (12.0-16.0) g/dL Hct 38.0 (37-47) % MCV 98.2 (80-100) fL MCH 33.1 (25-34) pg MCHC 33.7 (32-36) g/dL RDW Std Deviation 47.6 H (36.4-46.3) fL RDW Coeff of Gissell 13.3 (11.5-14.5) % Plt Count 193 (130-400) K/uL MPV 12.3 H (7.4-10.4) fL Immature Gran % (Auto) 0.2 % Neut % (Auto) 62.8 % Lymph % (Auto) 20.3 % [place] % (Auto) 16.5 % Eos % (Auto) 0.0 % Baso % (Auto) 0.2 % Neut # (Auto) 4.08 (1.4-6.5) K/uL Lymph # (Auto) 1.32 (1.2-3.4) K/uL [place] # (Auto) 1.07 H (0.11-0.59) K/uL Eos # (Auto) 0.00 (0-0.5) K/uL Baso # (Auto) 0.01 (0-0.2) K/uL Immature Gran # (Auto) 0.01 (0.00-0.02) K/uL ESR 22 (0-30) mm/hr Sodium 138 (136-145) mmol/L Potassium 3.8 (3.5-5.1) mmol/L Chloride 105 (98-107) mmol/L Carbon Dioxide 21 (21-32) mmol/L Anion Gap 12 H (3-11) BUN 15 (6-23) mg/dl Creatinine 1.47 H (0.6-1.2) mg/dl Est Cr Clr Drug Dosing 23.7 ml/min Est GFR ( Amer) 37.1 ml/min Est GFR (Non-Af Amer) 32.0 ml/min BUN/Creatinine Ratio 10.2 (10-20) Glucose 81 (70-99(Fasting)) mg/dl Lactate (0.4-2.0) mmol/L Calcium 8.7 (8.5-10.1) mg/dl Magnesium 1.1 L (1.7-2.4) mg/dl Total Bilirubin 1.6 H (0.2-1.0) mg/dl AST 19 (13-39) U/L ALT 12 (7-52) U/L Alkaline Phosphatase 66 (34-104) U/L C-Reactive Protein 0.98 H (0-0.5) mg/dl Total Protein 6.5 (6.0-8.3) gm/dl Albumin 3.8 (3.4-5.0) gm/dl Globulin 2.7 (2.5-4.0) gm/dl Albumin/Globulin Ratio 1.4 (0.9-2) SARS-CoV-2, RNA, NAAT (NEGATIVE) 08/15/21 08/15/21 Range/Units 22:00 22:20 WBC (4.8-10.8) K/uL RBC (4.2-5.4) M/uL Hgb (12.0-16.0) g/dL Hct (37-47) % MCV (80-100) fL MCH (25-34) pg MCHC (32-36) g/dL RDW Std Deviation (36.4-46.3) fL RDW Coeff of Gissell (11.5-14.5) % Plt Count (130-400) K/uL MPV (7.4-10.4) fL Immature Gran % (Auto) % Neut % (Auto) % Lymph % (Auto) % [place] % (Auto) % Eos % (Auto) % Baso % (Auto) % Neut # (Auto) (1.4-6.5) K/uL Lymph # (Auto) (1.2-3.4) K/uL [place] # (Auto) (0.11-0.59) K/uL Eos # (Auto) (0-0.5) K/uL Baso # (Auto) (0-0.2) K/uL Immature Gran # (Auto) (0.00-0.02) K/uL ESR (0-30) mm/hr Sodium (136-145) mmol/L Potassium (3.5-5.1) mmol/L Chloride (98-107) mmol/L Carbon Dioxide (21-32) mmol/L Anion Gap (3-11) BUN (6-23) mg/dl Creatinine (0.6-1.2) mg/dl Est Cr Clr Drug Dosing ml/min Est GFR ( Amer) ml/min Est GFR (Non-Af Amer) ml/min BUN/Creatinine Ratio (10-20) Glucose (70-99(Fasting)) mg/dl Lactate 0.8 (0.4-2.0) mmol/L Calcium (8.5-10.1) mg/dl Magnesium (1.7-2.4) mg/dl Total Bilirubin (0.2-1.0) mg/dl AST (13-39) U/L ALT (7-52) U/L Alkaline Phosphatase (34-104) U/L C-Reactive Protein (0-0.5) mg/dl Total Protein (6.0-8.3) gm/dl Albumin (3.4-5.0) gm/dl Globulin (2.5-4.0) gm/dl Albumin/Globulin Ratio (0.9-2) SARS-CoV-2, RNA, NAAT NEGATIVE (NEGATIVE) Imaging Data Attestation: I personally reviewed and interpreted this imaging study as follows: [facility] Narrative Prior records reviewed and summarized as above. Triage Nursing notes reviewed. Additional history obtained from family. The patient's history was concerning for swelling and redness of the skin. Differential diagnosis: Etiologies such as cellulitis, abscess, MRSA infection, DVT, necrotizing fasciitis, dermatitis, drug eruption, as well as others were entertained.. Physical examination: The physical examination was consistent with cellulitis ER treatment provided: Rocephin, vancomycin, magnesium On reassessment the patient felt better. Diagnostics interpreted by me: The labs revealed low magnesium. No worrisome leukocytosis Negative lactic Imaging studies: Finger x-ray negative for fracture, dislocation or foreign body per my interpretation Consultation: A consultation was placed with the hospitalist. The case was discussed and diagnostics were reviewed. The patient was evaluated in the ER for further treatment. This appears to be isolated cellulitis. This involve the whole finger extending to the hand. This is rapid in onset. She was started antibiotics. Medicine was consulted. She was able to fully extend and flex the finger. Unlikely to be tendon involvement at this time. Negative Kenagal sign. By the evaluation outlined above emergent etiologies such as abscess, necrotizing fasciitis, DVT, as well as others were deemed relatively unlikely. The pt informed about the findings as listed above. All questions were answered and pleased with the treatment. The chart was completed utilizing [employer] voice recognition software. G rammatical errors, random word insertions, pronoun errors, and incomplete sentences are an occassional consequence of this system due to software limitations, ambient noise, and hardware issues. Any formal questions or concerns about the content, text, or information contained within the body of th is dictation should be directly addressed to the physician central supply assistant for clarification. Impression & Plan Cellulitis of hand, Hypomagnesemia Discharge Plan Visit Data Chief Complaint: Finger Pain Stated Complaint: SWOLLEN LAST TWO FINGERS ON L HAND ED Provider: [facility] Midlevel Provider: Alesia Grider Discharge Problem: Cellulitis of hand, Hypomagnesemia Patient Disposition: Admitted As Inpatient Condition: Good Forms Stand Alone Forms: My [facility] Prescriptions Prescriptions: No Action losartan 100 mg tablet 100 mg PO QAM RF: 0 metoprolol tartrate 50 mg tablet 50 mg PO HS RF: 0 Eliquis 5 mg tablet 5 mg PO BID Qty: 90 RF: 3 pantoprazole [Protonix] 40 mg tablet,delayed release (DR/EC) 40 mg PO QAM RF: 0 spironolactone 50 mg tablet 25 mg PO QAM RF: 0 pravastatin 20 mg tablet 20 mg PO QAM RF: 0 escitalopram oxalate 20 mg tablet 20 mg PO QAM RF: 0 Referrals Referrals: Senia Bangura CRNP [Primary Care Provider] -
--- NOTE | 2021-08-16 01:09 | History & Physical Report ---
Date of Service August 16, 2021 Assessment & Plan (1) Cellulitis of hand: Plan: Continue vancomycin IV and ceftriaxone IV begun in the ED (2) Hypomagnesemia: Plan: Magnesium 1.1 upon admission Given 2 g magnesium replacement IV in ED, recheck laboratories in a.m. (3) On anticoagulant therapy: Plan: Chronic anticoagulation with apixaban/factor V Leiden/DVT/PE- Continue apixaban (4) Deep vein thrombosis: Plan: See above (5) Factor 5 Leiden mutation, heterozygous: Plan: See above (6) Pulmonary embolism: Plan: See above (7) Stomach ulcer: Plan: Continue pantoprazole (8) Anxiety: Plan: Continue escitalopram (9) Hypertension: Plan: Continue losartan, metoprolol tartrate and spironolactone History of Present Illness Chief Complaint: The patient presents to the emergency department with complaint of left fifth finger redness, warmth and swelling over the past 24 hours Primary Care Provider: LUIS Mcgovern The patient is a 86-year-old female with a past medical history including skin tears, CAD, compression fracture, acute upper GI bleeding secondary to stomach ulcer, gastritis, factor V Leiden, DVT, PE, anxiety, hypertension, long-term anticoagulant therapy. She presents as noted above. She has very cellophane type skin, and notes a abrasion at the base of her fifth MCP where she thinks the redness began. Allergies Allergy/AdvReac Type Severity Reaction Status Date / Time No Known Drug Allergies Allergy Verified 05/26/21 11:02 Home Medications Medication Instructions Recorded Confirmed Type escitalopram oxalate 20 mg tablet 20 mg PO QAM 02/17/18 05/26/21 History losartan 100 mg tablet 100 mg PO QAM 07/08/18 05/26/21 History spironolactone 50 mg tablet 25 mg PO QAM tab 11/04/19 05/26/21 History pravastatin 20 mg tablet 20 mg PO QAM 03/10/20 05/26/21 History pantoprazole 40 mg tablet,delayed 40 mg PO QAM tab 03/31/20 05/26/21 History release (Protonix) metoprolol tartrate 50 mg tablet 50 mg PO HS tab 02/21/21 05/26/21 History apixaban 5 mg tablet (Eliquis) 5 mg PO BID #90 tab 06/27/21 Rx Past Med/Surg History Medical History (Updated 08/16/21 @ 00:19 by Alesia Grider PA-C) Anxiety Chronic diarrhea ON MESALAMINE Collagenous colitis Deep vein thrombosis R LEG Degenerative disc disease Factor 5 Leiden mutation, heterozygous Hypertension Lumbago Lumbar canal stenosis Multilevel On anticoagulant therapy ELIQUIS Osteoarthritis Pulmonary embolism BILT---REASON FOR ELIQUIS Right lumbar radiculitis Surgical History H/O bilateral cataract extraction History of blepharoplasty BILT History of colonoscopy History of tonsillectomy and adenoidectomy History of tooth extraction ALL UPPER TEETH History of total abdominal hysterectomy and bilateral salpingo-oophorectomy Status post right hip replacement Family History Other No significant family history Social History Smoking Status: Former smoker Tobacco Type: Cigarettes Cigarettes Per Day: last smoke 1975; Smoking End Date: 1975; Second Hand Exposure: No; Hx Alcohol Use: Yes Alcohol type: wine Hx Substance Use: No Preferred Language: Portuguese Communication Ability: Effective Visual Impairment: No Limitations 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: Normal Rfid Analyst Required: No Beliefs That Will Affect Care: None marital status: Current Living Situation: Alone current occupational status: retired Other Information That Helps Us Care for You: No Feels Safe at Home: Yes Safety Concerns: Feels Safe At This Time Assistive Devices: Denture - Upper Review of Systems Review of Systems: The patient denies chest pain, palpitations, shortness of breath, dyspnea on exertion, cough, lower extremity swelling, sore throat, fevers, chills, sweats, weight change, fatigue, nausea, vomiting, diarrhea , constipation, abdominal pain, pelvic pain, blood in urine or stool, dysuria, urinary frequency or urgency, lightheadedness, dizziness, headache, memory loss, loss of consciousness, imbalance, focal or generalized weakness, numbness or tingling in arms or legs, generalized arthralgias or myalgias, back or neck pain, or night sweats. The review of systems is otherwise negative other than for that already noted above, and at least 10 systems have been reviewed. Physical Exam Physical Exam: The patient is awake, alert and oriented 3, well developed and well nourished, normocephalic and atraumatic, lying in bed and in no acute distress. HEENT--PERRL, EOMI, mucous membranes and oropharynx normal. Neck--supple. No JVD. No bruits. Thyroid normal, trachea midline, no adenopathy. Heart--normal S1 and S2. No murmurs, rubs or gallops. Lungs--clear bilaterally, no respiratory distress, no accessory muscle use. Abdomen--normal bowel sounds and soft. Nontender. Nondistended, no hernias or masses, no organomegaly. Extremities--left hand with fifth finger with erythema and warmth from MCP through distally to proximal phalanx Dermatologic--normal skin turgor, normal color, no abnormal lymph nodes, Neurologic--cranial nerves II through XII grossly intact. Rheumatologic--normal range of motion. Psychiatric--normal affect. Results & Data Results & Data ([facility]) Vital Signs (Past 12 Hours) Vital Signs Temp Pulse Pulse Resp BP BP Pulse Ox 08/16/21 00:30 60 24 196/103 H 95 08/16/21 00:01 57 L 24 199/98 H 96 08/15/21 23:01 59 L 24 209/99 H 94 08/15/21 22:29 68 20 230/103 H 96 08/15/21 22:00 96 08/15/21 20:48 36.6 C 66 20 217/108 H 95 Laboratory Results Laboratory Results WBC 6.49 K/uL (4.8-10.8) 08/15/21 22:00 RBC 3.87 M/uL (4.2-5.4) L 08/15/21 22:00 Hgb 12.8 g/dL (12.0-16.0) 08/15/21 22:00 Hct 38.0 % (37-47) 08/15/21 22:00 MCV 98.2 fL (80-100) 08/15/21 22:00 MCH 33.1 pg (25-34) 08/15/21 22:00 MCHC 33.7 g/dL (32-36) 08/15/21 22:00 RDW Std Deviation 47.6 fL (36.4-46.3) H 08/15/21 22:00 RDW Coeff of Gissell 13.3 % (11.5-14.5) 08/15/21 22:00 Plt Count 193 K/uL (130-400) 08/15/21 22:00 MPV 12.3 fL (7.4-10.4) H 08/15/21 22:00 Immature Gran % (Auto) 0.2 % 08/15/21 22:00 Neut % (Auto) 62.8 % 08/15/21 22:00 Lymph % (Auto) 20.3 % 08/15/21 22:00 [place] % (Auto) 16.5 % 08/15/21 22:00 Eos % (Auto) 0.0 % 08/15/21 22:00 Baso % (Auto) 0.2 % 08/15/21 22:00 Neut # (Auto) 4.08 K/uL (1.4-6.5) 08/15/21 22:00 Lymph # (Auto) 1.32 K/uL (1.2-3.4) 08/15/21 22:00 [place] # (Auto) 1.07 K/uL (0.11-0.59) H 08/15/21 22:00 Eos # (Auto) 0.00 K/uL (0-0.5) 08/15/21 22:00 Baso # (Auto) 0.01 K/uL (0-0.2) 08/15/21 22:00 Immature Gran # (Auto) 0.01 K/uL (0.00-0.02) 08/15/21 22:00 ESR 22 mm/hr (0-30) 08/15/21 22:00 Sodium 138 mmol/L (136-145) 08/15/21 22:00 Potassium 3.8 mmol/L (3.5-5.1) 08/15/21 22:00 Chloride 105 mmol/L (98-107) 08/15/21 22:00 Carbon Dioxide 21 mmol/L (21-32) 08/15/21 22:00 Anion Gap 12 (3-11) H 08/15/21 22:00 BUN 15 mg/dl (6-23) 08/15/21 22:00 Creatinine 1.47 mg/dl (0.6-1.2) H 08/15/21 22:00 Est Cr Clr Drug Dosing 23.7 ml/min 05 22:00 Est GFR ( Amer) 37.1 ml/min 08/15/21 22:00 Est GFR (Non-Af Amer) 32.0 ml/min 08/15/21 22:00 BUN/Creatinine Ratio 10.2 (10-20) 08/15/21 22:00 Glucose 81 mg/dl (70-99(Fasting)) 08/15/21 22:00 Lactate 0.8 mmol/L (0.4-2.0) 08/15/21 22:00 Calcium 8.7 mg/dl (8.5-10.1) 08/15/21 22:00 Magnesium 1.1 mg/dl (1.7-2.4) L 08/15/21 22:00 Total Bilirubin 1.6 mg/dl (0.2-1.0) H 08/15/21 22:00 AST 19 U/L (13-39) 08/15/21 22:00 ALT 12 U/L (7-52) 08/15/21 22:00 Alkaline Phosphatase 66 U/L (34-104) 08/15/21 22:00 C-Reactive Protein 0.98 mg/dl (0-0.5) H 08/15/21 22:00 Total Protein 6.5 gm/dl (6.0-8.3) 08/15/21 22:00 Albumin 3.8 gm/dl (3.4-5.0) 08/15/21 22:00 Globulin 2.7 gm/dl (2.5-4.0) 08/15/21 22:00 Albumin/Globulin Ratio 1.4 (0.9-2) 08/15/21 22:00 SARS-CoV-2, RNA, NAAT NEGATIVE (NEGATIVE) 08/15/21 22:20 Code Status & VTE Plan Code Status DNR/DNI VTE Prophylaxis Plan VTE Prophylaxis will be ordered: Yes PG Care Time/CCT Total # of Minutes Spent Total Time Spent with Patient: Total time spent is greater than 50% in coordination of care (as documented) at patient's floor/unit and/or counseling patient: Coding Level of Care Code 52633 Initial Inpt Care Lvl 3 Diagnoses Cellulitis of hand L03.119 Hypomagnesemia E83.42 On anticoagulant therapy Z79.01 Deep vein thrombosis I82.409 Factor 5 Leiden mutation, heterozygous D68.51 Pulmonary embolism I26.99 Stomach ulcer K25.9 Anxiety F41.9 Hypertension I10 Hypertension type: primary hypertension (1) Hypertension Hypertension type: primary hypertension Qualified Code(s): I10 - Essential (primary) hypertension
[2021-08-16] MEDS ORDERED: VANCOMYCIN CONSULT ACTIVE PRN (03:07)
[2021-08-16] MEDS ORDERED: ACETAMINOPHEN 325 MG TAB PO PRN (03:07)
[2021-08-16] MEDS ORDERED: ONDANSETRON INJ 2 MG/ML 2 ML VIAL IV PRN (03:07)
[2021-08-16] MEDS: APIXABAN 5 MG TABLET PO SCH ×2 (04:58→08:45)
[2021-08-16 07:06] LABS: Basophils # (auto) 0.01 K/uL (0-0.2); Basophils % (auto) 0.2 %; Hematocrit (blood only) 34.3 % (37-47); Hemoglobin 11.7 g/dL (12.0-16.0); Immature Granulocytes # (auto) 0.01 K/uL (0.00-0.02); Immature Granulocytes % (auto) 0.2 %; Lymphocytes # (auto) 1.44 K/uL (1.2-3.4); Lymphocytes % (auto) 27.4 %; Mean Corpuscular Hemoglobin 33.6 pg (25-34); Mean Corpuscular Hgb Conc 34.1 g/dL (32-36); Mean Corpuscular Volume 98.6 fL (80-100); Mean Platelet Volume 12.1 fL (7.4-10.4); Monocytes # (auto) 1.04 K/uL (0.11-0.59); Monocytes % (auto) 19.8 %; Neutrophils # (auto) 2.76 K/uL (1.4-6.5); Neutrophils % (auto) 52.4 %; Platelet Count 166 K/uL (130-400); RDW Coefficient of Variation 12.9 % (11.5-14.5); RDW Standard Deviation 46.1 fL (36.4-46.3); Red Blood Count 3.48 M/uL (4.2-5.4); White Blood Count 5.26 K/uL (4.8-10.8)
--- NOTE | 2021-08-16 07:28 | XRay Report ---
LEFT FIFTH FINGER 3 VIEWS CLINICAL HISTORY: Fifth finger pain. Infection. FINDINGS: 3 views of the left fifth finger are obtained. No prior studies are available for compariso n at the time of dictation. The skeletal structures are osteopenic. No fracture is seen. There is no bony erosion or periostitis. Osteoarthritic change is seen throughout the fifth digit. This is greate st at the distal interphalangeal joint where there is erosive osteoarthritis. Mild soft tissue edema is present throughout the fifth digit. Atherosclerotic calcification is noted in the regional arterie s. No soft tissue gas or radiodense foreign body is identified. Arthritic change is also seen in the partially imaged fourth digit. IMPRESSION: 1. Soft tissue swelling with no acute bony abnormality identified. 2. Osteopenia and arthritic change as above. Electronically signed by: [place] Smith M.D. 08/16/2021 7:26 AM
[2021-08-16 07:46] LABS: Albumin Level 3.3 gm/dl (3.4-5.0); BUN Creatinine Ratio 11.1 (10-20); Calcium 8.4 mg/dl (8.5-10.1); Creatinine Clr Calc Pharmacy 27.7 ml/min; Est GFR (African American) 44.7 ml/min; Est GFR (Non-African American) 38.5 ml/min; Magnesium 1.6 mg/dl (1.7-2.4); Phosphorus 3.4 mg/dl (2.5-4.9)
[2021-08-16] MEDS ORDERED: POTASSIUM CHLORIDE CRTAB 20 MEQ TABCR PO STA (08:36)
[2021-08-16] MEDS ORDERED: PANTOprazole 40 MG TAB PO SCH (09:00)
[2021-08-16] MEDS ORDERED: LOSARTAN POTASSIUM 50 MG TAB PO SCH (09:00)
[2021-08-16] MEDS ORDERED: PRAVASTATIN SOD 20 MG TAB PO SCH (09:00)
[2021-08-16] MEDS ORDERED: ESCITALOPRAM OXALATE 20 MG TAB PO SCH (09:00)
--- NOTE | 2021-08-16 16:50 | Discharge Summary ---
Date of Service August 16, 2021 Admission HPI Per Admitting Provider The patient is a 86-year-old female with a past medical history including skin tears, CAD, compression fracture, acute upper GI bleeding secondary to stomach ulcer, gastritis, factor V Leiden, DVT, PE, anxiety, hypertension, long-term anticoagulant therapy. She presents as noted above. She has very cellophane type skin, and notes a abrasion at the base of her fifth MCP where she thinks the redness began. Principal Diagnosis Cellulitis Discharge Exam Constitutional WD/WN, vitals as above Eyes + anicteric sclerae ENMT external ear and nose normal, oropharynx normal Neck trachea midline, no thyromegaly Respiratory normal respiratory effort, lungs clear to auscultation Cardiovascular RRR, no murmur, no edema Gastrointestinal (Abdomen) normal bowel sounds, soft, nontender, no hepatosplenomegaly Musculoskeletal Head/Neck/Chest: normocephalic and head atraumatic Skin Erythema and swelling of the left fifth digit. Neurologic moves all extremities Discharge Data Allergies Allergy/AdvReac Type Severity Reaction Status Date / Time No Known Drug Allergies Allergy Verified 05/26/21 11:02 Consultations 08/15/21 23:49 ED Decision to Admit Stat Hospital Course (1) Cellulitis of hand: IV vancomycin and Rocephin discontinued, transition to oral Keflex to be discharged home with for 6 days. (2) Hypomagnesemia: Magnesium 1.1 upon admission Given 2 g magnesium replacement IV in ED, recheck laboratories in a.m. (3) On anticoagulant therapy: Chronic anticoagulation with apixaban/factor V Leiden/DVT/PE- Continue apixaban (4) Deep vein thrombosis: See above (5) Factor 5 Leiden mutation, heterozygous: See above (6) Pulmonary embolism: See above (7) Stomach ulcer: Continue pantoprazole (8) Anxiety: Continue escitalopram (9) Hypertension: Continue losartan, metoprolol tartrate and spironolactone Total Time Total Time Spent Total Time Spent (In Minutes): 30 Discharge Plan Discharge Items Patient Disposition: Home - Self-Care Reason For Visit: hypomagnesemia, libby, hand cellulitis Discharge Diagnosis: cellulitis Condition on Discharge: Good Activity: Resume your previous activity Non-emergency contact: Primary Care Provider Call non-emergency contact if: your symptoms worsen Follow-up/Referrals: Senia Bangura CRNP [Primary Care Provider] - Diet: Heart Healthy Addtl Attending Provider Instructions: You were hospitalized at [facility] for evaluation of left hand redness. Your symptoms were consistent with an infection of the skin, known as cellulitis. You were treated with antibiotics and improved while under our care. Please continue to take the antibiotic Keflex 500mg every 8 hours for the next 6 days. A script for this was sent to your pharmacy. If your symptoms return despite taking the antibiotic, please seek medical attention. We recommend you follow up with your primary care provider within the next 1-2 weeks. Pending Studies at Discharge: No Stand-Alone Forms: [facility], Smoking Cessation Medications and DC Order Prescriptions: New cephalexin 500 mg capsule 500 mg PO TID 6 Days Qty: 18 RF: 0 Continued losartan 100 mg tablet 100 mg PO QAM RF: 0 metoprolol tartrate 50 mg tablet 50 mg PO HS RF: 0 Eliquis 5 mg tablet 5 mg PO BID Qty: 90 RF: 3 pantoprazole [Protonix] 40 mg tablet,delayed release (DR/EC) 40 mg PO QAM RF: 0 spironolactone 50 mg tablet 25 mg PO QAM RF: 0 pravastatin 20 mg tablet 20 mg PO QAM RF: 0 escitalopram oxalate 20 mg tablet 20 mg PO QAM RF: 0 Discharge Orders: Discharge Order (Routine); Ordered 08/16/21 Ordered By: Mague Hogan Admission Data Admit Date/Time: 08/16/21 01:08 Attending Provider: Horacio Juan Admit Provider: Dudley Barrios Primary Care Provider: Senia Bangura Other Providers: Dudley Barrios Other Interventions: Discharge Summary Assessment (RN) Last Done: 08/16/21 15:57
--- NOTE | 2021-08-16 17:15 | Billing Data ---
Date of Service August 16, 2021 Coding Level of Care Code D/C DAY MANAGEMENT <30 MINS
[2021-08-16] MEDS ORDERED: cefTRIAXone SODIUM 1,000 MG in DEXTROSE 5% 50 ML IV SCH (18:00)
[2021-08-16] MEDS ORDERED: VANCOMYCIN HCL 750 MG in SODIUM CHLORIDE 0.9% 250 ML IV SCH (18:00)
[2021-08-16] MEDS ORDERED: METOPROLOL TARTRATE 50 MG TAB PO SCH (21:00)
== END 2021-08-16 17:37 | disposition home or self-care (01) | DRG 603 ==
LOC: ED 20:34 → SUATTDRO 08-16 01:08 → 2N 08-16 01:08
DX: Z87.891 Personal history of nicotine dependence; I10 Essential (primary) hypertension; K25.9 Gastric ulcer, unspecified as acute or chronic, without hemorrhage or perforation; E83.42 Hypomagnesemia; Z79.01 Long term (current) use of anticoagulants; D68.51 Activated protein C resistance; F41.9 Anxiety disorder, unspecified; Z86.711 Personal history of pulmonary embolism; Z96.641 Presence of right artificial hip joint; L03.114 Cellulitis of left upper limb

== ENCOUNTER 2022-02-12 07:11 | Inpatient (IN) ==
--- NOTE | 2022-02-12 07:40 | Emergency Department Note ---
History of Present Illness General Chief complaint: Leg Injury/Pain Time Seen by Provider: 02/12/22 07:28 History of Present Illness This 87-year-old female who is well-known to me, presents by BLS ambulance, for evaluation of right leg pain. Patient states she has chronic right lower leg redness. Approximately 4 days ago her pain in the leg increased. 3 days ago the redness also increased. She has developed some weeping from the skin. She has been unable to ambulate. She is worried about a DVT. Patient has a history of DVTs and PE. She has a known history of factor V Leiden mutation. No shortness of breath. She denies any fever or sweats. She has had some chills yesterday and today. Her daughter accompanies her today. No trauma that she is aware of. No other complaints. Home Medications Medication Instructions Recorded Confirmed Type escitalopram oxalate 20 mg tablet 20 mg PO QAM 02/17/18 02/12/22 History losartan 100 mg tablet 100 mg PO QAM 07/08/18 02/12/22 History spironolactone 50 mg tablet 25 mg PO QAM 11/04/19 02/12/22 History pravastatin 20 mg tablet 20 mg PO QAM 03/10/20 02/12/22 History pantoprazole 40 mg tablet,delayed 40 mg PO QAM 03/31/20 02/12/22 History release (Protonix) metoprolol tartrate 50 mg tablet 100 mg PO BID 02/21/21 02/12/22 History apixaban 5 mg tablet (Eliquis) 5 mg PO BID #180 tabs 11/30/21 02/12/22 Rx budesonide 9 mg capsule,extended 9 mg PO QAM PRN Diarrhea 02/12/22 02/12/22 History release (Ortikos) mesalamine 1.2 gram tablet,delayed 4.8 g PO DAILY 02/12/22 02/12/22 History release Allergies Allergy/AdvReac Type Severity Reaction Status Date / Time No Known Drug Allergies Allergy Verified 02/12/22 08:12 Past Med/Surg History Medical History (Updated 02/14/22 @ 21:37 by Jonathan Gage PA-C) Anxiety Chronic diarrhea ON MESALAMINE Collagenous colitis Deep vein thrombosis R LEG Degenerative disc disease Factor 5 Leiden mutation, heterozygous Hypertension Lumbago Lumbar canal stenosis Multilevel On anticoagulant therapy ELIQUIS Osteoarthritis Pulmonary embolism BILT---REASON FOR ELIQUIS Right lumbar radiculitis Surgical History H/O bilateral cataract extraction History of blepharoplasty BILT History of colonoscopy History of tonsillectomy and adenoidectomy History of tooth extraction ALL UPPER TEETH History of total abdominal hysterectomy and bilateral salpingo-oophorectomy Status post right hip replacement Family History Other No significant family history Social History Smoking Status: Former smoker Tobacco Type: Cigarettes Cigarettes Per Day: last smoke 1975; Second Hand Exposure: No; Hx Alcohol Use: Yes Alcohol type: wine Hx Substance Use: No Preferred Language: Sudanese Communication Ability: Effective Visual Impairment: No Limitations 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: Normal Care Information Associate Required: No Beliefs That Will Affect Care: None marital status: / Current Living Situation: Alone current occupational status: retired Feels Safe at Home: Yes Assistive Devices: Walker Review of Systems A total of 10 systems reviewed and were otherwise negative Physical Exam Vital Signs Vital Signs - 24 hr 02/12/22 07:18 Temperature 37.7 C H Temperature Source Oral Pulse Rate 68 Respiratory Rate 16 Respiratory Effort / Characteristics Non-Labored Spontaneous Respiratory Depth Normal Respiratory Pattern Regular Blood Pressure 138/59 L Blood Pressure Mean 85 Blood Pressure Position Sitting Pulse Oximetry 96 Oxygen Delivery Method Room Air Sepsis Recent Fever Within 48 Hours No Sepsis New/Unexplained Change in Mental Status No Sepsis Action Taken by Nursing No Action Required General: Well-developed, well-nourished, elderly white female, in obvious discomfort. No acute distress. Laying on the bed. Alert and oriented. Skin: Warm and dry with fair turgor. No rashes. Patient does have significant erythema present in the right lower leg. It extends from just above her knee to her foot. There is edema at her foot as well. Wounds. No ecchymosis. The leg is noticeably warm compared to the noninvolved side. HEENT: Normocephalic atraumatic. Eyes PERRLA, EOMI. No conjunctiva or scleral injection. Nares patent bilaterally without turbinate enlargement. No significant drainage. No epistaxis. Oropharynx without erythema or exudate. Uvula midline, oral mucosa moist. No lesions present. Heart: Heart RRR. No MGR. Peripheral pulses are 2+. Lungs: Lungs are clear to auscultation. No crackles rhonchi or wheezing. Good air movement. The patient is able to take a deep breath. Abdomen: Abdomen was inspected, auscultated, and palpated. Bowel sounds present x 4. Soft, nontender to palpation. No hepato-splenomegaly. No masses noted. No rebound. Musculoskeletal: Patient has intact motor function to her toes, ankle, knee, and hip on the right side. She does complain of pain in the leg with ankle motion. No pain with knee motion. Edema is present as stated around the foot and ankle. No effusion within the knee. Neurologic: Gross sensation is intact across the upper and lower extremities by soft touch. Course Administered Medications Acetaminophen (Acetaminophen 500 Mg Tab) 1,000 mg PO TID [facility] Stop: 03/15/22 20:59 Last Admin: 02/14/22 19:46 Dose: 1,000 mg Documented By: Admin: 02/14/22 13:15 Dose: 1,000 mg Documented By: [id number] Admin: 02/14/22 08:19 Dose: 1,000 mg Documented By: [id number] Admin: 02/13/22 21:08 Dose: 1,000 mg Documented By: PATRICIA Apixaban (Apixaban 5 Mg Tablet) 5 mg PO BID [facility] Stop: 03/14/22 20:59 Last Admin: 02/14/22 19:46 Dose: 5 mg Documented By: Admin: 02/14/22 08:19 Dose: 5 mg Documented By: [id number] Admin: 02/13/22 21:08 Dose: 5 mg Documented By: Admin: 02/13/22 08:36 Dose: 5 mg Documented By: Admin: 02/12/22 21:05 Dose: 5 mg Documented By: KATHERINE Budesonide (Budesonide Ec 3 Mg Cap) 9 mg PO QAM [facility] Stop: 03/15/22 19:29 Last Admin: 02/14/22 08:19 Dose: 9 mg Documented By: [id number] Cyanocobalamin (Cyanocobalamin (B-12) 500 Mcg Tablet) [facility]: 03/16/22 09:29 Last Admin: 02/14/22 10:39 Dose: 1,000 mcg Documented By: [id number] Escitalopram Oxalate (Escitalopram Oxalate 20 Mg Tab) [facility] Stop: 03/14/22 11:32 Last Admin: 02/14/22 08:20 Dose: 20 mg Documented By: [id number] Admin: 02/13/22 08:37 Dose: 20 mg Documented By: Admin: 02/12/22 12:22 Dose: 20 mg Documented By: JOSE Folic Acid (Folic Acid 1 Mg Tab) [facility] Stop: 03/16/22 09:29 Last Admin: 02/14/22 10:39 Dose: 1 mg Documented By: [id number] Ceftriaxone Sodium 1,000 mg/ (Dextrose) 60 mls @ 100 mls/hr IV Q24H [facility]; Protocol Stop: 02/20/22 11:59 Last Infusion: 02/14/22 13:11 Dose: 0 mls/hr Documented By: [id number] Admin: 02/14/22 12:43 Dose: 100 mls/hr Documented By: [id number] Infusion: 02/13/22 13:35 Dose: 0 mls/hr Documented By: Admin: 02/13/22 12:44 Dose: 100 mls/hr Documented By: MARK Daptomycin 225 mg/ Syringe 4.5 mls @ 2.25 mls/min IV Q24H [facility]; Protocol Stop: 02/21/22 09:44 Last Admin: 02/14/22 11:22 Dose: 2.25 mls/min Documented By: HERLINDA Co-signed By: CLAYTON Sodium Chloride (Nss 1000ml) 1,000 mls @ 75 mls/hr IV .[id number] [facility] Stop: 02/15/22 04:34 Last Admin: 02/14/22 15:20 Dose: 75 mls/hr Documented By: [id number] Losartan Potassium (Losartan Potassium 50 Mg Tab) [facility] Stop: 03/14/22 11:32 Last Admin: 02/14/22 08:20 Dose: 100 mg Documented By: [id number] Admin: 02/13/22 08:37 Dose: 100 mg Documented By: Admin: 02/12/22 12:22 Dose: 100 mg Documented By: JOSE Mesalamine (Mesalamine 1.[address] Tab) 1 each PO BID [facility] Stop: 03/15/22 20:59 Last Admin: 02/14/22 19:45 Dose: 1 each Documented By: Admin: 02/14/22 08:21 Dose: 1 each Documented By: [id number] Admin: 02/13/22 21:09 Dose: 1 each Documented By: PATRICIA Metoprolol Tartrate (Metoprolol Tartrate 100 Mg Tab) 100 mg PO BID [place] Stop: 03/14/22 11:32 Last Admin: 02/14/22 19:45 Dose: 100 mg Documented By: Admin: 02/14/22 08:20 Dose: Not Given Documented By: [id number] Admin: 02/13/22 21:10 Dose: 100 mg Documented By: Admin: 02/13/22 08:36 Dose: 100 mg Documented By: Admin: 02/12/22 21:05 Dose: 100 mg Documented By: Admin: 02/12/22 12:22 Dose: 100 mg Documented By: JOSE Pantoprazole Sodium (Pantoprazole 40 Mg Tab) 40 mg PO QAM [facility] Stop: 03/14/22 11:32 Last Admin: 02/14/22 08:20 Dose: 40 mg Documented By: [id number] Admin: 02/13/22 08:37 Dose: 40 mg Documented By: Admin: 02/12/22 12:22 Dose: 40 mg Documented By: JOSE Spironolactone (Spironolactone 25 Mg Tab) 25 mg PO QAM [facility] Stop: 03/14/22 11:32 Last Admin: 02/14/22 08:20 Dose: 25 mg Documented By: [id number] Admin: 02/13/22 08:36 Dose: 25 mg Documented By: Admin: 02/12/22 12:22 Dose: 25 mg Documented By: JOSE Tramadol HCl (Tramadol Hcl 50 Mg Tablet) 50 mg PO TID PRN PRN Reason: Pain Stop: 03/14/22 20:59 Last Admin: 02/14/22 08:19 Dose: 50 mg Documented By: [id number] Admin: 02/13/22 21:11 Dose: 50 mg Documented By: Admin: 02/13/22 15:22 Dose: 50 mg Documented By: Admin: 02/13/22 08:43 Dose: 50 mg Documented By: Admin: 02/12/22 22:55 Dose: 50 mg Documented By: Admin: 02/12/22 15:05 Dose: 50 mg Documented By: JOSE Discontinued Medications Acetaminophen (Acetaminophen 325 Mg Tab) 650 mg PO Q4H PRN PRN Reason: pain/fever Stop: 03/14/22 11:32 Last Admin: 02/12/22 21:04 Dose: 650 mg Documented By: Admin: 02/12/22 12:22 Dose: 650 mg Documented By: JOSE Budesonide (Budesonide Ec 3 Mg Cap) 3 mg PO QAM [place] Stop: 03/15/22 19:29 Last Admin: 02/13/22 21:22 Dose: Not Given Documented By: PATRICIA Piperacillin Sod/Tazobactam (Sod 3.375 gm/ Dextrose) 100 ml in 115 mls @ 230 mls/hr IV NOW STA Stop: 02/12/22 09:22 Last Infusion: 02/12/22 10:32 Dose: 0 mls/hr Documented By: Admin: 02/12/22 09:50 Dose: 230 mls/hr Documented By: OANH Piperacillin Sod/Tazobactam (Sod 3.375 gm/ Dextrose) 115 mls @ 28.75 mls/hr IV Q8H [facility]; Protocol Stop: 02/19/22 13:59 Last Infusion: 02/13/22 10:31 Dose: 0 mls/hr Documented By: Admin: 02/13/22 05:46 Dose: 28.8 mls/hr Documented By: Infusion: 02/13/22 02:11 Dose: 0 mls/hr Documented By: Admin: 02/12/22 22:11 Dose: 28.8 mls/hr Documented By: Infusion: 02/12/22 18:14 Dose: 0 mls/hr Documented By: Admin: 02/12/22 14:41 Dose: 28.8 mls/hr Documented By: JOSE Daptomycin 225 mg/ Syringe 4.5 mls @ 2.25 mls/min IV Q48H [facility]; Protocol Stop: 02/20/22 11:59 Last Admin: 02/13/22 12:44 Dose: 2.25 mls/min Documented By: MARK Magnesium Sulfate/Dextrose (Magnesium Sulfate / D5w) 1 gm in 100 mls @ 50 mls/hr IV Q2H [place] Stop: 02/14/22 13:29 Last Infusion: 02/14/22 15:17 Dose: 0 mls/hr Documented By: Admin: 02/14/22 13:11 Dose: 50 mls/hr Documented By: Infusion: 02/14/22 12:43 Dose: 0 mls/hr Documented By: Admin: 02/14/22 10:39 Dose: 50 mls/hr Documented By: Miscellaneous (Ortikos: Order Awaiting Action) 1 each N/A QS [place] Stop: 03/14/22 15:59 Last Admin: 02/13/22 15:23 Dose: Not Given Documented By: Admin: 02/13/22 08:35 Dose: Not Given Documented By: TRPham Admin: 02/12/22 23:53 Dose: Not Given Documented By: Admin: 02/12/22 15:01 Dose: Not Given Documented By: JOSE Miscellaneous (Mesalamine 1.2 Gm Er: Order Awaiting Action) 1 each N/A QS [place] Stop: 03/14/22 15:59 Last Admin: 02/13/22 15:23 Dose: Not Given Documented By: TRPham Admin: 02/13/22 08:34 Dose: Not Given Documented By: TRPham Admin: 02/12/22 23:53 Dose: Not Given Documented By: Admin: 02/12/22 15:01 Dose: Not Given Documented By: JOSE Pravastatin Sodium (Pravastatin Sod 20 Mg Tab) 20 mg PO QAM [place] Stop: 03/14/22 11:32 Last Admin: 02/13/22 08:36 Dose: 20 mg Documented By: Admin: 02/12/22 12:22 Dose: 20 mg Documented By: JOSE Medical Decision Making Differential Diagnosis Cellulitis, DVT, contact dermatitis, petechial reaction, peripheral edema, venous stasis changes Medical Records Attestation: I reviewed the patient's medical records. Home Medications Current Medication List: was personally reviewed by me Laboratory Data CBC, chemistry panel, COVID test, and lactate were obtained. CBC is unremarkable. PRP is also unremarkable. COVID test is negative. Lactate is normal at 1.7. Result diagrams: 02/14/22 05:58 02/14/22 05:58 Lab Results 02/12/22 02/12/22 02/12/22 Range/Units 07:20 07:20 07:59 WBC 5.87 (4.8-10.8) K/ul RBC 3.68 L (3.93-5.22) M/uL Hgb 13.1 (12.0-16.0) g/dl Hct 38.2 (34.1-44.9) % MCV 103.8 H (80.0-100.0) fL MCH 35.6 H (25.0-34.0) pg MCHC 34.3 (32.0-36.0) g/dL RDW Std Deviation 55.7 H (36.4-46.3) fL RDW Coeff of Gissell 14.6 H (11.5-14.5) % Plt Count 149 (130-400) K/uL MPV 11.7 (9.4-12.3) fL Immature Gran % (Auto) 0.5 % Neut % (Auto) 77.8 % Lymph % (Auto) 9.2 % [place] % (Auto) 12.3 % Eos % (Auto) 0.0 % Baso % (Auto) 0.2 % Neut # (Auto) 4.57 (1.4-6.5) K/uL Lymph # (Auto) 0.54 L (1.2-3.4) K/uL [place] # (Auto) 0.72 (0.24-0.82) K/uL Eos # (Auto) 0.00 (0-0.50) K/uL Baso # (Auto) 0.01 (0-0.2) K/uL Immature Gran # (Auto) 0.03 H (0.00-0.02) K/uL Sodium 135 L (136-145) mmol/L Potassium 4.0 (3.5-5.1) mmol/L Chloride 105 (98-107) mmol/L Carbon Dioxide 22 (21-32) mmol/L Anion Gap 8 (3-11) BUN 18 (6-23) mg/dl Creatinine 0.98 (0.6-1.2) mg/dl Est Cr Clr Drug Dosing 34.9 ml/min Est GFR ( Amer) 60.1 ml/min Est GFR (Non-Af Amer) 51.9 ml/min BUN/Creatinine Ratio 18.4 (10-20) Glucose 98 (70-99(Fasting)) mg/dl Lactate (0.4-2.0) mmol/L Calcium 8.9 (8.5-10.1) mg/dl Total Bilirubin 1.3 H (0.2-1.0) mg/dl AST 30 (13-39) U/L ALT 24 (7-52) U/L Alkaline Phosphatase 51 (34-104) U/L Total Protein 6.3 (6.0-8.3) gm/dl Albumin 3.8 (3.4-5.0) gm/dl Globulin 2.5 (2.5-4.0) gm/dl Albumin/Globulin Ratio 1.5 (0.9-2) SARS-CoV-2, RNA, NAAT NEGATIVE (NEGATIVE) 02/12/22 Range/Units 09:12 WBC (4.8-10.8) K/ul RBC (3.93-5.22) M/uL Hgb (12.0-16.0) g/dl Hct (34.1-44.9) % MCV (80.0-100.0) fL MCH (25.0-34.0) pg MCHC (32.0-36.0) g/dL RDW Std Deviation (36.4-46.3) fL RDW Coeff of Gissell (11.5-14.5) % Plt Count (130-400) K/uL MPV (9.4-12.3) fL Immature Gran % (Auto) % Neut % (Auto) % Lymph % (Auto) % [place] % (Auto) % Eos % (Auto) % Baso % (Auto) % Neut # (Auto) (1.4-6.5) K/uL Lymph # (Auto) (1.2-3.4) K/uL [place] # (Auto) (0.24-0.82) K/uL Eos # (Auto) (0-0.50) K/uL Baso # (Auto) (0-0.2) K/uL Immature Gran # (Auto) (0.00-0.02) K/uL Sodium (136-145) mmol/L Potassium (3.5-5.1) mmol/L Chloride (98-107) mmol/L Carbon Dioxide (21-32) mmol/L Anion Gap (3-11) BUN (6-23) mg/dl Creatinine (0.6-1.2) mg/dl Est Cr Clr Drug Dosing ml/min Est GFR ( Amer) ml/min Est GFR (Non-Af Amer) ml/min BUN/Creatinine Ratio (10-20) Glucose (70-99(Fasting)) mg/dl Lactate 1.7 (0.4-2.0) mmol/L Calcium (8.5-10.1) mg/dl Total Bilirubin (0.2-1.0) mg/dl AST (13-39) U/L ALT (7-52) U/L Alkaline Phosphatase (34-104) U/L Total Protein (6.0-8.3) gm/dl Albumin (3.4-5.0) gm/dl Globulin (2.5-4.0) gm/dl Albumin/Globulin Ratio (0.9-2) SARS-CoV-2, RNA, NAAT (NEGATIVE) Imaging Data My Impression: Venous Doppler ultrasound obtained today of the right lower extremity was reviewed by me and read by radiology. There is no evidence of DVT. Blood Pressure Blood Pressure Findings: Normal blood pressure MDM Narrative Patient was educated regarding today's findings. Conservative care measures were discussed. IV was established. Labs were obtained. They were unremarkable. Patient was placed on the media monitor. She remained in a stable sinus rhythm without ectopy. Given the erythema of the leg, COVID test was obtained in anticipation of admission. She was negative. Given her history of DVT and PE, ultrasound of the right lower extremity was obtained. This was negative for acute DVT. Her cellulitis is extensive. I do think she would benefit from observation in the hospital given her comorbidities. Patient is in agreement. [facility] hospitalist service was consulted. Please see that di ctation for final management. Impression & Plan Cellulitis of right leg Admission to the hospitalist group. Patient was started on Zosyn IV for her cellulitis. Given her solitary kidney, the lesser dose of 3.375 mg was vania cted. She is also quite petite at only 56 kg. Patient was seen in conjunction with Dr. Knapp, who also evaluated the patient and concurred with today's diagnosis and treatment plan. Discharge Plan Visit Data Chief Complaint: Leg Injury/Pain ED Provider: Kel Knapp ED Midlevel Provider: Jonathan Gage Discharge Problem: Cellulitis of right leg Patient Disposition: Admitted As Inpatient Discharge Instructions Interventions: ED Discharge Assessment Last Done: 02/12/22 11:02
[2022-02-12 08:07] LABS: Basophils # (auto) 0.01 K/uL (0-0.2); Basophils % (auto) 0.2 %; Hematocrit (blood only) 38.2 % (34.1-44.9); Hemoglobin 13.1 g/dl (12.0-16.0); Immature Granulocytes # (auto) 0.03 K/uL (0.00-0.02); Immature Granulocytes % (auto) 0.5 %; Lymphocytes # (auto) 0.54 K/uL (1.2-3.4); Lymphocytes % (auto) 9.2 %; Mean Corpuscular Hemoglobin 35.6 pg (25.0-34.0); Mean Corpuscular Hgb Conc 34.3 g/dL (32.0-36.0); Mean Corpuscular Volume 103.8 fL (80.0-100.0); Mean Platelet Volume 11.7 fL (9.4-12.3); Monocytes # (auto) 0.72 K/uL (0.24-0.82); Monocytes % (auto) 12.3 %; Neutrophils # (auto) 4.57 K/uL (1.4-6.5); Neutrophils % (auto) 77.8 %; Platelet Count 149 K/uL (130-400); RDW Coefficient of Variation 14.6 % (11.5-14.5); RDW Standard Deviation 55.7 fL (36.4-46.3); Red Blood Count 3.68 M/uL (3.93-5.22); White Blood Count 5.87 K/ul (4.8-10.8)
[2022-02-12 08:29] LABS: Albumin Globulin Ratio 1.5 (0.9-2); Albumin Level 3.8 gm/dl (3.4-5.0); BUN Creatinine Ratio 18.4 (10-20); Bilirubin,Total 1.3 mg/dl (0.2-1.0); Calcium 8.9 mg/dl (8.5-10.1); Creatinine Clr Calc Pharmacy 34.9 ml/min; Est GFR (African American) 60.1 ml/min; Est GFR (Non-African American) 51.9 ml/min; Globulin 2.5 gm/dl (2.5-4.0); Total Protein 6.3 gm/dl (6.0-8.3)
--- NOTE | 2022-02-12 08:42 | Ultrasound Report ---
RIGHT LOWER EXTREMITY VENOUS DOPPLER CLINICAL HISTORY: redness/swelling/pain r/o DVT, hx of PE COMPARISON STUDY: Right lower extremity venous Doppler ultrasound February 17, 2017. TECHNIQUE: Sonography of the deep venous system of the right lower extremity was performed. Compress ion and augmentation were evaluated. FINDINGS: The right common femoral, superficial femoral and popliteal veins were compressible. Augme ntation was normal. Flow was shown within the deep calf vessels. There is a small suspected popliteal cyst which measures 3.5 x 2.1 x 1 cm. IMPRESSION: 1. No evidence of deep venous thrombus within the right lower extremity. 2. Suspected small right popliteal cyst. ACT 112: Negative or not required by law. Electronically signed by: Hubert Nascimento M.D. 02/12/2022 8:41 AM
[2022-02-12] MEDS ORDERED: PIPERACILLIN/TAZOBACTAM 3.375 GM in DEXTROSE 5% 100 ML/100 ML BAG IV STA (08:53)
--- NOTE | 2022-02-12 10:43 | History & Physical Report ---
Date of Service February 12, 2022 Assessment & Plan (1) Cellulitis of right leg: Plan: Non purulent cellulitis of the right lower extremity red and warm to touch on exam, worsening Blood cultures obtained, US did not show any evidence of acute DVT Patient has only one functional kidney, will avoid vancomycin started on IV Zosyn Monitor area of redness monitor inflammatory markers PRN Tylenol for pain and fever (2) Chronic diarrhea: Plan: now under control On mesalamine and Budesonide (3) HTN (hypertension): Plan: BP under good control On Losartan (4) Factor 5 Leiden mutation, heterozygous: Plan: On Apixaban indefinitely (5) Chronic deep vein thrombosis (DVT): Plan: On Apixaban (6) Chronic pulmonary embolism: Plan: Chronic saddle embolus On Apixaban Plan continue hospitalization DVT: A[pixaban Full code History of Present Illness Chief Complaint: leg redness Primary Care Provider: LUIS Mcgovern This Is an 87-year-old female with a history of factor V Leiden deficiency, DVT and PE, on anticoagulation, hypertension who presents to the hospital today on account of worsening right lower extremity redness and swelling. According to the patient and the daughter from home most of the history was obtained patient noticed that the leg started getting swollen about 3 to 4 days ago. At this redness started about a day after due to the worsening redness pain and swelling the patient decided to come to the hospital for further evaluation. In the emergency department right lower extremity duplex ultrasound did not show any evidence of acute DVT. Blood cultures were obtained patient was apparently started on IV antibiotics and will be admitted to hospital further management. Allergies Allergy/AdvReac Type Severity Reaction Status Date / Time No Known Drug Allergies Allergy Verified 02/12/22 08:12 Home Medications Medication Instructions Recorded Confirmed Type escitalopram oxalate 20 mg tablet 20 mg PO QAM 02/17/18 02/12/22 History losartan 100 mg tablet 100 mg PO QAM 07/08/18 02/12/22 History spironolactone 50 mg tablet 25 mg PO QAM 11/04/19 02/12/22 History pravastatin 20 mg tablet 20 mg PO QAM 03/10/20 02/12/22 History pantoprazole 40 mg tablet,delayed 40 mg PO QAM 03/31/20 02/12/22 History release (Protonix) metoprolol tartrate 50 mg tablet 100 mg PO BID 02/21/21 02/12/22 History apixaban 5 mg tablet (Eliquis) 5 mg PO BID #180 tabs 11/30/21 02/12/22 Rx budesonide 9 mg capsule,extended 27 mg PO QAM PRN Diarrhea 02/12/22 02/12/22 History release (Ortikos) mesalamine 1.2 gram tablet,delayed 4.8 g PO DAILY 02/12/22 02/12/22 History release Past Med/Surg History Medical History (Updated 02/12/22 @ 10:42 by Hardeep Zuñiga MD) Anxiety Chronic diarrhea ON MESALAMINE Collagenous colitis Deep vein thrombosis R LEG Degenerative disc disease Factor 5 Leiden mutation, heterozygous Hypertension Lumbago Lumbar canal stenosis Multilevel On anticoagulant therapy ELIQUIS Osteoarthritis Pulmonary embolism BILT---REASON FOR ELIQUIS Right lumbar radiculitis Surgical History H/O bilateral cataract extraction History of blepharoplasty BILT History of colonoscopy History of tonsillectomy and adenoidectomy History of tooth extraction ALL UPPER TEETH History of total abdominal hysterectomy and bilateral salpingo-oophorectomy Status post right hip replacement Family History Other No significant family history Social History Smoking Status: Former smoker Tobacco Type: Cigarettes Cigarettes Per Day: last smoke 1975; Second Hand Exposure: No; Hx Alcohol Use: Yes Alcohol type: wine Hx Substance Use: No Preferred Language: [place] Communication Ability: Effective Visual Impairment: No Limitations 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: Normal 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 Physical Exam Physical Exam: The patient is awake, alert and oriented 3, well developed and well nourished, normocephalic and atraumatic, lying in bed and in no acute distress. HEENT--PERRL, EOMI, mucous membranes and oropharynx mildly dry Neck--supple. No JVD. No bruits. Thyroid normal, trachea midline, no adenopathy. Heart--normal S1 and S2. No murmurs, rubs or gallops. Lungs--clear bilaterally, no respiratory distress, no accessory muscle use. Abdomen--normal bowel sounds and soft. Mild epigastric and left sided abdominal pain Extremities--no cyanosis or clubbing. No edema. Dermatologic--right lwoer extremity redness and warmth Neurologic--cranial nerves II through XII grossly intact. Rheumatologic--normal range of motion. Psychiatric--normal affect. Results & Data Results & Data ([facility]) Vital Signs (Past 12 Hours) Vital Signs Temp Pulse Resp BP Pulse Ox O2 Del Method 02/12/22 08:10 62 97 Room Air 02/12/22 08:00 62 24 96 Room Air 02/12/22 07:50 62 24 97 Room Air 02/12/22 07:40 63 96 Room Air 02/12/22 07:30 63 28 H 95 Room Air 02/12/22 07:20 63 96 Room Air 02/12/22 07:19 64 96 Room Air 02/12/22 07:18 99.9 F H 68 16 138/59 L 96 Room Air Code Status & VTE Plan VTE Prophylaxis Plan VTE Prophylaxis will be ordered: Yes PG Care Time/CCT Total # of Minutes Spent Total Time Spent with Patient: Total time spent is greater than 50% in coordination of care (as documented) at patient's floor/unit and/or counseling patient: Coding Level of Care Code 04123 Initial Inpt Care Lvl 3 Diagnoses Cellulitis of right leg L03.115 Chronic diarrhea K52.9 HTN (hypertension) I10 Factor 5 Leiden mutation, heterozygous D68.51 Chronic deep vein thrombosis (DVT) I82.509 Chronic pulmonary embolism I27.82 Time Spent (min) 35
[2022-02-12] MEDS: METOPROLOL TARTRATE 100 MG TAB PO SCH ×2 (12:22→21:05)
[2022-02-12] MEDS: ACETAMINOPHEN 325 MG TAB PO PRN ×2 (12:22→21:04)
[2022-02-12] MEDS: LOSARTAN POTASSIUM 50 MG TAB PO SCH (12:22)
[2022-02-12] MEDS: ESCITALOPRAM OXALATE 20 MG TAB PO SCH (12:22)
[2022-02-12] MEDS: PRAVASTATIN SOD 20 MG TAB PO SCH (12:22)
[2022-02-12] MEDS: PANTOprazole 40 MG TAB PO SCH (12:22)
[2022-02-12] MEDS: SPIRONOLACTONE 25 MG TAB PO SCH (12:22)
[2022-02-12] MEDS: PIPERACILLIN/TAZOBACTAM 3.375 GM in DEXTROSE 5% 100 ML IV SCH ×2 (14:41→22:11)
[2022-02-12] MEDS: traMADol HCL 50 MG TABLET PO PRN ×2 (15:05→22:55)
[2022-02-12] MEDS: APIXABAN 5 MG TABLET PO SCH (21:05)
[2022-02-13] MEDS: PIPERACILLIN/TAZOBACTAM 3.375 GM in DEXTROSE 5% 100 ML IV SCH (05:46)
[2022-02-13 07:40] LABS: Hematocrit (blood only) 32.1 % (34.1-44.9); Hemoglobin 10.8 g/dl (12.0-16.0); Mean Corpuscular Hemoglobin 35.3 pg (25.0-34.0); Mean Corpuscular Hgb Conc 33.6 g/dL (32.0-36.0); Mean Corpuscular Volume 104.9 fL (80.0-100.0); Mean Platelet Volume 12.1 fL (9.4-12.3); Platelet Count 122 K/uL (130-400); RDW Coefficient of Variation 14.7 % (11.5-14.5); RDW Standard Deviation 57.1 fL (36.4-46.3); Red Blood Count 3.06 M/uL (3.93-5.22); White Blood Count 11.03 K/ul (4.8-10.8)
[2022-02-13 08:06] LABS: BUN Creatinine Ratio 16.4 (10-20); Calcium 8.3 mg/dl (8.5-10.1); Creatinine Clr Calc Pharmacy 29.5 ml/min; Est GFR (Non-African American) 42.3 ml/min
[2022-02-13] MEDS: APIXABAN 5 MG TABLET PO SCH ×2 (08:36→21:08)
[2022-02-13] MEDS: METOPROLOL TARTRATE 100 MG TAB PO SCH ×2 (08:36→21:10)
[2022-02-13] MEDS: PRAVASTATIN SOD 20 MG TAB PO SCH (08:36)
[2022-02-13] MEDS: SPIRONOLACTONE 25 MG TAB PO SCH (08:36)
[2022-02-13] MEDS: ESCITALOPRAM OXALATE 20 MG TAB PO SCH (08:37)
[2022-02-13] MEDS: PANTOprazole 40 MG TAB PO SCH (08:37)
[2022-02-13] MEDS: LOSARTAN POTASSIUM 50 MG TAB PO SCH (08:37)
[2022-02-13] MEDS: traMADol HCL 50 MG TABLET PO PRN ×3 (08:43→21:11)
[2022-02-13] MEDS ORDERED: DAPTOmycin 225 MG in SYRINGE 0 ML IV SCH (12:00)
[2022-02-13] MEDS: cefTRIAXone SODIUM 1,000 MG in DEXTROSE 5% 50 ML IV SCH (12:44)
--- NOTE | 2022-02-13 19:20 | Hospitalist Progress Note ---
Date of Service February 13, 2022 Assessment & Plan (1) Cellulitis of right leg: Plan: Non purulent cellulitis of the right lower extremity Remains erythematous, hot, tender With worsening leukocytosis today, no fevers but not much improvement in erythema Blood cultures -NGTD Doppler negative for acute DVT -change IV Zosyn to ceftriaxone and add Dapto for MRSA coverage as not improving -monitor inflammatory markers in AM with CRP, ESR -make Tylenol 1000mg po tid scheduled and continue prn tramadol -keep leg elevated when possible (2) Hyponatremia: Plan: Na+ down to 132 today could be from pain/SIADH, dehydration? follow in AM and if worsens, check urine studies improve pain control as above with scheduled tylenol (3) Macrocytic anemia: Plan: MCV 103, hgb 10 check B12, folate in AM (4) Chronic diarrhea: Plan: now under control , no specific diagnosis she knows of--> ?UC On mesalamine and Budesonide--> brought in from home and will get verified with pharmacy (5) HTN (hypertension): Plan: BP under good control -continue Losartan, aldactone, metoprolol (6) Factor 5 Leiden mutation, heterozygous: Plan: On Apixaban indefinitely Doppler here neg for DVT (7) Chronic deep vein thrombosis (DVT): Plan: On Apixaban (8) Chronic pulmonary embolism: Plan: with a h/o saddle embolus On Apixaban Plan continued hospitalization, added PT/OT evals DVT proph-pixaban Full code Discussed her care with her daughter on the phone Admission and Anticipated Discharge Date Admission Date: February 12, 2022 Subjective Pt having a lot of pain in right leg with trying to stand today and is frustrated with that. Is disappointed she is not better. Thinks the swelling is down but has been lying in bed all day. Is eating and drinking, no abd pain or nausea. No other complaints. Has her budesonide and mesalamine from home and needs to take them. Review of Systems Review of Systems: All systems reviewed & are unremarkable except as noted in HPI & below Physical Exam Constitutional: WD/WN, vitals as above Eyes: + anicteric sclerae Neck: trachea midline, no thyromegaly Respiratory: normal respiratory effort, lungs clear to auscultation Cardiovascular: RRR, no murmur, no edema Chest (Breasts): Chest: normal inspection of chest Gastrointestinal (Abdomen): normal bowel sounds, soft, nontender, no hepatosplenomegaly Musculoskeletal: Extremities: extremities normal to inspection; no cyanosis and no clubbing Skin: Right leg entirely with erythema, warmth, 2+ pitting edema through to dorsal foot, 2+ DP pulse +TTP all over especially right calf no knee joint effusion Neurologic: moves all extremities and awake; no focal motor deficits Psychiatric: A+Ox3, euthymic affect Results & Data Results & Data ([facility]) Vital Signs (Past 12 Hours) Vital Signs Temp Pulse Resp BP Pulse Ox O2 Del Method 02/13/22 16:05 59 L 18 122/81 97 Room Air 02/13/22 08:15 36.7 C 57 L 18 116/69 98 Room Air 02/13/22 08:40 63 119/74 100 Room Air Laboratory Results 02/13/22 02/13/22 Range/Units 06:22 06:22 WBC 11.03 H (4.8-10.8) K/ul RBC 3.06 L (3.93-5.22) M/uL Hgb 10.8 L (12.0-16.0) g/dl Hct 32.1 L (34.1-44.9) % MCV 104.9 H (80.0-100.0) fL MCH 35.3 H (25.0-34.0) pg MCHC 33.6 (32.0-36.0) g/dL RDW Std Deviation 57.1 H (36.4-46.3) fL RDW Coeff of Gissell 14.7 H (11.5-14.5) % Plt Count 122 L (130-400) K/uL MPV 12.1 (9.4-12.3) fL Sodium 132 L (136-145) mmol/L Potassium 4.0 (3.5-5.1) mmol/L Chloride 103 (98-107) mmol/L Carbon Dioxide 24 (21-32) mmol/L Anion Gap 5 (3-11) BUN 19 (6-23) mg/dl Creatinine 1.16 (0.6-1.2) mg/dl Est Cr Clr Drug Dosing 29.5 ml/min Est GFR ( Amer) 49.0 ml/min Est GFR (Non-Af Amer) 42.3 ml/min BUN/Creatinine Ratio 16.4 (10-20) Glucose 85 (70-99(Fasting)) mg/dl Calcium 8.3 L (8.5-10.1) mg/dl PG Care Time/CCT Total # of Minutes Spent Total Time Spent with Patient: Total time spent is greater than 50% in coordination of care (as documented) at patient's floor/unit and/or counseling patient: Coding Level of Care Code 19158 Subseq Hosp Care Lvl 2 Diagnoses Cellulitis of right leg L03.115 Hyponatremia E87.1 Macrocytic anemia D53.9 Chronic diarrhea K52.9 HTN (hypertension) I10 Factor 5 Leiden mutation, heterozygous D68.51 Chronic deep vein thrombosis (DVT) I82.509 Chronic pulmonary embolism I27.82
[2022-02-13] MEDS ORDERED: BUDESONIDE EC 3 MG CAP PO SCH (19:30)
[2022-02-13] MEDS ORDERED: Nursing to Pharmacy Communication SCH (19:45)
[2022-02-13] MEDS: ACETAMINOPHEN 500 MG TAB PO SCH (21:08)
[2022-02-13] MEDS: MESALAMINE 1.2 GM PO SCH (21:09)
[2022-02-14 06:40] LABS: Basophils # (auto) 0.01 K/uL (0-0.2); Basophils % (auto) 0.1 %; Hematocrit (blood only) 31.5 % (34.1-44.9); Immature Granulocytes # (auto) 0.05 K/uL (0.00-0.02); Immature Granulocytes % (auto) 0.6 %; Lymphocytes # (auto) 1.05 K/uL (1.2-3.4); Mean Corpuscular Hemoglobin 36.1 pg (25.0-34.0); Mean Corpuscular Hgb Conc 34.9 g/dL (32.0-36.0); Mean Corpuscular Volume 103.3 fL (80.0-100.0); Mean Platelet Volume 12.3 fL (9.4-12.3); Monocytes # (auto) 0.57 K/uL (0.24-0.82); Monocytes % (auto) 6.5 %; Neutrophils # (auto) 7.07 K/uL (1.4-6.5); Neutrophils % (auto) 80.8 %; Platelet Count 120 K/uL (130-400); RDW Coefficient of Variation 14.3 % (11.5-14.5); RDW Standard Deviation 54.4 fL (36.4-46.3); Red Blood Count 3.05 M/uL (3.93-5.22); White Blood Count 8.75 K/ul (4.8-10.8)
[2022-02-14 07:29] LABS: BUN Creatinine Ratio 14.4 (10-20); C Reactive Protein 19.44 mg/dl (0-0.5); Calcium 8.4 mg/dl (8.5-10.1); Creatinine Clr Calc Pharmacy 32.9 ml/min; Est GFR (African American) 55.9 ml/min; Est GFR (Non-African American) 48.3 ml/min; Magnesium 1.5 mg/dl (1.7-2.4); Potassium 3.9 mmol/L (3.5-5.1)
[2022-02-14] MEDS: ACETAMINOPHEN 500 MG TAB PO SCH ×3 (08:19→19:46)
[2022-02-14] MEDS: APIXABAN 5 MG TABLET PO SCH ×2 (08:19→19:46)
[2022-02-14] MEDS: BUDESONIDE EC 3 MG CAP PO SCH (08:19)
[2022-02-14] MEDS: traMADol HCL 50 MG TABLET PO PRN (08:19)
[2022-02-14] MEDS: METOPROLOL TARTRATE 100 MG TAB PO SCH ×2 (08:20→19:45)
[2022-02-14] MEDS: PANTOprazole 40 MG TAB PO SCH (08:20)
[2022-02-14] MEDS: LOSARTAN POTASSIUM 50 MG TAB PO SCH (08:20)
[2022-02-14] MEDS: SPIRONOLACTONE 25 MG TAB PO SCH (08:20)
[2022-02-14] MEDS: ESCITALOPRAM OXALATE 20 MG TAB PO SCH (08:20)
[2022-02-14] MEDS: MESALAMINE 1.2 GM PO SCH ×2 (08:21→19:45)
[2022-02-14] MEDS: MAGNESIUM SULFATE / D5W 1 GM/100 ML BAG IV SCH ×2 (10:39→13:11)
[2022-02-14] MEDS: CYANOCOBALAMIN (B-12) 500 MCG TABLET PO SCH (10:39)
[2022-02-14] MEDS: FOLIC ACID 1 MG TAB PO SCH (10:39)
[2022-02-14] MEDS: DAPTOmycin 225 MG in SYRINGE 0 ML IV SCH (11:22)
[2022-02-14] MEDS: cefTRIAXone SODIUM 1,000 MG in DEXTROSE 5% 50 ML IV SCH (12:43)
[2022-02-14] MEDS ORDERED: SODIUM CHLORIDE 0.9% 1000ML 1,000 ML IV SCH (15:15)
--- NOTE | 2022-02-14 18:06 | Hospitalist Progress Note ---
Date of Service February 14, 2022 Assessment & Plan (1) Cellulitis of right leg: Plan: Clinically improved today. Cont IV rocephin. Cont IV daptomycin. Suspect we can change to PO abx next 1-2 days. (2) Hyponatremia: Plan: Patient appears mildly volume contracted in the setting of #1 above. MM dry, BPs are low-normal, only voided 1x today. Give isotonic fluids today. Repeat BMP in am. Check urine osm, serum osm, urine Na. (3) Macrocytic anemia: Plan: Both B12 and folate are technically wnl but nearly deficient. Start supplementation - folic acid 1mg daily; b12 1000mcg daily. CBC in am for stability. 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 Cont mesalamine and Budesonide. No issues at this time. (5) HTN (hypertension): Plan: Bps low-normal today. Hold aldactone. Cont Losartan and metoprolol but adjust doses if necessary. (6) Factor 5 Leiden mutation, heterozygous: Plan: On Apixaban indefinitely Doppler here neg for DVT (RLE) (7) Chronic deep vein thrombosis (DVT): Plan: On Apixaban 5mg BID chronically (8) Chronic pulmonary embolism: Plan: with a h/o saddle embolus On Apixaban (9) Hypomagnesemia: Plan: replace IV repeat level am Plan daughter updated by phone this evening appreciate PT/OT evals should be able to return home at d/c Admission and Anticipated Discharge Date Admission Date: February 12, 2022 Subjective patient feeling much better today was able to weight bear on the RLE much more comfortably today the redness of the RLE is also much better appetite fair in her estimation although nursing flowsheets show 80-90% meal consumption did well with PT/OT she reports she lives alone but her daughter stays with her 3 days/week she is hoping to return home Review of Systems Review of Systems: gen - no fevers or chills cv - no cp, no orthopnea pulm - no cough, no dyspnea GI - no abd pain Physical Exam Physical Exam: gen - NAD, looks good, pleasant neck - no JVD mouth - MM dry heart - RRR, s1 s2 lungs - CTA b/l abd - soft NT ND BS+ ext - mild edema right foot, pulses 2+ b/l feet skin - venous stasis changes b/l legs; residual cellulitis right foot with erythema of dorsum of foot; mild erythema distal myers as well; feet are cool to touch but cap refill about 2 seconds psych - a/o x 3 Results & Data Results & Data ([facility]) Vital Signs (Past 12 Hours) Vital Signs Temp Pulse Resp BP Pulse Ox O2 Del Method 02/14/22 16:14 36.5 C 61 18 109/71 95 Room Air 02/14/22 15:15 65 110/69 96 Room Air 02/14/22 10:51 36.6 C 59 L 18 97/64 L 98 Room Air 02/14/22 07:51 36.5 C 58 L 16 124/78 95 Room Air 02/14/22 07:15 Room Air Laboratory Results Laboratory Results - last 24 hr 02/14/22 02/14/22 02/14/22 05:58 05:58 05:58 WBC 8.75 RBC 3.05 L Hgb 11.0 L Hct 31.5 L MCV 103.3 H MCH 36.1 H MCHC 34.9 RDW Std Deviation 54.4 H RDW Coeff of Gissell 14.3 Plt Count 120 L MPV 12.3 Immature Gran % (Auto) 0.6 Neut % (Auto) 80.8 Lymph % (Auto) 12.0 [place] % (Auto) 6.5 Eos % (Auto) 0.0 Baso % (Auto) 0.1 Neut # (Auto) 7.07 H Lymph # (Auto) 1.05 L [place] # (Auto) 0.57 Eos # (Auto) 0.00 Baso # (Auto) 0.01 Immature Gran # (Auto) 0.05 H ESR 50 H Sodium 130 L Potassium 3.9 Chloride 102 Carbon Dioxide 20 L Anion Gap 8 BUN 15 Creatinine 1.04 Est Cr Clr Drug Dosing 32.9 Est GFR ( Amer) 55.9 Est GFR (Non-Af Amer) 48.3 BUN/Creatinine Ratio 14.4 Glucose 82 Calcium 8.4 L Magnesium 1.5 L C-Reactive Protein 19.44 H Vitamin B12 Folate Procalcitonin Urine Osmolality Ur Random Sodium 02/14/22 02/14/22 02/14/22 05:58 05:58 15:21 WBC RBC Hgb Hct MCV MCH MCHC RDW Std Deviation RDW Coeff of Gissell Plt Count MPV Immature Gran % (Auto) Neut % (Auto) Lymph % (Auto) [place] % (Auto) Eos % (Auto) Baso % (Auto) Neut # (Auto) Lymph # (Auto) [place] # (Auto) Eos # (Auto) Baso # (Auto) Immature Gran # (Auto) ESR Sodium Potassium Chloride Carbon Dioxide Anion Gap BUN Creatinine Est Cr Clr Drug Dosing Est GFR ( Amer) Est GFR (Non-Af Amer) BUN/Creatinine Ratio Glucose Calcium Magnesium C-Reactive Protein Vitamin B12 297 Folate 5.54 Procalcitonin 4.94 H Urine Osmolality 381 L Ur Random Sodium 02/14/22 15:21 WBC RBC Hgb Hct MCV MCH MCHC RDW Std Deviation RDW Coeff of Gissell Plt Count MPV Immature Gran % (Auto) Neut % (Auto) Lymph % (Auto) [place] % (Auto) Eos % (Auto) Baso % (Auto) Neut # (Auto) Lymph # (Auto) Wallace # (Auto) Eos # (Auto) Baso # (Auto) Immature Gran # (Auto) ESR Sodium Potassium Chloride Carbon Dioxide Anion Gap BUN Creatinine Est Cr Clr Drug Dosing Est GFR ( Amer) Est GFR (Non-Af Amer) BUN/Creatinine Ratio Glucose Calcium Magnesium C-Reactive Protein Vitamin B12 Folate Procalcitonin Urine Osmolality Ur Random Sodium 56 PG Care Time/CCT Total # of Minutes Spent Total Time Spent with Patient: Total time spent is greater than 50% in coordination of care (as documented) at patient's floor/unit and/or counseling patient: Coding Level of Care Code 50695 Subseq Hosp Care Lvl 3 Diagnoses Cellulitis of right leg L03.115 Hyponatremia E87.1 Macrocytic anemia D53.9 Chronic diarrhea K52.9 HTN (hypertension) I10 Factor 5 Leiden mutation, heterozygous D68.51 Chronic deep vein thrombosis (DVT) I82.509 Chronic pulmonary embolism I27.82 Hypomagnesemia E83.42
[2022-02-15 06:58] LABS: Hematocrit (blood only) 31.1 % (34.1-44.9); Hemoglobin 10.9 g/dl (12.0-16.0); Immature Granulocytes # (auto) 0.06 K/uL (0.00-0.02); Immature Granulocytes % (auto) 0.7 %; Lymphocytes # (auto) 0.69 K/uL (1.2-3.4); Lymphocytes % (auto) 7.6 %; Mean Corpuscular Hemoglobin 35.9 pg (25.0-34.0); Mean Corpuscular Volume 102.3 fL (80.0-100.0); Mean Platelet Volume 12.5 fL (9.4-12.3); Monocytes # (auto) 0.75 K/uL (0.24-0.82); Monocytes % (auto) 8.2 %; Neutrophils % (auto) 83.5 %; Platelet Count 142 K/uL (130-400); RDW Coefficient of Variation 13.7 % (11.5-14.5); RDW Standard Deviation 51.6 fL (36.4-46.3); Red Blood Count 3.04 M/uL (3.93-5.22)
[2022-02-15 07:28] LABS: BUN Creatinine Ratio 12.6 (10-20); Calcium 8.6 mg/dl (8.5-10.1); Creatinine Clr Calc Pharmacy 33.2 ml/min; Est GFR (African American) 56.6 ml/min; Est GFR (Non-African American) 48.8 ml/min; Potassium 4.2 mmol/L (3.5-5.1)
[2022-02-15] MEDS: ACETAMINOPHEN 500 MG TAB PO SCH ×3 (08:09→20:54)
[2022-02-15] MEDS: traMADol HCL 50 MG TABLET PO PRN (08:09)
[2022-02-15] MEDS: MESALAMINE 1.2 GM PO SCH ×2 (08:09→20:54)
[2022-02-15] MEDS: METOPROLOL TARTRATE 100 MG TAB PO SCH ×2 (08:10→20:55)
[2022-02-15] MEDS: PANTOprazole 40 MG TAB PO SCH (08:10)
[2022-02-15] MEDS: BUDESONIDE EC 3 MG CAP PO SCH (08:10)
[2022-02-15] MEDS: FOLIC ACID 1 MG TAB PO SCH (08:10)
[2022-02-15] MEDS: LOSARTAN POTASSIUM 50 MG TAB PO SCH (08:10)
[2022-02-15] MEDS: CYANOCOBALAMIN (B-12) 500 MCG TABLET PO SCH (08:10)
[2022-02-15] MEDS: APIXABAN 5 MG TABLET PO SCH ×2 (08:10→20:54)
[2022-02-15] MEDS: ESCITALOPRAM OXALATE 20 MG TAB PO SCH (08:10)
[2022-02-15] MEDS: DAPTOmycin 225 MG in SYRINGE 0 ML IV SCH (10:42)
[2022-02-15] MEDS: cefTRIAXone SODIUM 1,000 MG in DEXTROSE 5% 50 ML IV SCH (12:01)
--- NOTE | 2022-02-15 19:07 | Hospitalist Progress Note ---
Date of Service February 15, 2022 Assessment & Plan (1) Cellulitis of right leg: Plan: Again clinically improved today. Cont IV rocephin. Cont IV daptomycin. Suspect we can change to PO abx next 1-2 days. Elevate legs when in bed. (2) Hyponatremia: Plan: Na level stable s/p fluids. Volume status euvolemic today - stop IV fluids. Repeat BMP in am. urine osm, serum osm, urine Na noted. 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 (3) Macrocytic anemia: Plan: Both B12 and folate technically wnl but nearly deficient. Started supplementation - folic acid 1mg daily; b12 1000mcg daily. CBC in am for stability. 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 Cont mesalamine and Budesonide. No issues at this time. See below regarding hematochezia. (5) HTN (hypertension): Plan: Bps improved but cont to hold aldactone. Cont Losartan and metoprolol but adjust doses if necessary. (6) Factor 5 Leiden mutation, heterozygous: Plan: On Apixaban indefinitely Doppler here neg for DVT (RLE) (7) Chronic deep vein thrombosis (DVT): Plan: On Apixaban 5mg BID chronically (8) Chronic pulmonary embolism: Plan: with a h/o saddle embolus On Apixaban (9) Hypomagnesemia: Plan: repleted resolved (10) Hematochezia: Plan: 1 episode, painless last colonoscopy 2016 without any features that would lead to rectal bleeding given that 5 years have passed since last endoscopy she could have certainly developed something new in the distal small bowel or colon given high risk of holding her Eliquis will simply observe for additional episodes, trend H/H, etc. microscopic colitis does not cause BRBPR Plan daughter updated at bedside today appreciate PT/OT evals should be able to return home at d/c Admission and Anticipated Discharge Date Admission Date: February 12, 2022 Subjective patient had a grossly bloody bowel movement this am the blood was bright red she has no rectal pain no h/o hemorrhoids has never had BRBPR in the past records obtained - last colonoscopy 2016 by [facility] -- entirely normal colonoscopy - no diverticuli, polyps, hemorrhoids random biopsies c/w microscopic colitis she overall feels well right leg pain resolved right leg erythema much improved ambulating eating well no abd pain Review of Systems Review of Systems: gen - no fevers, no chills cv - no orthopnea pulm - no dyspnea GI - no abd pain, no N/V Physical Exam Physical Exam: gen - NAD, looks good, pleasant neck - no JVD mouth - MMM heart - RRR, s1 s2, no murmur lungs - CTA b/l abd - soft NT ND BS+ ext - mild edema right foot and right myers/leg - similar to yesterday, pulses 2+ b/l feet skin - venous stasis changes b/l legs with venous pooling, RLE>LLE; minimal residual cellulitis right foot with erythema of dorsum of foot; feet are cool to touch but cap refill about 2 seconds psych - a/o x 3 rectal - chaperoned by nursing staff -- no gross blood; no hemorrhoids; no masses; no impaction; no fissure Results & Data Results & Data ([facility]) Vital Signs (Past 12 Hours) Vital Signs Temp Pulse Resp BP Pulse Ox O2 Del Method 02/15/22 14:25 36.7 C 63 16 127/80 90 Room Air 02/15/22 09:31 109/70 02/15/22 07:40 36.6 C 65 16 159/93 H 97 Room Air 02/15/22 07:15 Room Air Laboratory Results Laboratory Results - last 24 hr 02/15/22 02/15/22 02/15/22 06:01 06:01 06:01 WBC 9.10 RBC 3.04 L Hgb 10.9 L Hct 31.1 L MCV 102.3 H MCH 35.9 H MCHC 35.0 RDW Std Deviation 51.6 H RDW Coeff of Gissell 13.7 Plt Count 142 MPV 12.5 H Immature Gran % (Auto) 0.7 Neut % (Auto) 83.5 Lymph % (Auto) 7.6 [place] % (Auto) 8.2 Eos % (Auto) 0.0 Baso % (Auto) 0.0 Neut # (Auto) 7.60 H Lymph # (Auto) 0.69 L [place] # (Auto) 0.75 Eos # (Auto) 0.00 Baso # (Auto) 0.00 Immature Gran # (Auto) 0.06 H Sodium 131 L Potassium 4.2 Chloride 103 Carbon Dioxide 22 Anion Gap 6 BUN 13 Creatinine 1.03 Est Cr Clr Drug Dosing 33.2 Est GFR ( Amer) 56.6 Est GFR (Non-Af Amer) 48.8 BUN/Creatinine Ratio 12.6 Glucose 110 H Osmolality 272 L Calcium 8.6 Magnesium 2.0 PG Care Time/CCT Total # of Minutes Spent Total Time Spent with Patient: Total time spent is greater than 50% in coordination of care (as documented) at patient's floor/unit and/or counseling patient: Coding Level of Care Code 01536 Subseq Hosp Care Lvl 3 Diagnoses Cellulitis of right leg L03.115 Hyponatremia E87.1 Macrocytic anemia D53.9 Chronic diarrhea K52.9 HTN (hypertension) I10 Factor 5 Leiden mutation, heterozygous D68.51 Chronic deep vein thrombosis (DVT) I82.509 Chronic pulmonary embolism I27.82 Hypomagnesemia E83.42 Hematochezia K92.1
[2022-02-16 06:38] LABS: Hematocrit (blood only) 28.7 % (34.1-44.9); Hemoglobin 10.2 g/dl (12.0-16.0); Mean Corpuscular Hemoglobin 35.7 pg (25.0-34.0); Mean Corpuscular Hgb Conc 35.5 g/dL (32.0-36.0); Mean Corpuscular Volume 100.3 fL (80.0-100.0); Mean Platelet Volume 11.6 fL (9.4-12.3); Platelet Count 159 K/uL (130-400); RDW Coefficient of Variation 13.6 % (11.5-14.5); RDW Standard Deviation 49.8 fL (36.4-46.3); Red Blood Count 2.86 M/uL (3.93-5.22); White Blood Count 6.48 K/ul (4.8-10.8)
[2022-02-16 07:00] LABS: BUN Creatinine Ratio 13.3 (10-20); Calcium 8.4 mg/dl (8.5-10.1); Est GFR (African American) 66.6 ml/min; Est GFR (Non-African American) 57.5 ml/min; Potassium 3.6 mmol/L (3.5-5.1)
[2022-02-16] MEDS: ACETAMINOPHEN 500 MG TAB PO SCH ×3 (08:21→20:22)
[2022-02-16] MEDS: APIXABAN 5 MG TABLET PO SCH ×2 (08:22→20:22)
[2022-02-16] MEDS: BUDESONIDE EC 3 MG CAP PO SCH (08:22)
[2022-02-16] MEDS: FOLIC ACID 1 MG TAB PO SCH (08:23)
[2022-02-16] MEDS: ESCITALOPRAM OXALATE 20 MG TAB PO SCH (08:23)
[2022-02-16] MEDS: CYANOCOBALAMIN (B-12) 500 MCG TABLET PO SCH (08:23)
[2022-02-16] MEDS: PANTOprazole 40 MG TAB PO SCH (08:23)
[2022-02-16] MEDS: METOPROLOL TARTRATE 100 MG TAB PO SCH ×2 (08:23→20:22)
[2022-02-16] MEDS: LOSARTAN POTASSIUM 50 MG TAB PO SCH (08:23)
[2022-02-16] MEDS: MESALAMINE 1.2 GM PO SCH ×2 (08:24→20:23)
[2022-02-16] MEDS: DAPTOmycin 225 MG in SYRINGE 0 ML IV SCH (10:26)
[2022-02-16] MEDS ORDERED: SPIRONOLACTONE 25 MG TAB PO ONE (11:53)
--- NOTE | 2022-02-16 11:55 | Hospitalist Progress Note ---
Date of Service February 16, 2022 Assessment & Plan (1) Cellulitis of right leg: Plan: Cont to clinically improve. Cont IV rocephin. Cont IV daptomycin. Suspect we can change to PO abx tomorrow. Elevate legs when in bed. (2) Hyponatremia: Plan: Na level stable. 132 today. Volume status euvolemic once again. Repeat BMP in am. urine osm, serum osm, urine Na noted. 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 (3) Macrocytic anemia: Plan: Both B12 and folate technically wnl but nearly deficient. Started supplementation - folic acid 1mg daily; b12 1000mcg daily. CBC in am for stability. 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 Cont mesalamine and Budesonide. No issues at this time. See below regarding hematochezia. (5) HTN (hypertension): Plan: Resume aldactone today. Cont Losartan and metoprolol. (6) Factor 5 Leiden mutation, heterozygous: Plan: On Apixaban indefinitely Doppler here neg for DVT (RLE) (7) Chronic deep vein thrombosis (DVT): Plan: On Apixaban 5mg BID chronically (8) Chronic pulmonary embolism: Plan: with a h/o saddle embolus On Apixaban (9) Hypomagnesemia: Plan: repleted resolved (10) Hematochezia: Plan: 1 episode, painless, occurred 02/15/22 last colonoscopy 2016 without any features that would lead to rectal bleeding given that 5 years have passed since last endoscopy she could have certainly developed something new in the distal small bowel or colon given high risk of holding her Eliquis will simply observe for additional episodes, trend H/H, etc. microscopic colitis does not cause BRBPR fortunately no bleeding overnight or today repeat cbc in am; monitor closely sees [facility] for microscopic colitis Plan daughter updated at bedside yesterday appreciate PT/OT evals should be able to return home at d/c - tomorrow if no bleeding and leg looks good? add melatonin for sleep Admission and Anticipated Discharge Date Admission Date: February 12, 2022 Subjective patient with uneventful night, but did not sleep well she is tired this am because of such she has seen no further rectal bleeding last 2 stools grossly wnl her RLE does NOT hurt able to ambulate without difficulty eating well although she doesn't eat large portions no dyspnea no HILTON no other new complaints Review of Systems Review of Systems: gen - no fevers, no chills; good energy cv - no orthopnea, no chest pain pulm - no cough, no dyspnea GI - no nausea or emesis; no pain Physical Exam Physical Exam: gen - NAD, looks tired; very pleasant neck - no JVD mouth - MMM heart - RRR, s1 s2, no murmur lungs - CTA b/l abd - soft NT ND BS+ ext - mild edema right foot and right myers/leg - improved from yesterday, pulses 2+ b/l feet skin - venous stasis changes b/l legs with venous pooling, RLE>LLE; minimal residual cellulitis right foot with erythema of ankle only psych - a/o x 3 Results & Data Results & Data ([facility]) Vital Signs (Past 12 Hours) Vital Signs Temp Pulse Pulse Resp BP BP Pulse Ox 02/16/22 11:29 36.8 C 63 18 121/70 97 02/16/22 09:42 36.6 C 62 24 113/74 100 02/16/22 09:11 71 119/68 02/16/22 08:35 36.6 C 66 18 164/109 H 97 O2 Del Method 02/16/22 11:29 Room Air 02/16/22 09:42 Room Air 02/16/22 09:11 02/16/22 08:35 Room Air Laboratory Results Laboratory Results - last 24 hr 02/16/22 02/16/22 05:54 05:54 WBC 6.48 RBC 2.86 L Hgb 10.2 L Hct 28.7 L MCV 100.3 H MCH 35.7 H MCHC 35.5 RDW Std Deviation 49.8 H RDW Coeff of Gissell 13.6 Plt Count 159 MPV 11.6 Sodium 132 L Potassium 3.6 Chloride 104 Carbon Dioxide 22 Anion Gap 6 BUN 12 Creatinine 0.90 Est Cr Clr Drug Dosing 38.0 Est GFR ( Amer) 66.6 Est GFR (Non-Af Amer) 57.5 BUN/Creatinine Ratio 13.3 Glucose 84 Calcium 8.4 L Diagnostic Findings blood cultures negative PG Care Time/CCT Total # of Minutes Spent Total Time Spent with Patient: Total time spent is greater than 50% in coordination of care (as documented) at patient's floor/unit and/or counseling patient: Coding Level of Care Code 92122 Subseq Hosp Care Lvl 2 Diagnoses Cellulitis of right leg L03.115 Hyponatremia E87.1 Macrocytic anemia D53.9 Chronic diarrhea K52.9 HTN (hypertension) I10 Factor 5 Leiden mutation, heterozygous D68.51 Chronic deep vein thrombosis (DVT) I82.509 Chronic pulmonary embolism I27.82 Hypomagnesemia E83.42 Hematochezia K92.1
[2022-02-16] MEDS: ADVANCED PROBIOTIC 1250 MG CAPSULE PO SCH (12:30)
[2022-02-16] MEDS: cefTRIAXone SODIUM 1,000 MG in DEXTROSE 5% 50 ML IV SCH (12:35)
[2022-02-16] MEDS ORDERED: MELATONIN 3 MG TAB PO SCH (21:00)
[2022-02-17 08:14] LABS: Hematocrit (blood only) 29.3 % (34.1-44.9); Hemoglobin 10.1 g/dl (12.0-16.0); Mean Corpuscular Hemoglobin 35.6 pg (25.0-34.0); Mean Corpuscular Hgb Conc 34.5 g/dL (32.0-36.0); Mean Corpuscular Volume 103.2 fL (80.0-100.0); Mean Platelet Volume 11.1 fL (9.4-12.3); Platelet Count 173 K/uL (130-400); RDW Coefficient of Variation 14.2 % (11.5-14.5); RDW Standard Deviation 53.6 fL (36.4-46.3); Red Blood Count 2.84 M/uL (3.93-5.22); White Blood Count 4.68 K/ul (4.8-10.8)
[2022-02-17] MEDS: BUDESONIDE EC 3 MG CAP PO SCH (08:44)
[2022-02-17] MEDS: ESCITALOPRAM OXALATE 20 MG TAB PO SCH (08:44)
[2022-02-17] MEDS: CYANOCOBALAMIN (B-12) 500 MCG TABLET PO SCH (08:44)
[2022-02-17] MEDS: LOSARTAN POTASSIUM 50 MG TAB PO SCH (08:45)
[2022-02-17] MEDS: FOLIC ACID 1 MG TAB PO SCH (08:45)
[2022-02-17] MEDS: METOPROLOL TARTRATE 100 MG TAB PO SCH (08:45)
[2022-02-17] MEDS: APIXABAN 5 MG TABLET PO SCH (08:46)
[2022-02-17] MEDS: ACETAMINOPHEN 500 MG TAB PO SCH (08:46)
[2022-02-17] MEDS: PANTOprazole 40 MG TAB PO SCH (08:46)
[2022-02-17] MEDS: MESALAMINE 1.2 GM PO SCH (08:47)
[2022-02-17] MEDS: ADVANCED PROBIOTIC 1250 MG CAPSULE PO SCH (08:47)
[2022-02-17] MEDS: SPIRONOLACTONE 25 MG TAB PO SCH (08:48)
[2022-02-17 09:39] LABS: BUN Creatinine Ratio 13.2 (10-20); Calcium 8.4 mg/dl (8.5-10.1); Creatinine Clr Calc Pharmacy 32.3 ml/min; Est GFR (African American) 54.7 ml/min; Est GFR (Non-African American) 47.2 ml/min; Potassium 3.9 mmol/L (3.5-5.1)
[2022-02-17] MEDS: DAPTOmycin 225 MG in SYRINGE 0 ML IV SCH (10:19)
[2022-02-17] MEDS: cefTRIAXone SODIUM 1,000 MG in DEXTROSE 5% 50 ML IV SCH (12:09)
--- NOTE | 2022-02-17 12:26 | Discharge Summary ---
Date of Service date of admission - February 12, 2022 date of discharge - February 17, 2022 Admission HPI Per Admitting Provider This Is an 87-year-old female with a history of factor V Leiden deficiency, DVT and PE, on anticoagulation, hypertension who presents to the hospital today on account of worsening right lower extremity redness and swelling. According to the patient and the daughter from home most of the history was obtained patient noticed that the leg started getting swollen about 3 to 4 days ago. At this redness started about a day after due to the worsening redness pain and swelling the patient decided to come to the hospital for further evaluation. In the emergency department right lower extremity duplex ultrasound did not show any evidence of acute DVT. Blood cultures were obtained patient was apparently started on IV antibiotics and will be admitted to hospital further management. Principal Diagnosis 1. RLE cellulitis 2. 1 episode of rectal bleeding - etiology uncertain, stable H/H 3. Macrocytic anemia with folate/B12 deficiencies Discharge Exam gen - NAD, looks good; very pleasant neck - no JVD mouth - MMM heart - RRR, s1 s2, no murmur lungs - CTA b/l abd - soft NT ND BS+ ext - only mild edema right foot and right myers/leg - improved from prior exams; pulses 2+ b/l feet skin - venous stasis changes b/l legs; minimal residual cellulitis right foot with erythema of ankle only psych - a/o x 3 Discharge Data Allergies Allergy/AdvReac Type Severity Reaction Status Date / Time No Known Drug Allergies Allergy Verified 02/12/22 08:12 Consultations PT OT Ordered Studies Venous Doppler Study 02/12/22 07:41 RIGHT LOWER EXTREMITY VENOUS DOPPLER CLINICAL HISTORY: redness/swelling/pain r/o DVT, hx of PE COMPARISON STUDY: Right lower extremity venous Doppler ultrasound February 17, 2017. TECHNIQUE: Sonography of the deep venous system of the right lower extremity was performed. Compression and augmentation were evaluated. FINDINGS: The right common femoral, superficial femoral and popliteal veins were compressible. Augmentation was normal. Flow was shown within the deep calf vessels. There is a small suspected popliteal cyst which measures 3.5 x 2.1 x 1 cm. IMPRESSION: 1. No evidence of deep venous thrombus within the right lower extremity. 2. Suspected small right popliteal cyst. ACT 112: Negative or not required by law. Electronically signed by: Hubert Nascimento M.D. 02/12/2022 8:41 AM Hospital Course (1) Cellulitis of right leg: Treated with IV rocephin and IV daptomycin with very nice response to such. Received 5 doses of each IV antibiotic. Blood cultures remained negative while here. Pain, swelling, and erythema all improved prior to discharge. She had no evidence of any complicating DVT in the RLE. Transitioned to PO keflex 500mg BID + doxycycline 100mg BID x 5 days each at time of discharge. (2) Hyponatremia: Range 130 to 136 while here, with 136 at time of discharge. Urine osm, serum osm, urine Na suggestive of mild SIADH in addition to mild volume contraction (at time of admission). She has had mild hyponatremia dating back several years. Recommend BMP at time of hospital follow-up for stability. (3) Macrocytic anemia: Both B12 and folate technically wnl but nearly deficient. B12 = 297 Folate = 5.5 Started supplementation - folic acid 1mg daily; B12 1000mcg daily. Advised 1 month of folate supplementation. Advised 6-12 months of B12 supplementation. 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 Cont mesalamine and Budesonide. No issues while here. See below regarding hematochezia. (5) HTN (hypertension): Cont aldactone. Cont Losartan and metoprolol. Labile BPs throughout her stay. (6) Factor 5 Leiden mutation, heterozygous: On Apixaban 5mg BID indefinitely Doppler here neg for RLE DVT (7) Chronic deep vein thrombosis (DVT): On Apixaban 5mg BID chronically (8) Chronic pulmonary embolism: with a h/o saddle embolus On Apixaban 5mg BID (9) Hypomagnesemia: repleted resolved she has h/o low magnesium on several checks in the past advised magnesium oxide supplementation 400mg once daily chronic PPI usage could be contributing to low magnesium; chronic diarrhea could also be contributing (10) Hematochezia: 1 episode, painless, occurred 02/15/22 last colonoscopy 2016 without any features that would lead to rectal bleeding given that 5 years have passed since last endoscopy she could have certainly developed something new in the distal small bowel or colon given high risk of holding her Eliquis (recurrent DVT/PE) her Eliquis was continued cautiously she did NOT have any additional episodes of bleeding later in the stay H/H remained stable microscopic colitis does not cause BRBPR sees [facility] for microscopic colitis recommended f/u with Wanda SMITH at [facility] after discharge for recheck Plan seen by PT/OT and cleared for home Total Time Total Time Spent Total Time Spent (In Minutes): 45 Discharge Plan Discharge Items Patient Disposition: Home - Self-Care Reason For Visit: CELLULITIS Discharge Diagnosis: 1. Cellulitis of right leg - resolving 2. One episode of bright red blood per rectum - recommend GI follow-up with [facility] 3. Folic acid deficiency 4. Vitamin B12 deficiency 5. Low magnesium level Activity: Resume your previous activity Non-emergency contact: Primary Care Provider and Wing Coverer Call non-emergency contact if: you have any medication questions, your symptoms worsen and you have a fever Follow-up/Referrals: Wanda Quezada CRNP [Nurse Practitioner] - (see Ms Quezada within 2 weeks ) Senia Bangura CRNP [Primary Care Provider] - 02/22/22 2:15 pm (4-5 days - recheck of right leg cellulitis ) Diet: Low Fiber Addtl Attending Provider Instructions: Mrs Charles, You were hospitalized for cellulitis of your right leg. Cellulitis is skin infection caused by bacteria. The 2 most common causes of cellulitis are strep and staph infection. You improved nicely with IV antibiotics during your stay. Your blood cultures were negative while here (no bacteria in the blood). During your stay we noticed that you were mildly anemic - your red cells were just mildly low. We checked your vitamin B12 and folic acid levels - both were low. Vitamin B12 deficiency and folic acid deficiency contribute to anemia and are both easy to fix with supplementation. You have a past history of low magnesium levels and your magnesium here was indeed low. 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 I would recommend a daily magnesium supplement. Finally, you had 1 episode of painless bleeding from your rectum. This did not reoccur, and your blood counts were stable otherwise (which suggests no ongoing bleeding). I would recommend you see Wanda Quezada NP, at [facility] in the next couple of weeks for a check-up. Recommendations - 1. antibiotics for your right leg cellulitis - * cephalexin 500mg twice daily x 5 days, first dose AM of 02/18/22 * doxycycline 100mg twice daily x 5 days, first dose AM of 02/18/22 * doxycycline occasionally causes heartburn * it can also cause a rash if you spend a lot of time out in the sun but this is a rare side effect 2. take probiotics once daily x 7 days to help prevent worsening diarrhea from your antibiotics 3. take magnesium oxide 400mg once daily to keep your magnesium levels in normal range; prescription provided 4. take [id number] vitamin B12 -- 1000mcg once daily x 6 months; please have your family doctor repeat your B12 level down the line 5. take folic acid 1mg daily x 30 days (this will be a prescription); please have your family doctor repeat your folic acid level down the line Follow-up - see separate section I would recommend a repeat CBC, BMP, and magnesium level at time of follow-up with your family doctor Return to [facility] if - * you have fevers over 100 degrees * you have any concerns about your right leg or if the cellulitis seems to be coming back * you experience recurrent episodes of rectal bleeding * your diarrhea becomes severe * any other concerns It was my pleasure to care for you at [facility]! Have a nice Thanksgiving later this month, Dr Lambert Pending Studies at Discharge: No Stand-Alone Forms: My [facility], Smoking Cessation Medications and DC Order Prescriptions: New folic acid 1 mg Tablet 1 mg PO QAM Qty: 30 0RF cyanocobalamin (vitamin B-12) 1,000 mcg capsule 1,000 mcg PO DAILY Qty: 90 3RF Rx Instructions: purchase [id number]; take for at least 6 months Saccharomyces boulardii 250 mg capsule 250 mg PO DAILY 7 Days Qty: 7 0RF magnesium oxide 400 mg magnesium tablet 400 mg PO DAILY Qty: 30 5RF Continued losartan 100 mg tablet 100 mg PO QAM metoprolol tartrate 50 mg tablet 100 mg PO BID Eliquis 5 mg tablet 5 mg PO BID Qty: 180 3RF pantoprazole [Protonix] 40 mg tablet,delayed release (DR/EC) 40 mg PO QAM spironolactone 50 mg tablet 25 mg PO QAM pravastatin 20 mg tablet 20 mg PO QAM escitalopram oxalate 20 mg tablet 20 mg PO QAM mesalamine 1.2 gram tablet,delayed release (DR/EC) 4.8 g PO DAILY Ortikos 9 mg capsule, extended release 9 mg PO QAM PRN (Reason: Diarrhea) Discharge Orders: Discharge Order (Routine); Ordered 02/17/22 Ordered By: Stanley Lambert Admission Data Admit Date/Time: 02/12/22 09:54 Attending Provider: Stanley Lambert Admit Provider: Hardeep Zuñiga Primary Care Provider: Senia Bangura Other Providers: Hardeep Zuñiag Other Interventions: Discharge Summary Assessment (RN) Last Done: 02/17/22 14:04 Coding Level of Care Code D/C DAY MANAGEMENT >30 MINS Diagnoses Cellulitis of right leg L03.115 Hyponatremia E87.1 Macrocytic anemia D53.9 Chronic diarrhea K52.9 HTN (hypertension) I10 Factor 5 Leiden mutation, heterozygous D68.51 Chronic deep vein thrombosis (DVT) I82.509 Chronic pulmonary embolism I27.82 Hypomagnesemia E83.42 Hematochezia K92.1
== END 2022-02-17 14:57 | disposition home or self-care (01) | DRG 603 ==
LOC: ED 07:11 → 3E 09:54 → SUATTDRO 09:54 → 3E 11:02

== ENCOUNTER 2023-05-12 11:23 | Observation (INO) ==
--- OUTSIDE RECORDS SUMMARY | 2023-05-12 11:29 | External Medical Summary | Continuity of Care Document ---
Author Name Unknown Organization [facility] [address] [place] [address] [facility], [place] [id number] Care Team Providers Care Automatic Profile Sander Operator Name Role Phone Senia Bangura Primary Care Physician [phone] [id number] Date(s): 02/07/23 - 02/07/[address] [facility] [address] [facility] [address], [facility] [place] [address] [place], [place] [phone] Encounter Diagnosis Essential (primary) hypertension(Final) - Hyperlipidemia, unspecified(Final) - Discharge Disposition: Home or Self Care Attending Physician: LUIS Bangura Shari A Referring Physician: LUIS Bangura Shari A Allergies, Adverse Reactions, Alerts No Known Allergies Immunizations Given and Recorded Vaccine Date Status Refusal Reason influenza virus vaccine, inactivated 01/18/23 Give n influenza virus vaccine, inactivated 1 01/17/22 Gi irene influenza virus vaccine, inactivated 12/28/20 Give n influenza virus vaccine, inactivated 01/03/17 Give n influenza virus vaccine, inactivated 01/14/16 Give n influenza virus vaccine, inactivated 02/04/15 Give n SARS-CoV-2 (COVID-19) mRNA BNT-162b2 vax 2 02/24/21 Recorded SARS-CoV-2 (COVID-19) mRNA BNT-162b2 vax 3 06/16/20 Recorded zoster vaccine, inactivated 4 02/18/20 Recorded zoster vaccine, inactivated 5 12/02/19 Recorded pneumococcal 13-valent vaccine 09/08/19 Given tetanus/diphtheria/pertuss, acel (Tdap) 6 10/05/18 Recorded pneumococcal 23-valent vaccine 05/13/14 Given tetanus toxoids-diphtheria, Td (Adult) 01/19/11 Gi irene 1Result Comment: Florence Tejeda LPN 2Result Comment: 2021-04-05: Historical information-source unspecified 3Result Comment: 2020-11-19: Historical information-source unspecified 4Result Comment: 2020-11-19: Historical information-source unspecified 5Result Comment: 2020-11-19: Historical information-source unspecified 6Result Comment: 2020-11-19: Historical information-source unspecified Medications budesonide 3 mg oral delayed release capsule Start: 10/19/22 12:29:00 EDT, 3 cap, PO, q48h, Disp# 135 cap, Refills: 1, Pharmacy: [facility] #[id number] Start Date: 10/19/22 Stop Date: 04/17/23 Status: Ordered Eliquis 2.5 mg oral tablet take 1 tablet by mouth twice a day Start Date: 01/18/23 Status: Ordered Eliquis 5 mg oral tablet Start: 09/14/18 12:52:00 EDT Start Date: 09/14/18 Status: Ordered escitalopram 20 mg oral tablet Start: 09/18/22 14:06:00 EDT, See Instructions, Disp# 90 tab, Refills: 2, take 1 tablet by mouth once daily, Pharmacy: [facility] #[id number] Start Date: 09/18/22 Status: Ordered hydrOXYzine hydrochloride 10 mg oral tablet Start: 03/01/21 14:07:00 EST, 1 tab, PO, tid, Disp# 30 tab, Refills: 3, PRN: as needed for anxiety,Pharmacy: [facility] Start Date: 03/01/21 Status: Ordered losartan 100 mg oral tablet Start: 10/17/22 15:51:00 EDT, See Instructions, Disp# 90 tab, Refills: 1, take 1 tablet by mouth every morning, Pharmacy: [facility] #[id number] Start Date: 10/17/22 Status: Ordered magnesium oxide 400 mg (241.3 mg elemental magnesium) oral tablet Start: 06/22/20 14:35:00 EDT, 1 tab, PO, Daily, Disp# 90 tab, Refills: 3, Pharmacy: [facility] Start Date: 06/22/20 Stop Date: 06/17/21 Status: Ordered mesalamine 1.2 g oral delayed release tablet Start: 10/19/22 12:33:00 EDT, 2 tab, PO, Daily, Disp# 180 tab, Refills: 1, Pharmacy: [facility] #[id number] Start Date: 10/19/22 Stop Date: 04/17/23 Status: Ordered Metoprolol Tartrate 50 mg oral tablet Start: 12/29/22 10:14:00 EDT, See Instructions, Disp# 180 tab, Refills: 2, take 2 tablets by mouth every morning and 1 tablet every evening, Pharmacy: [facility] #[id number] Start Date: 12/29/22 Status: Ordered pravastatin 20 mg oral tablet See Instructions, Disp# 90 tab, Refills: 2, take 1 tablet by mouth once daily, Pharmacy: [facility] [place] [address] Start Date: 07/26/21 Status: Ordered spironolactone 25 mg oral tablet Start: 09/18/22 14:06:00 EDT, See Instructions, Disp# 90 tab, Refills: 2, take 1 tablet by mouth once daily, Pharmacy: [facility] #[id number] Start Date: 09/18/22 Status: Ordered Problem List Condition Confirmation Course Effective Dates Status H ealth Status Informant Anxiety Confirmed Active Benign hypertension Confirmed Active Carotid atherosclerosis Confirmed Active Changing skin lesion Confirmed Active Chronic kidney disease stage 3A (disorder) Confirmed Active Collagenous colitis Confirmed Active DJD (degenerative joint disease), ankle and foot Confirmed Active Edema Confirmed Active S/P total hip arthroplasty Confirmed Active Hyperlipidemia Confirmed Active Hypertension Confirmed Active Spondylolisthesis, lumbar region Confirmed Active Ophthalmic herpes simplex Confirmed Active Osteoarthritis of hip Confirmed Active Osteoarthritis of knee Confirmed Active PVD (peripheral vascular disease) Confirmed Active Pulmonary hypertension Confirmed Active DEPRESSION Confirmed Active Leg swelling Confirmed Active Dry eye syndrome Confirmed Active Procedures Procedure Date Related Diagnosis Body Site Status Mohs' micrographic surgery 08/22/21 Completed Shave biopsy and cauterization of skin 07/12/21 Completed EGD - Esophagogastroduodenoscopy 06/09/21 Completed Laparoscopy 1 06/09/21 Completed Upper GI endoscopy 2 06/14/19 Comp leted Upper GI endoscopy 3 04/15/19 Comp leted Chest X-ray 4 10/05/[address] of brain 5 10/05/[address] of cervical spine 6 10/05/[address] of lumbar spine 7 10/05/[address] angiography of chest with contrast 8 10/20/17 Completed Doppler ultrasonography of v enous structure of limb 9 02/17/[address] - Computerised tomography ,abeomen and pelvis combo pancreas protocol 07/17/[address] of abdomen and pelvis 10 07/17/[address] Angiogram of the chest 11 06/29/16 Completed Ultrasound-Right lower extre mity venous 12 06/29/16 Completed Colonoscopy 04/25/16 Completed Shave biopsy 04/24/16 Completed Hammer toe operation 09/11/14 Comp leted Appendectomy 2013 Completed hammer toe surgery - right 07/23/12 Completed Cataracts, bilateral Comp leted Hysterectomy Completed Hysterectomy and bilateral salpingo-oophorectomy sample Com pleted right hip replacement - september 2011 Completed Tonsillectomy Completed Tooth extraction, complete upper Completed 1ventral hernia. 2Z-line regular, 36cm from the incisors. Small hiatal hernia. Normal examined duodenum. No specimens collected. 3Z-line regular, 37 cm from the incisors. Normal esophagus. Non-bleeding gastric ulcers with pigmented material. Normal examined duodenum. No specimens collected. 4Cardiomegaly and emphysema with no acute cardiopulmonary abnormality. 5There is no hemorrhage, mass effect, or evidence of acute territorial ischemia by CT criteria. 61. There is no evidence of fracture or subluxation involving the cervical spine. 2. Osteopenia and spondylotic change as above. 71. There is no evidence of fracture or malalignment involving the lumbar spine. 2. A mild chronic superior endplate compression deformity of L1 is again noted. 3. Osteopenia and spondylotic change as above. 8No evidence of pulmonary embolus. Resolution of pulmonary emboli seen on prior exam. Minimal bibasilar atelectasis. Minimal subsegmental bronchial debris in the left lower lobe, either mucus plugging or minimal aspiration. Evidence of prior granulomatous infection. 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 101) There are no acute infectious or inflammatory findings in the abdomen or pelvis. 2) Segmental and subsegmental pulmonary emboli are present within branches of the right lower lobe pulmonary artery. This appears diminished in size from the 06/29/[address] scan. 3) Unremarkable assessment of the pancreas. 4) There is markedly asymmetric cortical atrophy of the left kidney as compared to the right. 5) Additional findings as above. 11Acute bilateral pulmonary embolisim. There is a moderate thrombus burden. A saddie embolus is visualized 12Extensive occlusive right lower extremity deep venous thrombosis as in report Results Laboratory List Name Date Comprehensive Metabolic Panel (COMP META B PANEL) 02/07/23 Lipid Profile (LIPOPROTEINS) 02/07/23 Most recent to oldest [Reference Range]: 1 eGFR CKD-EPI [>60 mL/min/1.73 m2] 52 mL/ min/1.73 m2 1 *LOW* (02/07/23: AM) Non-HDL 149 mg/dL 2 (02/07/23 11: AM) Estimated CrCl 32.60 mL/min (02/07/23 12:00 PM) Anion Gap [5-14 mmol/L] 5 mmol/L (02/07/23 AM) Alb [3.5-5.0 g/dL] 3.9 g/dL (02/07/23 AM) Alk Phos [38-126 unit/L] 68 unit/L (02/07/23: AM) ALT [<35 unit/L] 22 unit/L (02/07/23 11: AM) AST [15-46 unit/L] 31 unit/L (02/07/23 11: AM) BUN [7-20 mg/dL] 14 mg/dL (02/07/23: AM) Ca [8.4-10.2 mg/dL] 9.3 mg/dL (02/07/23: AM) Chol/HDL 4 (02/07/23 AM) Chol [125-200 mg/dL] 201 mg/dL *HI* (02/07/23: AM) Cl- [96-107 mmol/L] 106 mmol/L (02/07/23: AM) HCO3 [22-30 mmol/L] 26 mmol/L (02/07/23 AM) Cret [0.60-1.00 mg/dL] 1.03 mg/dL *HI* (02/07/23: AM) Glu [74-106 mg/dL] 98 mg/dL (02/07/23 AM) HDL [>35 mg/dL] 52 mg/dL (02/07/23 11:19 AM) K [3.5-5.1 mmol/L] 4.5 mmol/L (02/07/23 11:19 AM) LDL Chol, Calculated [50-130 mg/dL] 126 mg/dL (02/07/23 11:19 AM) Na [137-145 mmol/L] 137 mmol/L (02/07/23 11:19 AM) T Bili [0.2-1.3 mg/dL] 1.2 mg/dL (02/07/23 11:19 AM) Prot [6.3-8.2 g/dL] 7.2 g/dL (02/07/23 11:19 AM) TG [<200 mg/dL] 117 mg/dL (02/07/23 11:19 AM) 1Result Comment: Testing Performed By: Dept of Pathology [facility], [address] [place] [id number] 2Result Comment: Testing Performed By: Dept of Pathology [facility], [address] [place] [address] Social History Social History Type Response Tobacco Former smoker 1 Smoking Status Never smoked cigaret sharad Sex Female 1Quit smoking over 40 years ago Patient Care team information Care Team Personnel Name: DO Ritchie Franklin J Position: Physician - Family Med Member Role: Lifetime Relationship Address: Address: [address] [facility] [address] [place] [address] [place] Name: SEFERINO Gamboa Lynn Position: Physician Scale Clerk Exempt - Vasc Surg Member Role: Lifetime Relationship Address: Address: [address] [facility] [address] [place] [address] [place] Name: ZULEIMA Conrad Christina L Position: Physician - Podiatry Member Role: Lifetime Relationship Address: Address: [address] [facility] [address] [place] [address] [place] Name: LUIS Bangura Shari A Position: Nurse Pract - Family Med Member Role: Lifetime Relationship Address: Address: [address] [facility] [address] [place] [address] Care Team Related Persons Name: CECILIA GORDON Address: home [address] [place], [place] [id number]
--- OUTSIDE RECORDS SUMMARY | 2023-05-12 11:29 | External Medical Summary | Continuity of Care Document ---
Author Name Unknown Organization [address] Address [address] [place] [address] [address] [place] [id number] Care Team Providers Care Dials Inspector Name Role Phone Senia Bangura Primary Care Physician [phone] [id number] Date(s): 01/18/23 - 01/18/[address] [place] [address], [address] [place] [address] [phone] Encounter Diagnosis Anxiety(Discharge Diagnosis) - 01/17/23 Benign hypertension(Discharge Diagnosis) - 01/17/23 Hyperlipidemia(Discharge Diagnosis) - 01/17/23 Hypertension(Discharge Diagnosis) - 01/17/23 PVD (peripheral vascular disease)(Discharge Diagnosis) - 01/17/23 Major depressive disorder, recurrent, in full remission(Discharge Diagnosis) - 01/17/23 Chronic kidney disease stage 3A (disorder)(Discharge Diagnosis) - 01/18/23 Pulmonary hypertension, unspecified(Discharge Diagnosis) - 01/17/23 Body mass index [BMI] 24.0-24.9, adult(Discharge Diagnosis) - 01/18/23 Discharge Disposition: Home or Self Care Attending [...] q48h, Disp# 135 cap, Refills: 1, [facility]acy: [facility] #[id number] Start Date: 10/19/22 Stop Date: 04/17/23 Status: [...] 1 tablet by mouth once daily, Pharmacy: [facility] #[id number] Start Date: 09/18/22 Status: Ordered hydrOXYzine hydrochloride 10 mg oral tablet Start: 03/01/21 14:07:00 EST, 1 tab, PO, tid, Disp# 30 tab, Refills: 3, PRN: as needed for anxiety,Pharmacy: [id number] Start Date: 03/01/21 Status: Ordered losartan 100 mg oral tablet Start: 10/17/22 15:51:00 EDT, See Instructions, Disp# 90 tab, Refills: 1, take 1 tablet by mouth every morning, Pharmacy: [facility] #[id number] Start Date: 10/17/22 Status: Ordered magnesium oxide 400 mg (241.3 mg elemental magnesium) oral tablet Start: 06/22/20 14:35:00 EDT, 1 tab, PO, Daily, Disp# 90 tab, Refills: 3, [facility] Start Date: 06/22/20 Stop Date: 06/17/21 Status: Ordered mesalamine 1.2 g oral delayed release tablet Start: 10/19/22 12:33:00 EDT, 2 tab, PO, Daily, Disp# 180 tab, Refills: 1, Pharmacy: [facility] #[id number] Start Date: 10/19/22 Stop Date: 04/17/23 Status: Ordered Metoprolol Tartrate 50 mg oral tablet Start: 12/29/22 10:14:00 EDT, See Instructions, Disp# 180 tab, Refills: 2, take 2 tablets by mouth every morning and 1 tablet every evening, Pharmacy: [facility] #[id number] Start Date: 12/29/22 Status: Ordered pravastatin 20 mg oral tablet See Instructions, Disp# 90 tab, Refills: 2, take 1 tablet by mouth once daily, [facility] Start Date: 07/26/21 Status: Ordered spironolactone 25 mg oral tablet Start: 09/18/22 14:06:00 EDT, See Instructions, Disp# 90 tab, Refills: 2, take 1 tablet by mouth once daily, Pharmacy: [facility] #[id number] Start Date: 09/18/22 Status: Ordered Mental Status 01/18/23 Barriers to Learning one year None evide nt Mandatory Health Literacy Documentation Yes Health Literacy Communication Barriers N ever Primary Language Syriac Problem List Condition Confirmation Course Effective Dates [...] Confirmed Active Dry eye syndrome Confirmed Active Diagnosis Diagnosis Type Effective Dates Health Status Clinical Service Informant Major depressive disorder, recurrent, in full remission Discharge Diagnosis 01/17/23 Pulmonary hypertension, unspecified Discharge Diagnosis 01/17/23 Anxiety Discharge Diagnosis 01/17/23 Benign hypertension Discharge Diagnosis 01/17/23 Hyperlipidemia Discharge Diagnosis 01/17/23 Hypertension Discharge Diagnosis 01/17/23 PVD (peripheral vascular disease) Discharge Diagnosis 01/17/23 Chronic kidney disease stage 3A (disorder) Discharge Diagnosis 01/18/23 Body mass index [BMI] 24.0-24.9, adult Discharge Diagnosis 01/18/23 Non-Specified Procedures Procedure Date Related Diagnosis Body Site [...] extremity deep venous thrombosis as in report Vital Signs Most recent to oldest [Reference Range]: 1 Height 158 cm (01/18/23 11:21 AM) Patient Weight 60.9 kg (01/18/23: AM) Body Mass Index 24.4 kg/m2 (01/18/23: AM) Temperature [36.5-37.9 DegC] 36.6 DegC (01/18/23: AM) Heart Rate 57 bpm (01/18/23: AM) Respiratory Rate 16 br/min (01/18/23: AM) Blood Pressure 116/62mmHg (01/18/23 11:21 AM) Cuff Pulse Pressure 54 mmHg (01/18/23:21 AM) Social History Social History Type Response Tobacco Former smoker 1 Smoking Status Never smoked cigaret sharad Sex Female 1Quit smoking over 40 years ago Patient Care team information Care Team Personnel Name: DO Ritchie Franklin J Position: Physician - Family Med Member Role: Lifetime Relationship Address: Address: [address] [facility] [address] [place] [address] [place] Name: SEFERINO Gamboa Lynn Position: Physician Commercial Green Retrofit Architect Exempt - Vasc Surg Member Role: Lifetime Relationship Address: Address: [address] [facility] [address] [place] [address] [place] Name: ZULEIMA Conrad Christina L Position: Physician - Podiatry Member Role: Lifetime Relationship Address: Address: [address] [facility] [place] [address] [place] [address] [place] Name: LUIS Bangura Shari A Position: Nurse Pract - Family Med Member Role: Lifetime Relationship Address: Address: [address] [facility] [address] [place] [address] Care Team Related Persons Name: CECILIA GORDON Address: home [address] [place] [address] [address] [place], [place] [id number]
[2023-05-12 12:12] LABS: Basophils # (auto) 0.02 K/uL (0.00-0.20); Basophils % (auto) 0.2 %; Hematocrit (blood only) 43.7 % (37.0-47.0); Hemoglobin 15.2 g/dl (12.0-16.0); Immature Granulocytes # (auto) 0.04 K/uL (0.01-0.20); Immature Granulocytes % (auto) 0.4 %; Lymphocytes # (auto) 1.51 K/uL (1.20-3.40); Lymphocytes % (auto) 13.7 %; Mean Corpuscular Hemoglobin 35.3 pg (25.0-34.0); Mean Corpuscular Hgb Conc 34.8 g/dL (32.0-36.0); Mean Corpuscular Volume 101.4 fL (80.0-100.0); Mean Platelet Volume 12.5 fL (9.4-12.4); Monocytes % (auto) 20.8 %; Neutrophils # (auto) 7.17 K/uL (1.40-6.50); Neutrophils % (auto) 64.9 %; Platelet Count 111 K/uL (130-400); RDW Coefficient of Variation 12.4 % (11.5-14.5); RDW Standard Deviation 46.5 fL (36.4-46.3); Red Blood Count 4.31 M/uL (4.20-5.40); White Blood Count 11.04 K/ul (4.8-10.8)
[2023-05-12] MEDS: DAPTOmycin 225 MG in SYRINGE 0 ML IV SCH (12:21)
[2023-05-12 12:26] LABS: Albumin Globulin Ratio 1.3 (0.9-2); Albumin Level 3.5 gm/dl (3.4-5.0); BUN Creatinine Ratio 11.8 (10-20); Bilirubin,Total 2.1 mg/dl (0.2-1.0); Calcium 8.9 mg/dl (8.6-10.3); Creatinine Clr Calc Pharmacy 39.5 ml/min; Est GFR (African American) 70.9 ml/min; Est GFR (Non-African American) 61.2 ml/min; Globulin 2.6 gm/dl (2.5-4.0); Potassium 3.9 mmol/L (3.5-5.1); Total Protein 6.1 gm/dl (6.0-8.3)
[2023-05-12] MEDS: ACETAMINOPHEN 325 MG TAB PO STA (12:28)
--- NOTE | 2023-05-12 12:43 | History & Physical Report ---
Date of Service May 12, 2023 Assessment & Plan (1) Neck pain: Plan: Right posterior neck pain starting the evening of 05/11 Patient reports history of stiff neck/shots in her neck Lidocaine patch application and removal daily Acetaminophen as needed for pain/fever (2) On anticoagulant therapy: Plan: History of factor V Leiden On Eliquis for DVT PPx, chronic saddle embolus Continue Eliquis (3) Hypertension: Plan: Continue metoprolol 100 mg QAM, 50 mg HS Continue losartan (4) Anxiety: Plan: Continue escitalopram Patient reports she has not been needing her to hydroxyzine (5) Chronic diarrhea: Plan: Under control Continue mesalamine, budesonide (6) Hypomagnesemia: Plan: Magnesium 1.3 Magnesium sulfate 1 g x3 given Recheck a.m. magnesium Plan Disposition: Admit to [facility] DNR/DNI Regular diet VTE PPx: On Eliquis History of Present Illness Chief Complaint: Infection Primary Care Provider: LUIS Mcgovern Obdulia is an 88-year-old female with PMH of HTN, anxiety, DVT, PE, OA, gastritis, compression fracture, lower extremity edema, lower extremity wounds, and cellulitis. She presented from [facility] for cellulitis of the left lower extremity x 1 week. She reports that the redness and swelling has gotten worse, and that while she has no pain at present, she was having a burning sensation yesterday on 05/11. She was prescribed Keflex outpatient on 05/10, and reports she has been taking it. Despite this, she reports that the leg is gotten worse. Hx of cellulitis on her other leg (right leg) 2 years ago. Patient took all of her regular morning medications; no recent change in medications; she reports that she manages her own medications at home. She denies smoking and tobacco use. She endorses mild alcohol use; wine; 1 glass/day. Patient also notes pain in her right, posterior neck. Pain started last night and has been constant. Pain radiates to her right ear. No radiation down her back. She has a pain with turning her head to the right. She rates the pain 9/10 at present, and describes it as a "dull, sharp hurt". No prior injuries or trauma to the head or neck. She reports that she has had stiff neck in the past, and a history of having shots in her neck. Patient is hypertensive at 144/79 at time of admission; vitals otherwise stable. ED course: Daptomycin 225 mg IV Zosyn 3.375 mg IV Tylenol 650 mg p.o. ROS: Patient endorses right neck stiffness/pain and worsening erythema/burning sensation LLE. Patient denies fever, chills, sweating, headache, lightheadedness, dizziness, chest pain, pleuritic CP, SOB, cough, abdominal pain, N/V/D, dysuria, burning with urination, blood in the urine or stool, or numbness/tingling/pain/swelling/erythema in the RLE. Allergies Allergy/AdvReac Type Severity Reaction Status Date / Time No Known Drug Allergies Allergy Verified 09/19/22 13:38 Home Medications Medication Instructions Recorded Confirmed Type escitalopram oxalate 20 mg tablet 20 mg PO QAM 02/17/18 05/12/23 History losartan 100 mg tablet 100 mg PO QAM 07/08/18 05/12/23 History metoprolol tartrate 50 mg tablet 100 mg PO QAM 02/21/21 05/12/23 History mesalamine 1.2 gram tablet,delayed 4.8 g PO DAILY 02/12/22 05/12/23 History release cyanocobalamin (vitamin B-12) 1,000 mcg PO DAILY #90 caps 02/17/22 05/12/23 Rx 1,000 mcg capsule hydroxyzine HCl 10 mg tablet 10 mg PO TID PRN itch/anxiety 05/15/22 05/12/23 History apixaban 2.5 mg tablet 2.5 mg PO BID #180 tabs 09/19/22 05/12/23 Rx spironolactone 25 mg tablet 37.5 mg PO DAILY 09/19/22 05/12/23 History budesonide 3 mg 3 mg PO DAILY 05/12/23 05/12/23 History capsule,delayed,extended release metoprolol tartrate 50 mg tablet 50 mg PO HS 05/12/23 05/12/23 History Past Med/Surg History Medical History (Updated 05/12/23 @ 13:42 by Neftali Perez PA-C) Chronic diarrhea ON MESALAMINE Hematochezia Hypomagnesemia Macrocytic anemia Hyponatremia HTN (hypertension) Chronic pulmonary embolism Chronic deep vein thrombosis (DVT) Cellulitis of right leg Collagenous colitis Lumbago Right lumbar radiculitis Lumbar canal stenosis Multilevel Osteoarthritis Degenerative disc disease On anticoagulant therapy ELIQUIS Pulmonary embolism BILT---REASON FOR ELIQUIS Deep vein thrombosis R LEG Factor 5 Leiden mutation, heterozygous Anxiety Hypertension Surgical History History of total abdominal hysterectomy and bilateral salpingo-oophorectomy Status post right hip replacement History of colonoscopy History of tooth extraction ALL UPPER TEETH History of tonsillectomy and adenoidectomy H/O bilateral cataract extraction History of blepharoplasty BILT Family History Other No significant family history Social History Smoking Status: Never smoker Tobacco Type: Cigarettes Cigarettes Per Day: last smoke 1975; Second Hand Exposure: No; Do You Dip or Chew Tobacco: No; Hx Alcohol Use: Yes Alcohol type: wine Hx Substance Use: No Preferred Language: Kenyan Communication Ability: Effective Visual Impairment: No Limitations 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 Beliefs That Will Affect Care: None marital status: / Current Living Situation: Alone Current Living Situation Comment: [facility] current occupational status: retired Feels Safe at Home: Yes Safety Concerns: Feels Safe At This Time Diet: regular Assistive Devices: Walker Review of Systems 2 Review of Systems: See HPI above Physical Exam 2 Physical Exam: General: no acute distress; non-toxic appearing; well-nourished; cooperative HEENT: normocephalic, atraumatic; no scleral icterus; PERRLA; pupils are small, pinpoint; dry mucus membrane; vision and hearing grossly intact Neck: supple; pain with turning neck to the right; right posterior neck TTP; no lymphadenopathy; trachea midline Skin: warm, dry without signs of tenting; no cyanosis; no rashes, bruising CV: chest wall NTP; RRR; S1/S2 normal; no murmurs/rubs/gallops; pulses intact and symmetric at radial, DP, and PT Lungs: no acute respiratory distress; symmetrical chest wall expansion; clear breath sounds across all lung kapoor w/o adventitious sounds; no wheezing ABD: Soft, NTP; BS present; no rebound/guarding; no ascites; no distention; negative CVA tenderness RLE: Erythematous, swollen, warm to touch (see photo below); non-malodorous; 3 dark red blisters (1-3cm in diameter) in various stages of healing/scabbing over LLE: Nonerythematous, brown (ends of the ankle) MSK: no tics or fasciculations; patient demonstrates ability to wiggle toes bilaterally Neuro: A&Ox3; normal mood and affect; fluent speech; no focal deficits; sensation grossly intact in the LEs b/l (neurovascularly intact at the DP bilaterally) Results & Data Results & Data Vital Signs (Past 12 Hours) Vital Signs Temp Pulse Pulse Resp BP BP Pulse Ox 05/12/23 12:19 72 18 144/79 H 93 05/12/23 12:08 68 05/12/23 11:42 66 20 163/99 H 95 05/12/23 11:29 36.9 C 69 20 166/90 H 95 O2 Del Method 05/12/23 12:19 Room Air 05/12/23 12:08 05/12/23 11:42 Room Air 05/12/23 11:29 Room Air Laboratory Results Abnormal lab results 05/12/23 Range/Units 11:50 WBC 11.04 H (4.8-10.8) K/ul MCV 101.4 H (80.0-100.0) fL MCH 35.3 H (25.0-34.0) pg RDW Std Deviation 46.5 H (36.4-46.3) fL Plt Count 111 L (130-400) K/uL MPV 12.5 H (9.4-12.4) fL Neut # (Auto) 7.17 H (1.40-6.50) K/uL [place] # (Auto) 2.30 H (0.11-0.59) K/uL Sodium 134 L (136-145) mmol/L Glucose 103 H (70-99(Fasting)) mg/dl Total Bilirubin 2.1 H (0.2-1.0) mg/dl Code Status & VTE Plan Code Status DNR/DNI VTE Prophylaxis Plan VTE Prophylaxis will be ordered: Yes Supervising Physician Co-Signing Physician Notes Patient seen and examined, chart reviewed, case discussed with Neftali Perez PA-C and I agree with the assessment and plan as above except as otherwise noted Labs and images reviewed 88-year-old female presents with cellulitis and worsening left lower extremity swelling around 1 week Photos on HPI PE. Blood cultures pending, Dapto/Zosyn continued. Patient is anticoagulated on Eliquis with which she has been compliant. Wound cultures pending. Nontoxic, breathing comfortably, without tachycardia on admission. Patient does have chronic neck pain without rigidity/photosensitivity or signs of meningitis. Symptomatic pain control with Tylenol/lidocaine as noted. agree with assessment and management as above. PG Care Time/CCT Total # of Minutes Spent Total Time Spent with Patient: Total time spent is greater than 50% in coordination of care (as documented) at patient's floor/unit and/or counseling patient: Coding [place] [address] INT INP/OBS CARE 2/55MIN Patient Type Established Medical Decision Making Moderate Complexity Diagnoses Neck pain M54.2 On anticoagulant therapy Z79.01 Hypertension I10 Hypertension type: primary hypertension Anxiety F41.9 Chronic diarrhea K52.9 Hypomagnesemia E83.42 (3) Hypertension Hypertension type: primary hypertension Qualified Code(s): I10 - Essential (primary) hypertension
[2023-05-12] MEDS: PIPERACILLIN IV ONE (13:21)
[2023-05-12] MEDS: TAZOBACTAM IV ONE (13:21)
[2023-05-12] MEDS: LIDOCAINE 5% 1 PATCH TD STA (13:28)
[2023-05-12 13:42] LABS: C Reactive Protein 15.71 mg/dl (0-0.5); Magnesium 1.3 mg/dl (1.7-2.4)
[2023-05-12] MEDS ORDERED: ONDANSETRON INJ 2 MG/ML 2 ML VIAL IV PRN (14:08)
[2023-05-12] MEDS: MAGNESIUM SULFATE / D5W 1 GM/100 ML BAG IV SCH (15:13)
[2023-05-12] MEDS: PIPER/TAZO 4.5g in D5W MINI-B 100 ML IV SCH (17:14)
[2023-05-12] MEDS: HYDROmorphone INJ 0.5 MG/0.5 ML SYR IV PRN (18:05)
[2023-05-12] MEDS: APIXABAN 2.5 MG TAB PO SCH (20:24)
[2023-05-12] MEDS: METOPROLOL TARTRATE 50 MG TAB PO SCH (20:24)
--- NOTE | 2023-05-12 20:54 | Emergency Department Note ---
ED Provider Note History of Present Illness Chief Complaint: Infection Stated Complaint: CELLULITIS LEFT LEG Time Seen by Provider: 05/12/23 11:32 Source: patient Mode of arrival: ambulatory Limitations: no limitations This patient is an 88-year-old female who presents to the emergency department for evaluation of redness in her left lower leg. The patient reports that this started about 4 days ago. She states that they became red, swollen and painful. She was seen by her PCP 2 days ago and started on Keflex for this. She has been taking this as prescribed but feels her symptoms have slightly worsened. She denies any fevers or systemic symptoms. Home Medications Medication Instructions Recorded Confirmed Type escitalopram oxalate 20 mg tablet 20 mg PO QAM 02/17/18 05/12/23 History losartan 100 mg tablet 100 mg PO QAM 07/08/18 05/12/23 History metoprolol tartrate 50 mg tablet 100 mg PO QAM 02/21/21 05/12/23 History mesalamine 1.2 gram tablet,delayed 4.8 g PO DAILY 02/12/22 05/12/23 History release cyanocobalamin (vitamin B-12) 1,000 mcg PO DAILY #90 caps 02/17/22 05/12/23 Rx 1,000 mcg capsule hydroxyzine HCl 10 mg tablet 10 mg PO TID PRN itch/anxiety 05/15/22 05/12/23 History apixaban 2.5 mg tablet 2.5 mg PO BID #180 tabs 09/19/22 05/12/23 Rx spironolactone 25 mg tablet 37.5 mg PO DAILY 09/19/22 05/12/23 History budesonide 3 mg 3 mg PO DAILY 05/12/23 05/12/23 History capsule,delayed,extended release metoprolol tartrate 50 mg tablet 50 mg PO HS 05/12/23 05/12/23 History Allergies Allergy/AdvReac Type Severity Reaction Status Date / Time No Known Drug Allergies Allergy Verified 09/19/22 13:38 Past Med/Surg History Medical History (Updated 05/12/23 @ 13:42 by Neftali Perez PA-C) Chronic diarrhea ON MESALAMINE Hematochezia Hypomagnesemia Macrocytic anemia Hyponatremia HTN (hypertension) Chronic pulmonary embolism Chronic deep vein thrombosis (DVT) Cellulitis of right leg Collagenous colitis Lumbago Right lumbar radiculitis Lumbar canal stenosis Multilevel Osteoarthritis Degenerative disc disease On anticoagulant therapy ELIQUIS Pulmonary embolism BILT---REASON FOR ELIQUIS Deep vein thrombosis R LEG Factor 5 Leiden mutation, heterozygous Anxiety Hypertension Surgical History History of total abdominal hysterectomy and bilateral salpingo-oophorectomy Status post right hip replacement History of colonoscopy History of tooth extraction ALL UPPER TEETH History of tonsillectomy and adenoidectomy H/O bilateral cataract extraction History of blepharoplasty BILT Family History Other No significant family history Social History Smoking Status: Never smoker Tobacco Type: Cigarettes Cigarettes Per Day: last smoke 1975; Second Hand Exposure: No; Do You Dip or Chew Tobacco: No; Hx Alcohol Use: Yes Alcohol type: wine Hx Substance Use: No Preferred Language: Frisian Communication Ability: Effective Visual Impairment: No Limitations 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: Normal 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 Beliefs That Will Affect Care: None marital status: / Current Living Situation: Alone Current Living Situation Comment: [facility] current occupational status: retired Feels Safe at Home: Yes Safety Concerns: Feels Safe At This Time Diet: regular Assistive Devices: Walker Physical Exam Vital Signs Vital Signs - 24 hr 05/12/23 11:29 05/12/23 11:42 05/12/23 12:08 Temperature 36.9 C Temperature Source Temporal Artery Scan Pulse Rate 69 68 Pulse Rate [Apical] 66 Respiratory Rate 20 20 Respiratory Effort / Characteristics Non-Labored Respiratory Depth Normal Blood Pressure 166/90 H Blood Pressure [Right Arm] 163/99 H Blood Pressure Mean 115 Blood Pressure Mean [Right Arm] 120 Pulse Oximetry 95 95 Oxygen Delivery Method Room Air Room Air Sepsis Recent Fever Within 48 Hours No Sepsis New/Unexplained Change in Mental Status N/A Sepsis Action Taken by Nursing No Action Required 05/12/23 12:19 Temperature Temperature Source Pulse Rate Pulse Rate [Apical] 72 Respiratory Rate 18 Respiratory Effort / Characteristics Non-Labored Respiratory Depth Normal Blood Pressure Blood Pressure [Right Arm] 144/79 H Blood Pressure Mean Blood Pressure Mean [Right Arm] 100 Pulse Oximetry 93 Oxygen Delivery Method Room Air Sepsis Recent Fever Within 48 Hours Sepsis New/Unexplained Change in Mental Status Sepsis Action Taken by Nursing VITALS: Vitals are noted on the nurse's note and reviewed by myself. GENERAL: This is an 88-year-old female, in no acute distress, well-developed well-nourished. NECK: Supple without nuchal rigidity. No lymphadenopathy. Cervical spine is nontender. HEART: Regular rate and rhythm without murmurs gallops or rubs. LUNGS: Clear to auscultation bilaterally without wheezes, rales or rhonchi. EXTREMITIES: Diffuse, nonpitting edema to the left lower extremity. There is erythema of the left lower extremity extending from the knee to the foot. A few bullae present over the anterior/lateral aspect of the leg. NEURO: Patient was alert and oriented to person place and time. Course Administered Medications Apixaban (Apixaban 2.5 Mg Tab) 2.5 mg PO BID [facility] Stop: 06/11/23 20:59 Last Admin: 05/13/23 20:33 Dose: 2.5 mg Documented By: Admin: 05/13/23 08:55 Dose: 2.5 mg Documented By: Admin: 05/12/23 20:24 Dose: 2.5 mg Documented By: NAVJOT Budesonide (Budesonide Ec 3 Mg Cap) 9 mg PO Q48H [place] Stop: 06/12/23 08:59 Last Admin: 05/13/23 08:55 Dose: 9 mg Documented By: ANURADHA Escitalopram Oxalate (Escitalopram Oxalate 20 Mg Tab) 20 mg PO QAM [facility] Stop: 06/12/23 08:59 Last Admin: 05/13/23 08:56 Dose: 20 mg Documented By: ANURADHA Hydromorphone HCl (Hydromorphone Inj 0.5 Mg/0.5 Ml Syr) 0.25 mg IV Q6H PRN PRN Reason: Pain Stop: 05/26/23 17:39 Last Admin: 05/13/23 09:17 Dose: 0.25 mg Documented By: Admin: 05/13/23 00:11 Dose: 0.25 mg Documented By: Admin: 05/12/23 18:05 Dose: 0.25 mg Documented By: JOVANI Daptomycin 225 mg/ Syringe 4.5 mls @ 2.25 mls/min IV Q24H [facility]; Protocol Stop: 05/14/23 11:59 Last Admin: 05/13/23 11:35 Dose: 2.25 mls/min Documented By: Admin: 05/12/23 12:21 Dose: 2.25 mls/min Documented By: SU Piperacillin Sod/Tazobactam (Sod 4.5 gm/ Dextrose) 100 mls @ 25 mls/hr IV Q8H [facility]; Protocol Stop: 05/19/23 17:29 Last Admin: 05/13/23 17:15 Dose: 25 mls/hr Documented By: Infusion: 05/13/23 12:22 Dose: Infused Documented By: Admin: 05/13/23 08:57 Dose: 25 mls/hr Documented By: Infusion: 05/13/23 05:21 Dose: Infused Documented By: Admin: 05/13/23 01:10 Dose: 25 mls/hr Documented By: Infusion: 05/12/23 21:23 Dose: Infused Documented By: Admin: 05/12/23 17:14 Dose: 25 mls/hr Documented By: JOVANI Lidocaine (Lidocaine 5% 1 Patch) 1 patch TD [facility] Stop: 06/12/23 08:59 Last Admin: 05/13/23 08:54 Dose: 1 patch Documented By: ANURADHA Losartan Potassium (Losartan Potassium 50 Mg Tab) 100 mg PO [facility] Stop: 06/12/23 08:59 Last Admin: 05/13/23 08:57 Dose: 100 mg Documented By: ANURADHA Metoprolol Tartrate (Metoprolol Tartrate 50 Mg Tab) 50 mg PO [facility] Stop: 06/11/23 20:59 Last Admin: 05/13/23 20:34 Dose: 50 mg Documented By: Admin: 05/12/23 20:24 Dose: 50 mg Documented By: NAVJOT Metoprolol Tartrate (Metoprolol Tartrate 100 Mg Tab) 100 mg PO [facility] Stop: 06/12/23 08:59 Last Admin: 05/13/23 08:55 Dose: 100 mg Documented By: ANURADHA Miscellaneous (Remove Lidoderm Patch) 1 each N/A DAILY@2100 [facility] Stop: 06/11/23 20:59 Last Admin: 05/13/23 20:34 Dose: 1 each Documented By: Admin: 05/12/23 19:26 Dose: 1 each Documented By: NAVJOT Miscellelzbieta (Mesalamine~Order Awaiting Action) 1 each N/A QS [facility] Stop: 06/11/23 15:59 Last Admin: 05/13/23 11:36 Dose: Not Given Documented By: Admin: 05/13/23 07:10 Dose: Not Given Documented By: Admin: 05/12/23 23:48 Dose: Not Given Documented By: Admin: 05/12/23 17:12 Dose: Not Given Documented By: JOVANI Miscellelzbieta (Remove Lidoderm Patch) 1 each N/A DAILY@2100 [facility] Stop: 06/11/23 20:59 Last Admin: 05/13/23 20:35 Dose: Not Given Documented By: Admin: 05/12/23 20:25 Dose: 1 each Documented By: NAVJOT Spironolactone (Spironolactone 12.5 Mg Tab) 37.5 mg PO DAILY [place] Stop: 06/12/23 08:59 Last Admin: 05/13/23 08:56 Dose: 37.5 mg Documented By: ANURADHA Discontinued Medications Acetaminophen (Acetaminophen 325 Mg Tab) 650 mg PO NOW STA Stop: 05/12/23 12:26 Last Admin: 05/12/23 12:28 Dose: 650 mg Documented By: SU Piperacillin Sod/Tazobactam (Sod 3.375 gm/ Dextrose) 115 mls @ 230 mls/hr IV NOW ONE Stop: 05/12/23 12:59 Last Infusion: 05/12/23 13:47 Dose: Infused Documented By: Admin: 05/12/23 13:21 Dose: 230 mls/hr Documented By: SU Magnesium Sulfate/Dextrose (Magnesium Sulfate / D5w) 1 gm in 100 mls @ 50 mls/hr IV Q2H [place] Stop: 05/12/23 19:44 Last Infusion: 05/12/23 21:13 Dose: Infused Documented By: Admin: 05/12/23 18:07 Dose: 50 mls/hr Documented By: Infusion: 05/12/23 18:07 Dose: Infused Documented By: Admin: 05/12/23 17:12 Dose: 50 mls/hr Documented By: Infusion: 05/12/23 17:12 Dose: Infused Documented By: Admin: 05/12/23 15:13 Dose: 50 mls/hr Documented By: JOVANI Lidocaine (Lidocaine 5% 1 Patch) 1 patch TD NOW STA Stop: 05/12/23 13:20 Last Admin: 05/12/23 13:28 Dose: 1 patch Documented By: SU Medical Decision Making Differential Diagnosis Cellulitis, abscess, MRSA infection, DVT, necrotizing fasciitis, dermatitis, drug eruption, allergic reaction, as well as other pathologies. Home Medications was personally reviewed by il Laboratory Data Attestation: I reviewed the patient's lab results. 05/13/23 05:26 05/13/23 05:26 Lab Results 05/12/23 05/12/23 Range/Units 11:49 11:50 WBC 11.04 H (4.8-10.8) K/ul RBC 4.31 (4.20-5.40) M/uL Hgb 15.2 (12.0-16.0) g/dl Hct 43.7 (37.0-47.0) % MCV 101.4 H (80.0-100.0) fL MCH 35.3 H (25.0-34.0) pg MCHC 34.8 (32.0-36.0) g/dL RDW Std Deviation 46.5 H (36.4-46.3) fL RDW Coeff of Gissell 12.4 (11.5-14.5) % Plt Count 111 L (130-400) K/uL MPV 12.5 H (9.4-12.4) fL Immature Gran % (Auto) 0.4 % Neut % (Auto) 64.9 % Lymph % (Auto) 13.7 % [place] % (Auto) 20.8 % Eos % (Auto) 0.0 % Baso % (Auto) 0.2 % Neut # (Auto) 7.17 H (1.40-6.50) K/uL Lymph # (Auto) 1.51 (1.20-3.40) K/uL [place] # (Auto) 2.30 H (0.11-0.59) K/uL Eos # (Auto) 0.00 (0.00-0.50) K/uL Baso # (Auto) 0.02 (0.00-0.20) K/uL Immature Gran # (Auto) 0.04 (0.01-0.20) K/uL ESR 51 H (0-30) mm/hr Sodium 134 L (136-145) mmol/L Potassium 3.9 (3.5-5.1) mmol/L Chloride 103 (98-107) mmol/L Carbon Dioxide 21 (21-32) mmol/L Anion Gap 10 (3-11) BUN 10 (6-23) mg/dl Creatinine 0.85 (0.6-1.2) mg/dl Est Cr Clr Drug Dosing 39.5 ml/min Est GFR ( Amer) 70.9 ml/min Est GFR (Non-Af Amer) 61.2 ml/min BUN/Creatinine Ratio 11.8 (10-20) Glucose 103 H (70-99(Fasting)) mg/dl Lactate 1.0 (0.4-2.0) mmol/L Calcium 8.9 (8.6-10.3) mg/dl Magnesium 1.3 L (1.7-2.4) mg/dl Total Bilirubin 2.1 H (0.2-1.0) mg/dl AST 26 (13-39) U/L ALT 21 (7-52) U/L Alkaline Phosphatase 80 (34-104) U/L C-Reactive Protein 15.71 H (0-0.5) mg/dl Total Protein 6.1 (6.0-8.3) gm/dl Albumin 3.5 (3.4-5.0) gm/dl Globulin 2.6 (2.5-4.0) gm/dl Albumin/Globulin Ratio 1.3 (0.9-2) Procalcitonin 0.13 (0-0.5) ng/ml MDM Narrative This patient is an 88-year-old female who presents to the emergency department for evaluation of worsening cellulitis of the left lower extremity. Patient has been on Keflex for about 48 hours and has had worsening pain and swelling. She does have a blistered area which was opened with a sterile 18-gauge needle and culture obtained. After discussion with the ED pharmacist, she was given IV Zosyn and daptomycin. Case was then discussed with [facility], who agreed to put the patient for further care Discharge Plan Visit Data Chief Complaint: Infection Stated Complaint: CELLULITIS LEFT LEG ED Provider: Vee Zhao ED Midlevel Provider: Kerri Escudero Patient Disposition: Admitted As Inpatient Discharge Instructions Interventions: ED Discharge Assessment Last Done: 05/12/23 13:37
[2023-05-12] MEDS ORDERED: DEXTROSE 5% IV SCH (21:30)
[2023-05-12] MEDS ORDERED: TAZOBACTAM IV SCH (21:30)
[2023-05-12] MEDS ORDERED: PIPERACILLIN IV SCH (21:30)
[2023-05-12] MEDS ORDERED: MINI B IV SCH (21:30)
[2023-05-13 06:05] LABS: Basophils # (auto) 0.02 K/uL (0.00-0.20); Basophils % (auto) 0.3 %; Hematocrit (blood only) 39.4 % (37.0-47.0); Hemoglobin 13.7 g/dl (12.0-16.0); Immature Granulocytes # (auto) 0.01 K/uL (0.01-0.20); Immature Granulocytes % (auto) 0.1 %; Lymphocytes # (auto) 1.49 K/uL (1.20-3.40); Lymphocytes % (auto) 19.3 %; Mean Corpuscular Hgb Conc 34.8 g/dL (32.0-36.0); Mean Corpuscular Volume 100.8 fL (80.0-100.0); Monocytes # (auto) 1.74 K/uL (0.11-0.59); Monocytes % (auto) 22.6 %; Neutrophils # (auto) 4.45 K/uL (1.40-6.50); Neutrophils % (auto) 57.7 %; Platelet Count 103 K/uL (130-400); RDW Coefficient of Variation 12.1 % (11.5-14.5); RDW Standard Deviation 45.1 fL (36.4-46.3); Red Blood Count 3.91 M/uL (4.20-5.40); White Blood Count 7.71 K/ul (4.8-10.8)
[2023-05-13 06:15] LABS: BUN Creatinine Ratio 11.1 (10-20); C Reactive Protein 16.35 mg/dl (0-0.5); Calcium 8.2 mg/dl (8.6-10.3); Creatinine Clr Calc Pharmacy 41.5 ml/min; Est GFR (African American) 75.2 ml/min; Est GFR (Non-African American) 64.8 ml/min; Magnesium 1.9 mg/dl (1.7-2.4); Potassium 3.5 mmol/L (3.5-5.1)
--- NOTE | 2023-05-13 06:33 | Electrocardiogram Report ---
Test Reason : Blood Pressure : / mmHG Vent. Rate : 066 BPM Atrial Rate : 066 BPM P-R Int : 140 ms QRS Dur : 086 ms QT Int : 436 ms P-R-T Axes : 051 -23 043 degrees QTc Int : 457 ms Sinus rhythm with frequent Premature ventricular complexes Nonspecific ST abnormality Poor R wave progression, consider anterior AK vs. lead placement vs. LVH Abnormal ECG When compared with ECG of 10-MAR-2020 12:54, Premature ventricular complexes are now Present Confirmed by Azam Uribe ([id number]) on 05/13/2023 6:33:16 AM Referred By: REFERRED SELF Confirmed By:Azam Uribe
[2023-05-13] MEDS: LIDOCAINE 5% 1 PATCH TD SCH (08:54)
[2023-05-13] MEDS: METOPROLOL TARTRATE 100 MG TAB PO SCH (08:55)
[2023-05-13] MEDS: BUDESONIDE EC 3 MG CAP PO SCH (08:55)
[2023-05-13] MEDS: ESCITALOPRAM OXALATE 20 MG TAB PO SCH (08:56)
[2023-05-13] MEDS: SPIRONOLACTONE 12.5 MG TAB PO SCH (08:56)
[2023-05-13] MEDS: LOSARTAN POTASSIUM 50 MG TAB PO SCH (08:57)
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
[2023-05-14 07:11] LABS: Basophils # (auto) 0.01 K/uL (0.00-0.20); Basophils % (auto) 0.1 %; Hematocrit (blood only) 40.9 % (37.0-47.0); Hemoglobin 13.8 g/dl (12.0-16.0); Immature Granulocytes # (auto) 0.02 K/uL (0.01-0.20); Immature Granulocytes % (auto) 0.3 %; Lymphocytes # (auto) 1.52 K/uL (1.20-3.40); Lymphocytes % (auto) 20.8 %; Mean Corpuscular Hemoglobin 34.7 pg (25.0-34.0); Mean Corpuscular Hgb Conc 33.7 g/dL (32.0-36.0); Mean Corpuscular Volume 102.8 fL (80.0-100.0); Mean Platelet Volume 12.5 fL (9.4-12.4); Monocytes # (auto) 1.41 K/uL (0.11-0.59); Monocytes % (auto) 19.3 %; Neutrophils # (auto) 4.34 K/uL (1.40-6.50); Neutrophils % (auto) 59.5 %; Platelet Count 112 K/uL (130-400); RDW Coefficient of Variation 12.1 % (11.5-14.5); RDW Standard Deviation 45.7 fL (36.4-46.3); Red Blood Count 3.98 M/uL (4.20-5.40)
[2023-05-14 07:12] VITALS: BP 106/70; PULSE 67; RESP 16; TEMP 97.7; O2SAT 96
[2023-05-14 07:23] LABS: BUN Creatinine Ratio 10.5 (10-20); C Reactive Protein 11.94 mg/dl (0-0.5); Calcium 8.4 mg/dl (8.6-10.3); Creatinine Clr Calc Pharmacy 35.3 ml/min; Est GFR (Non-African American) 53.5 ml/min; Magnesium 1.7 mg/dl (1.7-2.4); Potassium 3.6 mmol/L (3.5-5.1)
[2023-05-14] MEDS: ACETAMINOPHEN 325 MG TAB PO PRN (08:04)
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
== END 2023-05-14 14:56 | disposition home or self-care (01) ==
LOC: ED 11:23 → INTOOBSV 13:17 → 3W 13:17 → SUATTDRO 13:17 → 3W 13:37

== ENCOUNTER 2024-02-26 13:17 | Observation (INO) ==
--- NOTE | 2024-02-26 13:31 | Emergency Department Note ---
ED Visit Note I was consulted by the Advanced Practice Provider Waqas Kessler PA-C. I performed a substantive portion of the visit including all aspects of medical decision making. Patient presented due to concern for some right elbow swelling. Blood work was obtained patient noted to have ELENA. Patient was admitted to the medicine service. .
[2024-02-26 14:21] LABS: Basophils # (auto) 0.03 K/uL (0.00-0.20); Basophils % (auto) 0.4 %; Hematocrit (blood only) 38.3 % (37.0-47.0); Hemoglobin 13.2 g/dl (12.0-16.0); Immature Granulocytes # (auto) 0.01 K/uL (0.01-0.20); Immature Granulocytes % (auto) 0.1 %; Lymphocytes % (auto) 20.7 %; Mean Corpuscular Hemoglobin 32.8 pg (25.0-34.0); Mean Corpuscular Hgb Conc 34.5 g/dL (32.0-36.0); Monocytes % (auto) 19.4 %; Neutrophils # (auto) 4.29 K/uL (1.40-6.50); Neutrophils % (auto) 59.4 %; Platelet Count 179 K/uL (130-400); RDW Coefficient of Variation 12.5 % (11.5-14.5); RDW Standard Deviation 43.8 fL (36.4-46.3); Red Blood Count 4.03 M/uL (4.20-5.40); White Blood Count 7.23 K/ul (4.8-10.8)
[2024-02-26 14:38] LABS: Albumin Globulin Ratio 1.1 (0.9-2); Albumin Level 3.5 gm/dl (3.4-5.0); BUN Creatinine Ratio 9.8 (10-20); Bilirubin,Total 0.9 mg/dl (0.2-1.0); Calcium 9.2 mg/dl (8.6-10.3); Globulin 3.1 gm/dl (2.5-4.0); Potassium 4.2 mmol/L (3.5-5.1); Total Protein 6.6 gm/dl (6.0-8.3)
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
[2024-02-26] MEDS: DAPTOmycin 225 MG in SYRINGE 0 ML IV STA (15:40)
--- NOTE | 2024-02-26 15:48 | History & Physical Report ---
Date of Service February 26, 2024 Assessment & Plan (1) Swelling of right elbow: Plan: Worsening right elbow swelling x 2 days She has required her elbow to be drained in the past; placed on Keflex on 02/24 No history of MRSA infections No purulent drainage from elbow No leukocytosis; afebrile Blood culture obtained Daptomycin 225 mg IV x 1 in the ED Aerobic/anaerobic wound culture obtained I&D scheduled in the ED on 02/25 Orthopedics consult appreciated Ancef 1000 mg IV q8h Daily wound care A.m. CBC, BMP (2) ELENA (acute kidney injury): Plan: BUN 19, creatinine 1.94 (baseline around 1.08), EGFR 45.3 Avoid nephrotoxic agents where possible Hold spironolactone, losartan Encourage p.o. fluids in the setting of national IVF shortage (3) Factor 5 Leiden mutation, heterozygous: Plan: Continue apixaban (4) Septic bursitis: (5) Cellulitis of right elbow: Plan Disposition: [facility] Regular diet VTE PPx: On Eliquis History of Present Illness Chief Complaint: Right elbow swelling Primary Care Provider: LUIS Mcgovern Obdulia is a pleasant 89-year-old female with PMH of DVT/PE (on Eliquis), osteoarthritis, GI bleed, CAD, cellulitis, and CKD. She presented on 02/25 for worsening swelling and drainage from her right elbow x 2 days. She reports that her elbow was initially itchy and bothersome 4 days ago, but then developed a; bubble" that she thought looked like a hematoma on Friday 02/23. She denies any prior history of injuries to her elbow. She does not believe she banged her elbow or scratched it causing injury. She does have a history of lower extremity cellulitis, but never on her right upper extremity. No fevers at home. No prior history of MRSA infections with her cellulitis. Patient went to express care yesterday and was prescribed antibiotics (Keflex); she reports it was unable to be drained at [facility]. She then saw [facility] orthopedics today, and was referred referred to the ED for drainage. She reports weeping drainage from the elbow as well as red/pink blood; she denies any pus drainage. She denies any elbow pain at present. Patient took his regular medicines today; no recent change in medicine. Despite living in assisted living, patient manages her own medicine at home. She denies smoking or tobacco use. She does endorse daily alcohol use; 1 glass of white wine at night. Patient's vitals are stable at time of admission. ED course: Daptomycin 225 mg IV Right elbow I&D ROS: Patient endorses R elbow swelling/itching, and chronic tingling in the fingers. Patient denies fever, chills, night-sweats, dizziness, lightheadedness, RAMIRES, chest pain, SOB, cough, abdominal pain, N/V/D, burning with urination, blood in the urine/stool, dysuria, or loss of ability to bend right elbow. Allergies Allergy/AdvReac Type Severity Reaction Status Date / Time No Known Allergies Allergy Verified 02/25/24 09:20 Home Medications Medication Instructions Recorded Confirmed Type losartan 100 mg tablet 100 mg PO QAM 07/08/18 02/26/24 History metoprolol tartrate 50 mg tablet See Rx Instructions .Route .COMPLEX 02/21/21 02/26/24 History spironolactone 25 mg tablet 25 mg PO QAM 09/19/22 02/26/24 History apixaban 2.5 mg tablet 2.5 mg PO BID #180 tabs 09/24/23 02/26/24 Rx cephalexin 500 mg capsule 500 mg PO Q12H 7 days #14 caps 02/25/24 02/26/24 Rx Past Med/Surg History Problem List (Updated 02/27/24 @ 07:44 by Stanley Thomas MD) Septic bursitis Cellulitis of right elbow (Acute) Factor 5 Leiden mutation, heterozygous ELENA (acute kidney injury) Swelling of right elbow Chronic kidney disease, stage 3a Atrophy of left kidney Hypomagnesemia Chronic venous insufficiency of lower extremity Sensorineural hearing loss (SNHL) of both ears Cellulitis of hand (Acute) Skin tear of left forearm without complication (Acute) Carotid artery disease Traumatic wound (Acute) Lower extremity edema Hematoma of right lower extremity (Acute) Stomach ulcer Compression fracture Acute upper GI bleed (Acute) Gastritis (Acute) Melena (Acute) Anemia (Acute) Myofascial pain Lumbago (Chronic) Right lumbar radiculitis (Chronic) Lumbar canal stenosis (Chronic) Multilevel Osteoarthritis (Chronic) Degenerative disc disease (Chronic) Medical History Cellulitis Hematochezia Hypomagnesemia Macrocytic anemia Hyponatremia HTN (hypertension) Chronic pulmonary embolism Chronic deep vein thrombosis (DVT) Cellulitis of right leg Collagenous colitis On anticoagulant therapy Factor 5 Leiden mutation, heterozygous Anxiety Hypertension Surgical History History of total abdominal hysterectomy and bilateral salpingo-oophorectomy Status post right hip replacement History of colonoscopy History of tooth extraction History of tonsillectomy and adenoidectomy H/O bilateral cataract extraction History of blepharoplasty Family History Other No significant family history Social History Smoking Status: Former smoker Tobacco Type: Cigarettes Cigarettes Per Day: last smoke 1975; Second Hand Exposure: No; Do You Dip or Chew Tobacco: No; Hx Alcohol Use: Yes Alcohol type: wine Hx Substance Use: No Preferred Language: [place] Communication Ability: Effective Visual Impairment: No Limitations 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: Normal Machine Clothing Replacer Required: No Beliefs That Will Affect Care: None marital status: / Current Living Situation: Personal Care Facility Current Living Situation Comment: [facility] current occupational status: retired Feels Safe at Home: Yes Safety Concerns: Feels Safe At This Time Diet: regular Assistive Devices: Denture - Upper and Walker Review of Systems 2 Review of Systems: See HPI above Physical Exam 2 Physical Exam: General: no acute distress; pleasant affect; non-toxic appearing; frail appearing; cooperative; SpO2 98% on RA HEENT: normocephalic, atraumatic; no scleral icterus; PERRLA; vision and hearing grossly intact Neck: supple; no lymphadenopathy; trachea midline Skin: warm, dry without signs of tenting; no cyanosis; no rashes or bruising noted Right elbow: Patient demonstrates full active ROM; the elbow is warm to touch and erythematous and swollen; circular lesion/hematoma (~3 cm in diameter) draining clear/bloody liquid discharge (see photo below) CV: chest wall NTP; RRR; S1/S2 normal; no murmurs/rubs/gallops; pulses intact and symmetric at radial, DP, and PT Lungs: no acute respiratory distress; symmetrical chest wall expansion; clear breath sounds across all lung kapoor w/o adventitious sounds; no wheezing ABD: Soft, NTP; BS present; no rebound/guarding; no distention MSK: no tics or fasciculations; no edema noted in the LEs b/l, nonerythematous Neuro: A&Ox3; normal mood and affect; fluent speech; no focal deficits; sensation grossly intact in the LEs b/l Results & Data Results & Data Vital Signs (Past 12 Hours) Vital Signs Temp Pulse Pulse Resp BP BP Pulse Ox 02/26/24 15:44 74 18 158/79 H 98 02/26/24 13:20 36.5 C 74 16 136/82 96 O2 Del Method 02/26/24 15:44 Room Air 02/26/24 13:20 Room Air Laboratory Results Abnormal lab results 02/26/24 Range/Units 14:07 RBC 4.03 L (4.20-5.40) M/uL [place] # (Auto) 1.40 H (0.11-0.59) K/uL Creatinine 1.94 H (0.6-1.2) mg/dl BUN/Creatinine Ratio 9.8 L (10-20) Glucose 113 H (70-99(Fasting)) mg/dl Diagnostic Findings Elbow X-Ray 02/26/24 13:54 XR elbow RT min 3V routine CLINICAL HISTORY: Right elbow infection. COMPARISON: None FINDINGS: No acute fractures are identified. There is no definite evidence for a joint effusion. Soft tissue swelling overlying the olecranon is noted. No bony erosion is identified. Remodeling of the radial head is degenerative. There is moderate joint space narrowing and osteophytosis within the right elbow. Chondrocalcinosis is noted. IMPRESSION: 1. No fractures within the right elbow. No radiographic evidence for acute osteomyelitis. No evidence for a joint effusion. 2. Soft tissue swelling overlying the olecranon. 3. Moderate right elbow osteoarthritis. ACT 112: Negative or not required by law. Electronically signed by: Hubert Nascimento M.D. 02/26/2024 2:57 PM Code Status & VTE Plan Code Status DNR/DNI (confirmed with patient at bedside; she also reports she is in the process of filling out a POLST form this Thursday 11/21 with her PCP to make her a DNR/DNI) Supervising Physician Co-Signing Physician Notes I personally saw and examined the patient. I independently reviewed the labs, EKG, imaging, problem list, medication list, past medical history and family history. I verified all myrick points and agree with Neftali Perez PA-C with the following exceptions and/or additions: 89 year old female presents to the ER with right elbow swelling and erythema. Started on Keflex just yesterday. Prior culture from urgent care growing staph aureus without sensitives. No fever or chills. O/E HS RRR, no murmurs, Chest CTAB, Abdo SNT, right elbow cellulitis with drained bursa A/P Infected olecranon septic bursitis with cellulitis - No sensitives back from staph aureus. Likely sensitives back tomorrow and can be switched to cephazolin at that time if MSSA or continued on daptomycin if confirmed MRSA. Consult orthopedics. ELENA - as above PG Care Time/CCT Total # of Minutes Spent Total Time Spent with Patient: Total time spent is greater than 50% in coordination of care (as documented) at patient's floor/unit and/or counseling patient: Coding [place] [address] INT INP/OBS CARE 2/55MIN Patient Type Established Medical Decision Making Moderate Complexity Diagnoses Swelling of right elbow M25.421 ELENA (acute kidney injury) N17.9 Factor 5 Leiden mutation, heterozygous D68.51 Septic bursitis M71.10 Cellulitis of right elbow L03.113
[2024-02-26] MEDS: LIDOCAINE 1% LOCAL 20 ML VIAL INFIL ONE (16:15)
[2024-02-26] MEDS ORDERED: ONDANSETRON INJ 2 MG/ML 2 ML VIAL IV PRN (18:17)
[2024-02-26] MEDS ORDERED: MELATONIN 3 MG TAB PO PRN (18:17)
[2024-02-26] MEDS ORDERED: ACETAMINOPHEN 325 MG TAB PO PRN (18:17)
[2024-02-26] MEDS: APIXABAN 2.5 MG TAB PO SCH (20:35)
[2024-02-26] MEDS: METOPROLOL TARTRATE 50 MG TAB PO SCH (20:35)
[2024-02-26] MEDS ORDERED: ceFAZolin 1000MG 1,000 MG/7.5 ML SYR IV SCH (23:45)
[2024-02-27 06:37] LABS: Hematocrit (blood only) 35.8 % (37.0-47.0); Hemoglobin 12.3 g/dl (12.0-16.0); Mean Corpuscular Hemoglobin 32.6 pg (25.0-34.0); Mean Corpuscular Hgb Conc 34.4 g/dL (32.0-36.0); Mean Platelet Volume 12.6 fL (9.4-12.4); Platelet Count 174 K/uL (130-400); RDW Coefficient of Variation 12.3 % (11.5-14.5); RDW Standard Deviation 42.6 fL (36.4-46.3); Red Blood Count 3.77 M/uL (4.20-5.40)
[2024-02-27 07:07] LABS: BUN Creatinine Ratio 10.7 (10-20); Creatinine Clr Calc Pharmacy 19.6 ml/min; Potassium 4.2 mmol/L (3.5-5.1)
--- NOTE | 2024-02-27 08:34 | Orthopedic Consultation ---
Date of Consultation February 27, 2024 Assessment & Plan (1) Cellulitis of right elbow: recommend IV antibiotics per the internal medicine team given presumed cellulitis. Recommend tailoring antibiotic treatment to her culture results. Recommend daily dressing changes. She should have her dressing removed each day and then shower. After she has showered she can have new 4 x 4, ABD and Paul wrap applied. No restrictions on weightbearing or elbow range of motion. Recommend she continues on oral antibiotics until her wound is completely healed over. Recommend protein shake supplementation to boost her nutritional status to help with wound healing. Follow-up in the orthopedic clinic 1 week after discharge from the hospital with the orthopedic PA. (2) Hematoma of right elbow: History of Present Illness Attending Physician: Brinda Powell MD History of Present Illness 89-year-old female with right elbow pain. Medical history significant for history of DVT currently on Eliquis. She says she bruises easily. She does not recall any trauma to her right elbow. However she says it had been itchy and she was scratching it somewhat vigorously recently. On Sunday she started to hurt. She says on Sunday she went to urgent care. She then saw John and was referred to the [facility] emergency room yesterday. She was seen in the emergency room and had an I&D performed of the right elbow olecranon bursa due to fluid collection here. Per the emergency room provider the fluid appeared to be hematoma and not purulent. Culture was obtained and the wound was packed. Patient was seen examined on the floor this morning. She reports her elbow feels a little better than yesterday. Denies fevers or chills. She is concerned because she does not believe she is on any antibiotics at present. No numbness or tingling down her arm. Does not recall any trauma to the elbow. Allergies Allergy/AdvReac Type Severity Reaction Status Date / Time No Known Allergies Allergy Verified 02/25/24 09:20 Home Medications Medication Instructions Recorded Confirmed Type losartan 100 mg tablet 100 mg PO QAM 07/08/18 02/26/24 History metoprolol tartrate 50 mg tablet See Rx Instructions .Route .COMPLEX 02/21/21 02/26/24 History spironolactone 25 mg tablet 25 mg PO QAM 09/19/22 02/26/24 History apixaban 2.5 mg tablet 2.5 mg PO BID #180 tabs 09/24/23 02/26/24 Rx cephalexin 500 mg capsule 500 mg PO Q12H 7 days #14 caps 02/25/24 02/26/24 Rx Patient History Medical History Cellulitis Hematochezia Hypomagnesemia Macrocytic anemia Hyponatremia HTN (hypertension) Chronic pulmonary embolism Chronic deep vein thrombosis (DVT) Cellulitis of right leg Collagenous colitis On anticoagulant therapy Factor 5 Leiden mutation, heterozygous Anxiety Hypertension Surgical History History of total abdominal hysterectomy and bilateral salpingo-oophorectomy Status post right hip replacement History of colonoscopy History of tooth extraction History of tonsillectomy and adenoidectomy H/O bilateral cataract extraction History of blepharoplasty Family History Other No significant family history Social History Smoking Status: Former smoker Tobacco Type: Cigarettes Cigarettes Per Day: last smoke 1975; Second Hand Exposure: No; Do You Dip or Chew Tobacco: No; Hx Alcohol Use: Yes Alcohol type: wine Hx Substance Use: No Preferred Language: Serbian Communication Ability: Effective Visual Impairment: No Limitations 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: Normal Gutter Hanger Required: No Beliefs That Will Affect Care: None marital status: / Current Living Situation: Personal Care Facility Current Living Situation Comment: [facility] current occupational status: retired Feels Safe at Home: Yes Safety Concerns: Feels Safe At This Time Diet: regular Assistive Devices: Denture - Upper and Walker Physical Exam Physical Exam: Dressing was taken down over the right elbow. There is mild erythema around the wound. Wound packing is removed. I attempting to express additional fluid or blood out from the olecranon bursa and there was no drainage whatsoever. She has intact elbow range of motion. She is distally neurovascularly intact. Results & Data Vital Signs (Past 12 Hours) Vital Signs Temp Pulse Resp BP Pulse Ox O2 Del Method 02/27/24 07:29 36.4 C L 78 16 132/78 95 Room Air
[2024-02-27] MEDS: METOPROLOL TARTRATE 100 MG TAB PO SCH (09:33)
--- NOTE | 2024-02-27 12:18 | Hospitalist Progress Note ---
Date of Service February 27, 2024 Assessment & Plan (1) Cellulitis of right elbow: Plan: Presented with infected olecranon septic bursitis with cellulitis. [facility] one day prior to [facility] - I&D performed in ED on admission. No leukocytosis, afebrile, procal WNL - Wound culture from urgent care growing MRSA - Repeat wound culture and blood cultures are pending. Continue to monitor - Continue Daptomycin Q48H for CrCl - Ortho consulted > Recommends daily dressing changes. After she has showered she can have new 4 x 4, ABD and Paul wrap applied. No restrictions on weightbearing or elbow range of motion > Recommends continuing oral antibiotics until her wound is completely healed over > Protein shake supplementation to boost nutritional status to help with wound healing > Follow-up in the orthopedic clinic 1 week after discharge from the hospital with the orthopedic PA. (2) ELENA (acute kidney injury): Plan: Baseline creatinine around 1 - Cr elevated on admission, improving though continues to remain elevated, with associated none anion gap metabolic acidosis - Hold spironolactone and losartan - Avoid nephrotoxic agents where possible - Encourage p.o. fluids in the setting of national IVF shortage (3) Factor 5 Leiden mutation, heterozygous: Plan: Continue apixaban (4) Monocytosis: Plan: With an absolute monocytosis persistent since 05/2023. Could be reactive? But can also be associated with malignancy Check peripheral smear and follow CBC in the morning Recommend hematology consult as an outpatient Plan Continued Dapto Q48H for CrCl Changed dressing at bedside Ordered Boost supplementation VTE PPx: On Eliquis CODE STATUS: DNR/DNI Admission and Anticipated Discharge Date Admission Date: February 26, 2024 Supervising Physician Co-Signing Physician Notes PA Supervision Note: I did not personally see or examine the patient today, but I verified all myrick points of GURU Castillo's assessment and plan with the following exceptions/additions: None Subjective Patient seen and evaluated at bedside. She reports feeling well and denies pain in her elbow at this time. She reports her normal range of motion in her right elbow. She describes that late last week, her right elbow was itchy and she was firmly scratching it. Then on Sunday, she felt that there was a hematoma on her right elbow which prompted [facility]. She had some questions regarding her antibiotic. All questions addressed and answered. Denies nausea, abdominal pain, chest pain, SOB, headache, chills. No additional complaints or concerns at this time. Physical Exam 2 Physical Exam: General: No acute distress, nondiaphoretic, well-developed, well-nourished. Skin: The skin was without rashes, erythema, edema, or bruising. Right Elbow: Full active ROM. Mild erythema. No drainage. Swelling subsided. Sensation intact to light touch. Distal pulses present. Changed dressing at bedside with RN. Cardiac: Regular rate and rhythm without murmurs gallops or rubs. Pulm: Clear to auscultation bilaterally without wheezes, rales or rhonchi. No respiratory distress. 95% on room air. Abdominal: Soft, nontender, nondistended. Bowel sounds present. Neuro: A&O x3. No focal neurological deficits. Results & Data Results & Data Vital Signs (Past 12 Hours) Vital Signs Temp Pulse Resp BP Pulse Ox O2 Del Method 02/27/24 07:29 97.5 F L 78 16 132/78 95 Room Air Laboratory Results Reviewed CBC Reviewed CMP Reviewed wound and blood cultures PG Care Time/CCT Total # of Minutes Spent Total Time Spent with Patient: Total time spent is greater than 50% in coordination of care (as documented) at patient's floor/unit and/or counseling patient: Coding Level of Care Code 28115 SUB INP/OBS CARE 3/50MIN Diagnoses Cellulitis of right elbow L03.113 ELENA (acute kidney injury) N17.9 Factor 5 Leiden mutation, heterozygous D68.51 Monocytosis D72.821
[2024-02-27 16:23] VITALS: PULSE 77
[2024-02-27 20:28] VITALS: RESP 16; TEMP 97.9
[2024-02-28 08:29] VITALS: BP 148/87; O2SAT 97
[2024-02-28] MEDS: DAPTOmycin 225 MG in SYRINGE 0 ML IV SCH (08:43)
[2024-02-28 08:54] LABS: BUN Creatinine Ratio 13.7 (10-20); Calcium 9.4 mg/dl (8.6-10.3); Creatinine Clr Calc Pharmacy 25.1 ml/min; Potassium 4.6 mmol/L (3.5-5.1)
[2024-02-28 10:02] LABS: Basophils # (auto) 0.03 K/uL (0.00-0.20); Basophils % (auto) 0.6 %; Hematocrit (blood only) 38.1 % (37.0-47.0); Hemoglobin 13.1 g/dl (12.0-16.0); Lymphocytes # (auto) 1.66 K/uL (1.20-3.40); Lymphocytes % (auto) 34.4 %; Mean Corpuscular Hemoglobin 32.6 pg (25.0-34.0); Mean Corpuscular Hgb Conc 34.4 g/dL (32.0-36.0); Mean Corpuscular Volume 94.8 fL (80.0-100.0); Mean Platelet Volume 12.9 fL (9.4-12.4); Monocytes # (auto) 0.85 K/uL (0.11-0.59); Monocytes % (auto) 17.6 %; Neutrophils # (auto) 2.29 K/uL (1.40-6.50); Neutrophils % (auto) 47.4 %; Platelet Count 195 K/uL (130-400); RDW Coefficient of Variation 12.4 % (11.5-14.5); RDW Standard Deviation 43.1 fL (36.4-46.3); Red Blood Count 4.02 M/uL (4.20-5.40); White Blood Count 4.83 K/ul (4.8-10.8)
[2024-02-28 10:44] LABS: RBC Morphology Unremarkable
--- NOTE | 2024-02-28 11:57 | Orthopedic Progress Note ---
Date of Service February 28, 2024 Assessment & Plan (1) Hematoma of right elbow: Plan: Day #1 following incision and drainage of the wound located on the right elbow in the ER. Patient currently on daptomycin as wound culture from urgent care was positive for MRSA. Exam today reveals a circular open wound with a minimal underlying hematoma however there is no purulent drainage, only a scant amount of serosanguineous drainage, nothing else to drain or express at this time. She has no pain or decreased range of motion and is neurovascularly intact. There is no surrounding erythema. Photo of wound was sent to hospitalist team through [employer] today. Dressing was reapplied by myself. I will return this afternoon to replace BIMAL wrap with tubi-tool room machinist that the patient can take home which will prevent joint stiffness and she can launder this at home. She has no restrictions with weightbearing or range of motion. Continue antibiotics per primary service. Continue daily dressing changes with 4x4, abd pad, and tubi-tool room machinist. Will need appointment scheduled with our office 1 week after she is discharged. (2) Cellulitis of right elbow: Admission and Anticipated Discharge Date Admission Date: February 26, 2024 Subjective Patient seen sitting in her chair this morning. She is doing well with no complaints. She has no pain in her elbow and has not noticed any drainage through the dressing. Her dressing has not been changed today. She denies any numbness or tingling in her fingers or decreased range of motion in her fingers. No fevers or chills. Physical Exam Constitutional: Resting comfortably in no distress. Sitting upright in chair. Very pleasant. Cardiovascular: Radial pulses 2+ bilaterally Musculoskeletal: Right upper extremity: Dressing in place. This was removed by myself and the wound was evaluated. There is a 1.5 x 1.5 cm circular superficial open wound located on the lateral aspect of the distal elbow with a trace amount of underlying hematoma. There is a scant amount of serosanguineous drainage. No purulent discharge. No surrounding erythema. Minimal surrounding soft tissue swelling. Nontender to palpation. No decreased range of motion or pain elicited with active flexion or extension at the elbow. Motor function intact in bilateral upper extremities in all distributions. Neurologic: No sensory deficits in bilateral fingers to light touch. Baccarat Dealer strength 5+ bilaterally. Results & Data Vital Signs (Past 12 Hours) Vital Signs Temp Pulse Resp BP Pulse Ox O2 Del Method 02/28/24 08:26 97.9 F 77 16 148/87 H 97 Room Air
--- NOTE | 2024-02-28 12:26 | Discharge Summary ---
Discharge Summary Date of Service February 28, 2024 Principal Dx & Hospital Course #1 = Principal Diagnosis (1) Cellulitis of right elbow: Presented with infected olecranon septic bursitis with cellulitis. Started on Keflex at [facility] one day prior to admission - I&D performed in ED on admission. No leukocytosis, afebrile, procal WNL - Wound culture from urgent care grew MRSA - Preliminaray repeat wound culture and blood cultures with no growth to date - Ortho consulted -- no restrictions on weightbearing status or elbow ROM. Recommended daily dressing changes. Follow-up in ortho clinic 1 week after discharge - Treated with Daptomycin Q48H for CrCl while inpatient - Discharged on doxycycline 100 mg BID for 10 day total antibiotic course - Continue BID Boost supplements to optimize nutrition to promote wound healing (2) ELENA (acute kidney injury): Baseline creatinine around 1 - Cr elevated on admission, improving though continues to remain elevated, with associated none anion gap metabolic acidosis - Held spironolactone and losartan while inpatient, recommended to hold until 03/03 then can resume - Encourage p.o. fluids (3) Monocytosis: With an absolute monocytosis persistent since 05/2023. Could be reactive? But can also be associated with malignancy - Referred for hematology consult as outpatient - Peripheral smear remarkable for mild absolute monocytosis > Pathology report notes in the absence of any other cytopenias or increased WBC, the likelihood of this being a primary hematologic disorder is extremely low. A reactive etiology is favored. Recommend outpt Hematology referral-this was made by Nurse Navigator to Dr. Talha Rodriguez on discharge (4) Factor 5 Leiden mutation, heterozygous: Continue apixaban Plan VTE PPx: On Eliquis CODE STATUS: DNR/DNI Notes For Next Care Provider MRSA right elbow cellulitis treated with dapto inpatient and discharged on doxy for total of 10 day antibiotic course ELENA improving but recommended to hold losartan and spironolactone until 03/03 Mild absolute monocytosis likely reactive, but referred to hematology outpatient Medication Changes From Visit Hold losartan and spironolactone until 03/03 for ELENA Admission HPI Per Admitting Provider Obdulia is a pleasant 89-year-old female with PMH of DVT/PE (on Eliquis), osteoarthritis, GI bleed, CAD, cellulitis, and CKD. She presented on 02/25 for worsening swelling and drainage from her right elbow x 2 days. She reports that her elbow was initially itchy and bothersome 4 days ago, but then developed a; bubble" that she thought looked like a hematoma on Friday 02/23. She denies any prior history of injuries to her elbow. She does not believe she banged her elbow or scratched it causing injury. She does have a history of lower extremity cellulitis, but never on her right upper extremity. No fevers at home. No prior history of MRSA infections with her cellulitis. Patient went to express care yesterday and was prescribed antibiotics (Keflex); she reports it was unable to be drained at [facility]. She then saw [facility] orthopedics today, and was referred referred to the ED for drainage. She reports weeping drainage from the elbow as well as red/pink blood; she denies any pus drainage. She denies any elbow pain at present. Patient took his regular medicines today; no recent change in medicine. Despite living in assisted living, patient manages her own medicine at home. She denies smoking or tobacco use. She does endorse daily alcohol use; 1 glass of white wine at night. Patient's vitals are stable at time of admission. ED course: Daptomycin 225 mg IV Right elbow I&D ROS: Patient endorses R elbow swelling/itching, and chronic tingling in the fingers. Patient denies fever, chills, night-sweats, dizziness, lightheadedness, RAMIRES, chest pain, SOB, cough, abdominal pain, N/V/D, burning with urination, blood in the urine/stool, dysuria, or loss of ability to bend right elbow. Discharge Exam General: No acute distress, nondiaphoretic, well-developed, well-nourished. Skin: The skin was without rashes, erythema, edema, or bruising. Right Elbow: Full active ROM. Surrounding erythema resolved. No drainage from wound. Swelling resolved. Sensation intact to light touch. Distal pulses present. Cardiac: Regular rate and rhythm without murmurs gallops or rubs. Pulm: Clear to auscultation bilaterally without wheezes, rales or rhonchi. No respiratory distress. 97% on room air. Abdominal: Soft, nontender, nondistended. Bowel sounds present. Neuro: A&O x3. No focal neurological deficits. Discharge Plan Discharge Items Patient Disposition: Home - Self-Care Reason For Visit: ELENA, R ELBOW SWELLING Discharge Diagnosis: Right elbow cellulitis, ELENA Condition on Discharge: Good Activity: Resume your previous activity Non-emergency contact: Primary Care Provider Call non-emergency contact if: you have any medication questions, your symptoms worsen and you have a fever Follow-up/Referrals: Senia Bangura CRNP [Primary Care Provider] - 03/03/24 12:45 pm (Follow-up in 1 week) Diet: Regular Addtl Attending Provider Instructions: Hnery Serrano were admitted to the hospital with right elbow cellulitis and abscess and an acute kidney injury (ELENA). Cellulitis is an infection of the skin/soft tissues caused by bacteria. Bacteria can enter the body through broken skin; this can happen with a cut, scratch, or insect bite. You have been treated in the hospital with IV antibiotics, and will be discharged with oral antibiotics to continue taking at home. Your ELENA has improved, though your kidney function is not totally back to your baseline yet. You have NO restrictions with your right elbow/arm regarding weightbearing or activity level. Upon discharge from the hospital: * Take doxycycline (oral antibiotic) twice daily until 03/07. This will complete a day 10 course of antibiotics. It is important to complete this course of antibiotics even if you feel better. Not completing your antibiotics can make the infection worsen, return, and make future infections harder to treat. * Continue wound care on your right elbow. > Change your dressing daily after showering, then apply 4x4, ABD pad, and paul wrap. * Hold taking your Losartan and Spironolactone until Sunday, 03/03. This is to allow your kidney function to return to normal. * Drink plenty of water. This will also help your kidney function. * Follow-up with your PCP in 1 week. * Follow-up with orthopedics in 1 week. * Follow-up with hematology outpatient. This is with regards to your elevated monocytes (a type of white blood cell) in your blood stream. A referral has been made and their office will contact you to schedule an appointment. Please return to the hospital if you experience any of the following: Fever of 100.5 F or higher, trouble or pain with moving the joints above or below the infected area, discharge or pus draining from the infected area, pain that gets worse in or around the infected area, redness that gets worse and around the infected area, shaking chills, worsened swelling of the infected area, persistent vomiting, lightheadedness, dizziness, passing out, shortness of breath, difficulty breathing, or chest pain. It was a pleasure taking care of you while you were in the hospital, Janine Castillo PA-C Pending Studies at Discharge: Yes Studies:: Peripheral smear Stand-Alone Forms: My [facility], Smoking Cessation Medications and DC Order Prescriptions: New doxycycline hyclate 100 mg capsule 100 mg PO BID Qty: 16 0RF Continued metoprolol tartrate 50 mg tablet See Rx Instructions .ROUTE .COMPLEX Rx Instructions: TAKES 100 MG QAM, THEN 50 MG QHS apixaban 2.5 mg tablet 2.5 mg PO BID Qty: 180 3RF Held losartan 100 mg tablet 100 mg PO QAM Hold Instructions: Resume on 03/03/24. spironolactone 25 mg tablet 25 mg PO QAM Hold Instructions: Resume on 03/03/24. Discontinued cephalexin 500 mg capsule 500 mg PO Q12H 7 Days Qty: 14 0RF Discharge Orders: Discharge Order (Routine); Ordered 02/28/24 Ordered By: Janine Castillo Admission Data Admit Date/Time: 02/26/24 16:23 Attending Provider: Brinda Powell Admit Provider: Stanley Thomas Primary Care Provider: Senia Bangura Other Providers: True Davis Other Interventions: Discharge Summary Assessment (RN) Last Done: 02/28/24 12:47 Hospital Stay Data Consultations 02/26/24 18:17 Consult Orthopedic Surgery Routine Pending Results Patient Have Any Pending Studies at Discharge: Yes Discharge Instructions Given to Patient (Per Discharging Provider) Henry Serrano were admitted to the hospital with right elbow cellulitis and abscess and an acute kidney injury (ELENA). Cellulitis is an infection of the skin/soft tissues caused by bacteria. Bacteria can enter the body through broken skin; this can happen with a cut, scratch, or insect bite. You have been treated in the hospital with IV antibiotics, and will be discharged with oral antibiotics to continue taking at home. Your ELENA has improved, though your kidney function is not totally back to your baseline yet. You have NO restrictions with your right elbow/arm regarding weightbearing or activity level. Upon discharge from the hospital: * Take doxycycline (oral antibiotic) twice daily until 03/07. This will complete a day 10 course of antibiotics. It is important to complete this course of antibiotics even if you feel better. Not completing your antibiotics can make the infection worsen, return, and make future infections harder to treat. * Continue wound care on your right elbow. > Change your dressing daily after showering, then apply 4x4, ABD pad, and paul wrap. * Hold taking your Losartan and Spironolactone until Sunday, 03/03. This is to allow your kidney function to return to normal. * Drink plenty of water. This will also help your kidney function. * Follow-up with your PCP in 1 week. * Follow-up with orthopedics in 1 week. * Follow-up with hematology outpatient. This is with regards to your elevated monocytes (a type of white blood cell) in your blood stream. A referral has been made and their office will contact you to schedule an appointment. Please return to the hospital if you experience any of the following: Fever of 100.5 F or higher, trouble or pain with moving the joints above or below the infected area, discharge or pus draining from the infected area, pain that gets worse in or around the infected area, redness that gets worse and around the infected area, shaking chills, worsened swelling of the infected area, persistent vomiting, lightheadedness, dizziness, passing out, shortness of breath, difficulty breathing, or chest pain. It was a pleasure taking care of you while you were in the hospital, Janine Castillo PA-C Supervising Physician Co-Signing Physician Notes PA Supervision Note: I personally saw and examined the patient. I verified all myrick points and agree with GURU Castillo with the following exceptions and/or additions: S-patient feeling much improved, no pain, feels ready for discharge. Denies shortness of breath or chest pain O- Vitals reviewed Gen: AAOx3, NAD HEENT: Anicteric sclerae CV: RRR no mgr nl S1S2 Pulm: CTAB no wcr Ext: Right elbow in dressing and Paul wrap not removed, pictures reviewed from orthopedic surgery PA from earlier today CBC, BMP, peripheral smear reviewed A/Z-25-hw[age]-old female here with right septic olecranon bursitis with abscess and cellulitis, growing MRSA from wounds Stable for discharge to home on oral doxycycline for total of 10 days of antibiotics Follow-up with hematology for monocytosis-likely reactive but could be malignancy. Discussed with patient Total Time Total Time Spent Total Time Spent (In Minutes): Greater than 30 minutes spent completing this discharge process including direct patient care, medication reconciliation, documentation, review of labs and images, and coordination of care. Coding Level of Care Code 55085 INP/OBS DISCH >30 MIN Diagnoses Cellulitis of right elbow L03.113 ELENA (acute kidney injury) N17.9 Monocytosis D72.821 Factor 5 Leiden mutation, heterozygous D68.51
== END 2024-02-28 13:56 | disposition home or self-care (01) ==
LOC: ED 13:17 → 3N 13:17 → SUATTDRO 16:23 → 3N 18:04